=== PATIENT | female | born 1950 | race Caucasian/White ===

== ENCOUNTER 2019-05-12 10:54 | Outpatient (RCR) | payer MEDICARE, SELFPAY ==
--- NOTE | 2019-05-12 11:06 | MM_ITS ---
WS: [id number] BILATERAL DIAGNOSTIC DIGITAL MAMMOGRAM WITH CAD HISTORY: HX OF BREAST CA COMPARISON: 05/08/2018 and 10/23/2017 and 08/24/2016 Bilateral CC and MLO views submitted. Computer aided detection analyzed. Breast composition: There are scattered areas of fibroglandular density. No suspicious masses, microc alcifications or architectural distortion. Status post lumpectomy RIGHT breast. Volume loss in the RI GHT breast. There are some stable calcifications in the central breast which have been present. No ad verse changes. MM/[place] [id number] IMPRESSION: BI-RADS: 2-Benign FOLLOW UP: 1 Year Follow-up
[2019-05-12 11:31] LABS: Basophils # 0.1 10^3/uL (0.0-0.1); Eosinophils # 0.2 10^3/uL (0.0-0.8); Hematocrit 40.2 % (37.0-47.0); Hemoglobin 13.3 g/dL (11.5-15.3); Lymphocytes # 4.3 10^3/uL (0.8-4.8); Lymphocytes % 46.7 %; Mean Corpuscular HGB Conc 33.1 g/dL (30.0-36.0); Mean Corpuscular Hemoglobin 28.6 pg (28.0-34.0); Mean Corpuscular Volume 86.5 fL (81-99); Mean Platelet Volume 8.9 fL (7.4-10.4); Monocytes # 0.6 10^3/uL (0.2-0.9); Monocytes % 6.8 %; Nucleated Red Blood Cells % 0 %; Platelet Count 284 10^3/cmm (130-400); Red Blood Count 4.65 10^6/uL (4.1-5.3); Red Cell Distribution Width 13.2 % (12.1-15.1); White Blood Count 9.2 10^3/uL (4.0-10.0)
[2019-05-12 11:45] LABS: Alanine Aminotransferase 24 U/L (0-33); Albumin Level 4.5 g/dL (3.5-5.2); Alkaline Phosphatase 93 IU/L (35-105); Anion Gap 18.3 (5-19); Aspartate Amino Transferase 24 U/L (0-32); Blood Urea Nitrogen 25 mg/dL (8-23); Calcium 10.7 mg/Dl (8.8-10.2); Carbon Dioxide 21 mmol/L (22-29); Chloride 99 mmol/L (98-107); Globulin 2.6 g/dL (1.3-4.6); Glomerular Filtration Rate 34.4 mL/min (90-130); Glucose 108 mg/dL (74-106); Potassium 4.3 mmol/L (3.5-5.1); Sodium 134 mmol/L (136-145); Total Bilirubin 0.4 mg/dL (0.15-1.2); Total Protein 7.1 g/dL (6.6-8.7)
--- NOTE | 2019-05-18 10:41 | ONC FU_ITS ---
Dr. Kaye Patient Follow-Up Note Patient: Florencia Stearns I Unit #: [id number]: [id number] Dicatated By: Carmelo Kaye M.D.Date of Visit:May 12, 2019 Onc Med Follow-up/Prog Note Chief Complaint: Breast cancer. History of Present Illness: This is a 68 year-old woman with grade 2 invasive ductal carcinoma of the right breast, by clinical evaluation stage at least IIB (T2, N1, M0), ER/VT positive and HER-2/taran positive. She had presented with a palpable lump in her right breast. She was evaluated with diagnostic mammogram on 02/17/2016. It showed a dense irregular mass in the central right breast at the 12:00 axis. It measured 4.4 x 3.3 cm. An enlarged right axillary lymph node measured 2.4 cm. By ultrasound the breast mass measured 3.0 x 3.7 cm. Ultrasound also showed a single axillary lymph node which measured 1.8 cm. The appearance was highly suggestive of malignancy. Needle core biopsy of the breast mass on 02/24/2016 showed grade 2/3 invasive ductal carcinoma with a background of intermediate grade DCIS. The breast prognostic profile showed high Ki-67 at 36%. ER was positive at 55% with VT positive at 8%. The HER-2/taran was also positive, 3+ by IHC with 15.0 HER-2 copies/cell. The amplification ratio by FISH was 4.2. I had seen her initially on 03/08/2016. She then underwent neoadjuvant chemotherapy with TCH-P, cycle 1 beginning on 03/22/2016. Her treatment was complicated by fatigue, neutropenia, and peripheral neuropathy. She did require Neulasta prophylaxis beginning with cycle 2. Following the 4th cycle her neuropathy worsen to grade 3, and with cycles 5 and 6 her treatment was limited to Herceptin and Perjeta, with omission of the Taxotere and carboplatin. During this time she had seen Dr. Skelton for repeat biopsies of the right breast. Pathology was benign, consistent with complete response. She then began radiation to the right breast on 10/22/2016. She completed treatment on 12/07/2016 to a total dose of 6040 cGy. Her treatment also included the right posterior axilla to a dose of 840 cGy and the right supraclavicular region to a dose of 5040 cGy. She continued the Herceptin infusions at 3-week intervals. She received her final cycle of treatment on 03/18/2017. Overall, she tolerated it well. Her DEXA scan on 04/24/2017 showed a T score of -1.6 in the lumbar spine, -1.0 in the left femoral neck, and -0.9 in the right femoral neck. CT pulmonary angiogram on 04/24/2017 showed no evidence of pulmonary embolism. A pleural-based right anterior upper lobe mass measuring 1.5 x 2.1 cm was felt to be consistent with infectious or inflammatory process, though metastatic disease was noted to be an additional consideration. There was right hilar lymphadenopathy measuring 1.7 cm. A 1.1 cm right hepatic low-attenuation lesion was felt to likely represent an incidental cyst or hemangioma. She had further evaluation with PET/CT on 05/13/2017. It was a negative exam with resolution of the right upper lobe pulmonary lesion and no sites of adenopathy or other metastatic disease identified. Minimal FDG uptake involving subcentimeter hilar lymph nodes was suggestive of reactive lymphadenopathy. She began adjuvant hormonal therapy with anastrozole 1 mg daily on 07/15/2017. Her other medical illnesses include hypertension, hyperlipidemia, degenerative arthritis, and chronic anxiety. She also has a history of chronic headache. She has history of smoking 1 pack of cigarettes daily for 15 years, but she quit smoking in 2011. INTERIM HISTORY: She was seen for a scheduled visit on 05/08/2018. She reported significant increase in musculoskeletal pain as well as worsening fatigue and some cognitive dysfunction. At that point I did recommend that she put the anastrozole on hold. At her follow-up visit on 06/09/2018 her symptoms had improved, and at that point she began further adjuvant hormonal therapy with exemestane 25 mg daily. I had seen her for a follow-up visit on 09/09/2018. At that point she had developed an itchy skin eruption. I had suspected that at least some component was medication related, and I did have her stop taking both the exemestane and the alendronate. The skin eruption subsequently improved. However, on 09/22/2018 she was placed in the hospital for overnight observation after presenting to the emergency room with abdominal pain and rectal bleeding. Her CT abdomen/pelvis showed findings consistent with acute colitis or possibly diverticulitis. She was treated empirically with ciprofloxacin and metronidazole. She was discharged the following day, then admitted to [facility] later that same day after she developed nausea/vomiting and fever. She was discharged on 09/28/2018 to continue on the same antibiotic therapy. I had seen for a followup visit on 10/21/2018. At that point she was feeling better and she restarted exemestane 25 mg daily. She is seen for a scheduled visit. She has been feeling pretty good generally. Her main complaint is that just before [place] she: Flu bug with sinusitis symptoms and cough. She is just now getting better. Her energy is not as good, she says she tires real quick. ECOG score is 1. Her appetite is still been good, and her weight is stable. She has not had fever or night sweats. She occasionally has hot flashes. Her sinus symptoms now are better, and she has just occasional cough. She says her breathing is not real good. She does not complain of chest pain. She still has occasional postprandial nausea. She has no other GI or complaints. She has pain in her right shoulder and right arm. She also has back pain on the right side. She has neuropathy pain in her feet and legs. She has numbness in both hands, left worse than right. Medications: Amitriptyline HCl 1 Tablet (of 25 mg) Oral at bedtime, Cholecalciferol 1 Capsule (of 25 mg) Oral daily, Citalopram Hydrobromide 1 (20 mg) Tablet Oral at bedtime, Exemestane 1 Tablet (of 25 mg) Oral daily, Hydrocodone-Acetaminophen 1 - 2 (5-325 mg) Tablet Oral q 4 hours PRN, Lisinopril 1 (20 mg) Tablet Oral daily, Pantoprazole Sodium 1 (40 mg) Tablet, enteric coated Oral daily Allergies: Penicillins and Requip. Review of Systems: Constitutional - Her energy is not as good, and she tires quickly. She is doing light work. Her appetite is good and her weight is stable. No fever or night sweats. She occasionally has hot flashes. ECOG score is 1, ENMT - Her sinus drainage is better. No mouth sores. No sore throat or difficulty swallowing, Hematologic/Lymphatic - No abnormal bruising or bleeding, Respiratory - She has shortness of breath with activity. She occasionally has cough. No pleuritic pain or hemoptysis, Cardiovascular - No angina pain. No palpitations, Gastrointestinal - She has nausea occasinally after eating. No heartburn or acid reflux. No diarrhea or constipation. No blood in the stool or black stools, Genitourinary (F) - No dysuria or hematuria. No urinary frequency. No urgency or incontinence, Musculoskeletal - She has pain in her right shoulder and right arm. She had back pain, and she also has pain in her feet and legs, Integumentary - No skin complications, Neurologic - No headache. She occasionally has dizziness. She has numbness/tingling in both hands, left worse than right, Psychiatric - No anxiety or depression. She has not been sleeping well at night lately. Vital Signs: Performed on May 12, 2019 13:08 Height - 64.00 in Weight - 170.0 lbs (HIGH) BSA - 1.83 sq.m BMI - 29.18 Temperature - 98.0 F (LOW) Pulse - 88 /min Respiration - 22 /min BP - 130/64 mm(hg) O2 Sat - 99 % Pain - 5 Physical Examination: Constitutional - She looks pretty good generally, Eyes - Sclerae nonicteric. Conjunctivae clear, ENMT - No lesions noted in the oral cavity, Hematologic/Lymphatic - No cervical, clavicular, or axillary adenopathy, Respiratory - Lungs are clear with good air movement bilaterally, Cardiovascular - Heart rhythm is regular. There is no murmur, gallop, or rub noted, Abdomen - Soft. Liver and spleen are not enlarged. There is no abdominal mass or ascites noted and there is no inguinal adenopathy, Extremities - No edema, Neurologic - No focal neurologic deficits noted. Impression: 1. Patient with rade 2/3 invasive ductal carcinoma of the right breast, ER/VT positive and HER-2/taran positive. By clinical evaluation her disease is at least stage IIB (T2, N1, MX). 2. She underwent needle core biopsy on 02/24/2016. 3. Neoadjuvant chemotherapy with Taxotere/carboplatin in combination with Herceptin and Perjeta began 03/22/2016. As of 07/11/2016 she had completed 6 cycles of treatment. Following the 4th cycle she developed grade 3 neuropathy, and with cycle 5 and 6 the carboplatin/Taxotere portion of the treatment was held. She did receive the Herceptin/Perjeta at the usual dosages. Her follow-up PET/CT on 06/22/2016 was consistent with a complete response to the neoadjuvant chemotherapy. 4. Her repeat biopsies of the right breast were benign. She was then given radiation to the right breast, completed on 12/07/2016 to a total dose of 6040 cGy. 5. She continued Herceptin at a 3-week dosing interval for a full year of treatment, completed on 03/18/2017. Her other medical illnesses include: 6. Hypertension. 7. Hyperlipidemia. 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 9. Chronic headaches. 10. Chronic anxiety. She began adjuvant hormonal therapy with anastrozole 1 mg daily in July 2017. As of 05/08/2018 the anastrozole was put on hold due to increased fatigue and musculoskeletal pain. At her follow-up visit on 06/09/2018 her symptoms had improved, and at that point she began further adjuvant hormonal therapy with exemestane 25 mg daily. At her follow-up visit on 09/09/2018 she had developed a new skin eruption involving several areas. I had suspected that at least some component was medication related, and I did have her stop both the exemestane and the alendronate. The skin eruption subsequently improved. In the meantime, she was hospitalized with acute colitis, but she had uneventful recovery after antibiotic therapy with ciprofloxacin and metronidazole. As of her follow-up visit in October 2018 she restarted exemestane 25 mg daily. She then continued to have fatigue, and she also complained of pain in her back and lower extremities. She reported some difficulty with memory. However, she has been able to continue the exemestane with acceptable toxicity, and thus far there has been no evidence of recurrence of the breast cancer. Plan: She continues adjuvant hormonal therapy with exemestane 25 mg daily. I will see her again in 6 months, or sooner as needed. Signed By: Carmelo Kaye M.D. <<Signature on File>>
== END 2019-06-05 23:59 | disposition home or self-care (01) ==
LOC: ONCMED 10:54
PROVIDERS: Family Provider Physician Assistant Medical; PCP Physician Assistant Medical; Visit Provider Internal Medicine Medical Oncology
DX: C50.111 Malignant neoplasm of central portion of right female breast (principal); I10 Essential (primary) hypertension; E78.5 Hyperlipidemia, unspecified; M19.90 Unspecified osteoarthritis, unspecified site; F41.9 Anxiety disorder, unspecified; R51 Headache; M79.18 Myalgia, other site; G62.9 Polyneuropathy, unspecified; Z17.0 Estrogen receptor positive status [ER+]; Z79.811 Long term (current) use of aromatase inhibitors; Z79.891 Long term (current) use of opiate analgesic; Z87.891 Personal history of nicotine dependence; Z92.21 Personal history of antineoplastic chemotherapy; Z92.3 Personal history of irradiation
CPT/HCPCS: 36415; 77066; 80053; 85025; 99214

== ENCOUNTER 2019-11-03 14:58 | Outpatient (CLI) | payer MEDICARE, SELFPAY ==
--- NOTE | 2019-11-03 15:22 | XR_ITS ---
WS: [id number] DEXA (DUAL ENERGY X-RAY ABSORPTIOMETRY) Bone mineral density was performed using a Hel[employer] machine. 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 T score: -0.9 Z score: 0.4 Right: 0.925 g/cm2. T score: -0.7 Z score: 0.6 10 year probability of a major osteoporotic fracture is 9%. Compared to the prior study from 04/24/2017. Lumbar spine bone mineral density has increased by 6.6%. Bilateral hips bone mineral density has increased by 2.8%. XR/XR DEXA axial skeleton* [id number] IMPRESSION: Normal bone mineral density based upon the WHO classification for females. Significant increase in bone mineral density since the prior study.
== END 2019-11-03 14:59 | disposition home or self-care (01) ==
LOC: RADWPI 15:03
PROVIDERS: Family Provider Physician Assistant Medical; PCP Physician Assistant Medical; Visit Provider Internal Medicine Medical Oncology
DX: E55.9 Vitamin D deficiency, unspecified (principal); Z78.0 Asymptomatic menopausal state; Z79.811 Long term (current) use of aromatase inhibitors
CPT/HCPCS: 77080

== ENCOUNTER 2019-11-17 11:56 | Outpatient (CLI) | payer MEDICARE, SELFPAY ==
[2019-11-17 12:58] LABS: Basophils # 0.1 10^3/uL (0.0-0.1); Basophils % 0.8 %; Eosinophils # 0.2 10^3/uL (0.0-0.8); Eosinophils % 2.2 %; Hematocrit 39.5 % (37.0-47.0); Hemoglobin 12.9 g/dL (11.5-15.3); Lymphocytes # 3.9 10^3/uL (0.8-4.8); Mean Corpuscular HGB Conc 32.7 g/dL (30.0-36.0); Mean Corpuscular Hemoglobin 29.7 pg (28.0-34.0); Mean Corpuscular Volume 90.8 fL (81-99); Monocytes # 0.5 10^3/uL (0.2-0.9); Monocytes % 6.6 %; Neutrophils # 2.99 10^3/uL (1.8-7.7); Nucleated Red Blood Cells % 0 %; Platelet Count 240 10^3/cmm (130-400); Red Blood Count 4.35 10^6/uL (4.1-5.3); Red Cell Distribution Width 14.5 % (12.1-15.1); White Blood Count 7.7 10^3/uL (4.0-10.0)
[2019-11-17 13:52] LABS: 25 Hydroxy Vitamin D 58 ng/mL (30-100); Alanine Aminotransferase 31 U/L (0-33); Albumin Level 4.3 g/dL (3.5-5.2); Alkaline Phosphatase 89 IU/L (35-105); Anion Gap 17.2 (5-19); Aspartate Amino Transferase 27 U/L (0-32); Blood Urea Nitrogen 18 mg/dL (8-23); Calcium 9.8 mg/dL (8.5-10.5); Carbon Dioxide 22 mmol/L (22-29); Chloride 101 mmol/L (98-107); Globulin 3.2 g/dL (1.3-4.6); Glomerular Filtration Rate 34.4 mL/min (90-130); Glucose 99 mg/dL (65-115); Osmolality Calculated 279 mOsm/kg (285-295); Potassium 4.2 mmol/L (3.5-5.1); Sodium 136 mmol/L (136-145); Total Bilirubin 0.5 mg/dL (0.15-1.2); Total Protein 7.5 g/dL (6.6-8.7)
--- NOTE | 2019-11-21 16:56 | ONC FU_ITS ---
Dr. Kaye Patient Follow-Up Note Patient: Florencia Stearns I Unit #: [id number]: 1950 Dicatated By: Carmelo Kaye M.D.Date of Visit:Nov 17, 2019 Onc Med Follow-up/Prog Note Chief Complaint: Breast cancer. History of Present Illness: This is a 68 year-old woman with grade 2 invasive ductal carcinoma of the right breast, by clinical evaluation stage at least IIB (T2, N1, M0), ER/KY positive and HER-2/taran positive. She had presented with a palpable lump in her right breast. She was evaluated with diagnostic mammogram on 02/17/2016. It showed a dense irregular mass in the central right breast at the 12:00 axis. It measured 4.4 x 3.3 cm. An enlarged right axillary lymph node measured 2.4 cm. By ultrasound the breast mass measured 3.0 x 3.7 cm. Ultrasound also showed a single axillary lymph node which measured 1.8 cm. The appearance was highly suggestive of malignancy. Needle core biopsy of the breast mass on 02/24/2016 showed grade 2/3 invasive ductal carcinoma with a background of intermediate grade DCIS. The breast prognostic profile showed high Ki-67 at 36%. ER was positive at 55% with KY positive at 8%. The HER-2/taran was also positive, 3+ by IHC with 15.0 HER-2 copies/cell. The amplification ratio by FISH was 4.2. I had seen her initially on 03/08/2016. She then underwent neoadjuvant chemotherapy with TCH-P, cycle 1 beginning on 03/22/2016. Her treatment was complicated by fatigue, neutropenia, and peripheral neuropathy. She did require Neulasta prophylaxis beginning with cycle 2. Following the 4th cycle her neuropathy worsen to grade 3, and with cycles 5 and 6 her treatment was limited to Herceptin and Perjeta, with omission of the Taxotere and carboplatin. During this time she had seen Dr. Skelton for repeat biopsies of the right breast. Pathology was benign, consistent with complete response. She then began radiation to the right breast on 10/22/2016. She completed treatment on 12/07/2016 to a total dose of 6040 cGy. Her treatment also included the right posterior axilla to a dose of 840 cGy and the right supraclavicular region to a dose of 5040 cGy. She continued the Herceptin infusions at 3-week intervals. She received her final cycle of treatment on 03/18/2017. Overall, she tolerated it well. Her DEXA scan on 04/24/2017 showed a T score of -1.6 in the lumbar spine, -1.0 in the left femoral neck, and -0.9 in the right femoral neck. CT pulmonary angiogram on 04/24/2017 showed no evidence of pulmonary embolism. A pleural-based right anterior upper lobe mass measuring 1.5 x 2.1 cm was felt to be consistent with infectious or inflammatory process, though metastatic disease was noted to be an additional consideration. There was right hilar lymphadenopathy measuring 1.7 cm. A 1.1 cm right hepatic low-attenuation lesion was felt to likely represent an incidental cyst or hemangioma. She had further evaluation with PET/CT on 05/13/2017. It was a negative exam with resolution of the right upper lobe pulmonary lesion and no sites of adenopathy or other metastatic disease identified. Minimal FDG uptake involving subcentimeter hilar lymph nodes was suggestive of reactive lymphadenopathy. She began adjuvant hormonal therapy with anastrozole 1 mg daily on 07/15/2017. Her other medical illnesses include hypertension, hyperlipidemia, degenerative arthritis, and chronic anxiety. She also has a history of chronic headache. She has history of smoking 1 pack of cigarettes daily for 15 years, but she quit smoking in 2011. INTERIM HISTORY: She was seen for a scheduled visit on 05/08/2018. She reported significant increase in musculoskeletal pain as well as worsening fatigue and some cognitive dysfunction. At that point I did recommend that she put the anastrozole on hold. At her follow-up visit on 06/09/2018 her symptoms had improved, and at that point she began further adjuvant hormonal therapy with exemestane 25 mg daily. I had seen her for a follow-up visit on 09/09/2018. At that point she had developed an itchy skin eruption. I had suspected that at least some component was medication related, and I did have her stop taking both the exemestane and the alendronate. The skin eruption subsequently improved. However, on 09/22/2018 she was placed in the hospital for overnight observation after presenting to the emergency room with abdominal pain and rectal bleeding. Her CT abdomen/pelvis showed findings consistent with acute colitis or possibly diverticulitis. She was treated empirically with ciprofloxacin and metronidazole. She was discharged the following day, then admitted to [facility] later that same day after she developed nausea/vomiting and fever. She was discharged on 09/28/2018 to continue on the same antibiotic therapy. I had seen for a followup visit on 10/21/2018. At that point she was feeling better and she restarted exemestane 25 mg daily. She is seen for a scheduled visit. She has been feeling pretty good generally. Her main complaint is that she has been having trouble with her back. She says she has had intermittent back problems forever, and recently her lower back pain has been getting worse again. She also has pain in her legs and feet. She complains that her legs get tired, and they hurt at night. She has limited activity tolerance, and she tires quickly. ECOG score is 1. She has good appetite. She has not had fever or night sweats. She has hot flashes, but they are not too bad now. She has shortness of breath with activity. She has cough associated with allergies. She does not complain of chest pain. She occasionally has nausea. She still has pain in her right lower rib cage/right upper quadrant area. It does tend to be positional. She has no other GI or complaints. She occasionally has headache. She has some dizziness, mainly with hot weather. She sometimes has numbness in the ends of her fingers. She has no other focal neurologic symptoms. Medications: Amitriptyline HCl 1 Tablet (of 25 mg) Oral at bedtime, Cholecalciferol 1 Capsule (of 25 mg) Oral daily, Citalopram Hydrobromide 1 (20 mg) Tablet Oral at bedtime, Exemestane 1 Tablet (of 25 mg) Oral daily, Hydrocodone-Acetaminophen 1 - 2 (5-325 mg) Tablet Oral q 4 hours PRN, Lisinopril 1 (20 mg) Tablet Oral daily, Pantoprazole Sodium 1 (40 mg) Tablet, enteric coated Oral daily, Triamcinolone Acetonide 1 (0.1 %) Cream Topical PRN Allergies: Penicillins and Requip. Review of Systems: Constitutional - She tires quickly. Appetite is good and weight is stable. No fever or night sweats. She has some hot flashes, but not too bad. ECOG score is 1, ENMT - She always has sinus drainage. No mouth sores. No sore throat or difficulty swallowing, Hematologic/Lymphatic - No abnormal bruising or bleeding, Respiratory - She has shortness of breath with activity. She has allergy related cough. No pleuritic pain or hemoptysis, Cardiovascular - No angina pain. No palpitations, Gastrointestinal - She occasionally has nausea, and she still has some in her right lower rib cage/right upper quadrant area. It is positional. No vomiting. No heartburn or acid reflux. No diarrhea or constipation. No blood in the stool or black stools, Genitourinary (F) - No dysuria or hematuria. No urinary frequency. No urgency or incontinence, Musculoskeletal - She has been having more back pain, and she has pain in her feet and legs, Integumentary - , Neurologic - She has occasional headache. She sometimes has dizziness. She sometimes has numbness at the ends of her fingers. No other focal neurologic symptoms, Psychiatric - She has some anxiety and depression. No insomnia. Vital Signs: Performed on Nov 17, 2019 13:43 Height - 64.00 in Weight - 168.6 lbs (LOW) BSA - 1.82 sq.m BMI - 28.94 Temperature - 97.1 F (LOW) Pulse - 89 /min Respiration - 24 /min BP - 124/66 mm(hg) O2 Sat - 98 % Pain - 0 Physical Examination: Constitutional - She looks pretty good generally, Eyes - Sclerae nonicteric. Conjunctivae clear, ENMT - No lesions noted in the oral cavity, Hematologic/Lymphatic - No cervical or clavicular adenopathy, Respiratory - Lungs are clear with good air movement bilaterally, Cardiovascular - Heart rhythm is regular. There is a II/ systolic murmur. There is no gallop or rub noted, Breasts - The right breast is indurated and firm. There is mild tenderness in the lateral right chest wall. The are no breast masses noted. There is no axillary adenopathy, Abdomen - Soft. Liver and spleen are not enlarged. There is no abdominal mass or ascites noted and there is no inguinal adenopathy, Extremities - No edema. Dorsalis pedis pulses are palpable bilaterally, Neurologic - No focal neurologic deficits noted. Lab/Imaging: Test performed on Nov 17, 2019 12:24 Sodium 136 mmol/L Vitamin D (25-Hydroxy), Total 58 ng/mL Potassium 4.2 mmol/L Chloride 101 mmol/L CO2 22 mmol/L Anion Gap 17.2 BUN 18 mg/dL Creatinine 1.5 mg/dL Cr Clearance (Est) 42.7400 mL/min eGFR 34.4 mL/min Glucose 99 mg/dL Calcium 9.8 mg/dL Protein, Total 7.5 g/dL Albumin 4.3 g/dL Globulin 3.2 g/dL Bilirubin, Total 0.5 mg/dL ALT (SGPT) 31 U/L AST (SGOT) 27 U/L Alkaline Phosphatase 89 IU/L WBC 7.7 10 3/uL RBC 4.35 10 6/uL HGB 12.9 g/dL HCT 39.5 % MCV 90.8 fL MCH 29.7 pg MCHC 32.7 g/dL RDW 14.5 % Platelet Count 240 10 3/cmm MPV 9.0 fL Neutrophils 2.99 10 3/uL Lymphocytes 3.9 10 3/uL Monocytes 0.5 10 3/uL Eosinophils 0.2 10 3/uL Basophils 0.1 10 3/uL Neutrophil % 39.0 % Lymphocyte % 51.0 % Monocyte % 6.6 % Eosinophil % 2.2 % Basophils % 0.8 % NRBC % 0 % Impression: 1. Patient with rade 2/3 invasive ductal carcinoma of the right breast, ER/KY positive and HER-2/taran positive. By clinical evaluation her disease is at least stage IIB (T2, N1, MX). 2. She underwent needle core biopsy on 02/24/2016. 3. Neoadjuvant chemotherapy with Taxotere/carboplatin in combination with Herceptin and Perjeta began 03/22/2016. As of 07/11/2016 she had completed 6 cycles of treatment. Following the 4th cycle she developed grade 3 neuropathy, and with cycle 5 and 6 the carboplatin/Taxotere portion of the treatment was held. She did receive the Herceptin/Perjeta at the usual dosages. Her follow-up PET/CT on 06/22/2016 was consistent with a complete response to the neoadjuvant chemotherapy. 4. Her repeat biopsies of the right breast were benign. She was then given radiation to the right breast, completed on 12/07/2016 to a total dose of 6040 cGy. 5. She continued Herceptin at a 3-week dosing interval for a full year of treatment, completed on 03/18/2017. Her other medical illnesses include: 6. Hypertension. 7. Hyperlipidemia. 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 9. Chronic headaches. 10. Chronic anxiety. She began adjuvant hormonal therapy with anastrozole 1 mg daily in July 2017. As of 05/08/2018 the anastrozole was put on hold due to increased fatigue and musculoskeletal pain. At her follow-up visit on 06/09/2018 her symptoms had improved, and at that point she began further adjuvant hormonal therapy with exemestane 25 mg daily. At her follow-up visit on 09/09/2018 she had developed a new skin eruption involving several areas. I had suspected that at least some component was medication related, and I did have her stop both the exemestane and the alendronate. The skin eruption subsequently improved. In the meantime, she was hospitalized with acute colitis, but she had uneventful recovery after antibiotic therapy with ciprofloxacin and metronidazole. As of her follow-up visit in October 2018 she restarted exemestane 25 mg daily. During further follow-up she has had ongoing complaints of fatigue and musculoskeletal pain, but she has been able to tolerate the exemestane with acceptable toxicity. Thus far there has been no evidence of recurrence of the breast cancer. Plan: She continues adjuvant hormonal therapy with exemestane 25 mg daily. I will see her again in 6 months. Signed By: Carmelo Kaye M.D. <<Signature on File>>
== END 2019-11-17 11:57 | disposition home or self-care (01) ==
LOC: ONCMED 12:01
PROVIDERS: Family Provider Physician Assistant Medical; PCP Physician Assistant Medical; Visit Provider Internal Medicine Medical Oncology
DX: C50.111 Malignant neoplasm of central portion of right female breast (principal); Z17.0 Estrogen receptor positive status [ER+]; R53.83 Other fatigue; M79.10 Myalgia, unspecified site; I10 Essential (primary) hypertension; E78.5 Hyperlipidemia, unspecified; M19.90 Unspecified osteoarthritis, unspecified site; M47.9 Spondylosis, unspecified; R51 Headache; F41.9 Anxiety disorder, unspecified; Z79.899 Other long term (current) drug therapy; Z92.3 Personal history of irradiation; Z79.811 Long term (current) use of aromatase inhibitors
CPT/HCPCS: 80053; 82306; 85025; 99214

== ENCOUNTER 2020-05-24 08:31 | Outpatient (CLI) | payer MEDICARE, SELFPAY ==
--- NOTE | 2020-05-24 08:40 | MM_ITS ---
WS: [id number] BILATERAL DIGITAL SCREENING MAMMOGRAPHY WITH CAD CLINICAL INFORMATION: HX OF BREAST CA HISTORY: Screening mammogram. No current complaints. COMPARISON: May 12, 2019 TECHNIQUE: Bilateral CC and MLO views. FINDINGS: Scattered fibroglandular densities bilaterally. No suspicious focal mass, asymmetry, calcifications, or architectural distortion. No evidence of malignancy. Stable punctate calcifications. Vascular Calc ification. MM/[id number] IMPRESSION: BI-RADS: 2-Benign FOLLOW UP: 1 Year Follow-up Recommend return to annual diagnostic mammography.
== END 2020-05-24 08:32 | disposition home or self-care (01) ==
LOC: RADSHAW 08:38
PROVIDERS: Family Provider Physician Assistant Medical; PCP Physician Assistant Medical; Visit Provider Internal Medicine Medical Oncology
DX: Z85.3 Personal history of malignant neoplasm of breast (principal)
CPT/HCPCS: 77066

== ENCOUNTER 2020-05-24 15:00 | Outpatient (CLI) | payer MEDICARE, SELFPAY ==
--- NOTE | 2020-05-28 11:22 | ONC FU_ITS ---
Dr. Kaye Patient Follow-Up Note Patient: Florencia Stearns I Unit #: [id number]: 1950 Dicatated By: Carmelo Kaye M.D.Date of Visit:May 24, 2020 Onc Med Follow-up/Prog Note Chief Complaint: Breast cancer. History of Present Illness: This is a 69 year-old woman with grade 2 invasive ductal carcinoma of the right breast, by clinical evaluation stage at least IIB (T2, N1, M0), ER/IL positive and HER-2/taran positive. She had presented with a palpable lump in her right breast. She was evaluated with diagnostic mammogram on 02/17/2016. It showed a dense irregular mass in the central right breast at the 12:00 axis. It measured 4.4 x 3.3 cm. An enlarged right axillary lymph node measured 2.4 cm. By ultrasound the breast mass measured 3.0 x 3.7 cm. Ultrasound also showed a single axillary lymph node which measured 1.8 cm. The appearance was highly suggestive of malignancy. Needle core biopsy of the breast mass on 02/24/2016 showed grade 2/3 invasive ductal carcinoma with a background of intermediate grade DCIS. The breast prognostic profile showed high Ki-67 at 36%. ER was positive at 55% with [place] positive at 8%. The HER-2/taran was also positive, 3+ by IHC with 15.0 HER-2 copies/cell. The amplification ratio by FISH was 4.2. I had seen her initially on 03/08/2016. She then underwent neoadjuvant chemotherapy with TCH-P, cycle 1 beginning on 03/22/2016. Her treatment was complicated by fatigue, neutropenia, and peripheral neuropathy. She did require Neulasta prophylaxis beginning with cycle 2. Following the 4th cycle her neuropathy worsen to grade 3, and with cycles 5 and 6 her treatment was limited to Herceptin and Perjeta, with omission of the Taxotere and carboplatin. During this time she had seen Dr. Skelton for repeat biopsies of the right breast. Pathology was benign, consistent with complete response. She then began radiation to the right breast on 10/22/2016. She completed treatment on 12/07/2016 to a total dose of 6040 cGy. Her treatment also included the right posterior axilla to a dose of 840 cGy and the right supraclavicular region to a dose of 5040 cGy. She continued the Herceptin infusions at 3-week intervals. She received her final cycle of treatment on 03/18/2017. Overall, she tolerated it well. Her DEXA scan on 04/24/2017 showed a T score of -1.6 in the lumbar spine, -1.0 in the left femoral neck, and -0.9 in the right femoral neck. CT pulmonary angiogram on 04/24/2017 showed no evidence of pulmonary embolism. A pleural-based right anterior upper lobe mass measuring 1.5 x 2.1 cm was felt to be consistent with infectious or inflammatory process, though metastatic disease was noted to be an additional consideration. There was right hilar lymphadenopathy measuring 1.7 cm. A 1.1 cm right hepatic low-attenuation lesion was felt to likely represent an incidental cyst or hemangioma. She had further evaluation with PET/CT on 05/13/2017. It was a negative exam with resolution of the right upper lobe pulmonary lesion and no sites of adenopathy or other metastatic disease identified. Minimal FDG uptake involving subcentimeter hilar lymph nodes was suggestive of reactive lymphadenopathy. She began adjuvant hormonal therapy with anastrozole 1 mg daily on 07/15/2017. She was seen for a scheduled visit on 05/08/2018. She reported significant increase in musculoskeletal pain as well as worsening fatigue and some cognitive dysfunction. At that point I did recommend that she put the anastrozole on hold. At her follow-up visit on 06/09/2018 her symptoms had improved, and at that point she began further adjuvant hormonal therapy with exemestane 25 mg daily. I had seen her for a follow-up visit on 09/09/2018. At that point she had developed an itchy skin eruption. I had suspected that at least some component was medication related, and I did have her stop taking both the exemestane and the alendronate. The skin eruption subsequently improved. However, on 09/22/2018 she was placed in the hospital for overnight observation after presenting to the emergency room with abdominal pain and rectal bleeding. Her CT abdomen/pelvis showed findings consistent with acute colitis or possibly diverticulitis. She was treated empirically with ciprofloxacin and metronidazole. She was discharged the following day, then admitted to [facility] later that same day after she developed nausea/vomiting and fever. She was discharged on 09/28/2018 to continue on the same antibiotic therapy. I had seen for a followup visit on 10/21/2018. At that point she was feeling better and she restarted exemestane 25 mg daily. Her other medical illnesses include hypertension, hyperlipidemia, degenerative arthritis, and chronic anxiety. She also has a history of chronic headache. She has history of smoking 1 pack of cigarettes daily for 15 years, but she quit smoking in 2011. INTERIM HISTORY: She is seen for a scheduled visit. She continues to complain that she feels tired all the time. She is able to do light work. ECOG score is 1. She says she is not really hungry, but her weight actually is up a few pounds. She has not had fever, night sweats, or hot flashes. She has shortness of breath with activity. She also has some cough, attributable to a tickle in her throat. She does not complain of chest pain. She still sometimes has postprandial nausea. She has no other GI or complaints. She has ongoing complaints of back pain as well as pain in her legs and feet. She occasionally has headache and she sometimes has dizziness. She still has numbness in the tips of her fingers. Medications: Amitriptyline HCl 1 Tablet (of 25 mg) Oral at bedtime, Cholecalciferol 1 Capsule (of 25 mg) Oral daily, Citalopram Hydrobromide 1 (20 mg) Tablet Oral at bedtime, Exemestane 1 Tablet (of 25 mg) Oral daily, Hydrocodone-Acetaminophen 1 - 2 (5-325 mg) Tablet Oral q 4 hours PRN, Lisinopril 1 (20 mg) Tablet Oral daily, Pantoprazole Sodium 1 (40 mg) Tablet, enteric coated Oral daily, Triamcinolone Acetonide 1 (0.1 %) Cream Topical PRN Allergies: Penicillins and Requip. Vital Signs: Performed on May 24, 2020 13:00 Height - 64.00 in Weight - 172 lbs (HIGH) BSA - 1.83 sq.m BMI - 29.52 Temperature - 99.2 F (HIGH) Pulse - 85 /min Respiration - 16 /min BP - 138/70 mm(hg) O2 Sat - 97 % Pain - 0 Physical Examination: Constitutional - She looks pretty good generally, Eyes - Sclerae nonicteric. Conjunctivae clear, ENMT - No lesions noted in the oral cavity, Hematologic/Lymphatic - No cervical, clavicular, or axillary adenopathy, Respiratory - Lungs are clear with good air movement bilaterally, Cardiovascular - Heart rhythm is regular. There is a II/ systolic murmur. There is no gallop or rub noted, Abdomen - Soft. Liver and spleen are not enlarged. There is no abdominal mass or ascites noted and there is no inguinal adenopathy, Extremities - No edema, Neurologic - No focal neurologic deficits noted. Lab/Imaging: Test performed on May 23, 2020 11:45 Glucose 155 mg/dL BUN 15 mg/dL Creatinine 1.43 mg/dL Cr Clearance (Est) 45.09 mL/min Sodium 140 mmol/L Potassium 4.3 mmol/L Chloride 102 mmol/L CO2 25 mmol/L Calcium 9.4 mg/dL Protein, Total 6.5 g/dL Albumin 4.2 g/dL Bilirubin, Total 0.3 mg/dL Alkaline Phosphatase 104 IU/L AST (SGOT) 22 IU/L ALT (SGPT) 24 IU/L WBC 7.6 10^9/L RBC 4.55 10^12/L HGB 13.4 g/dL HCT 41.1 % MCV 90.3 fl MCH 29.5 pg MCHC 32.6 g/dL RDW 13.9 % Platelet Count 213 10^9/L MPV 9.2 fL Neutrophils (Gran) 3.65 10^9/L Lymphocytes 3.30 10^9/L Monocytes 0.38 10^9/L Eosinophils 0.21 10^9/L Basophils 0.06 10^9/L Manual Lymphocytes 43 % Manual Monocytes 5 % Manual Eosinophils 3 % Manual Basophils 1 % Problem List: 1. Grade 2/3 invasive ductal carcinoma of the right breast, ER/IL positive and HER-2/taran positive. By clinical evaluation her disease was at least stage IIB (T2, N1, MX). 2. She had a completed pathologic response to neoadjuvant chemotherapy with 6 cycles of Taxotere/carboplatin in combination with Herceptin and Perjeta began 03/22/2016. The carboplatin/Taxotere portion of the treatment was held with cycles 5 and 6 due to worsening neuropathy. She did receive the Herceptin/Perjeta at the usual dosages. 3. She was then given radiation to the right breast, completed on 12/07/2016 to a total dose of 6040 cGy. She continued Herceptin at a 3-week dosing interval for a full year of treatment, completed on 03/18/2017. 4. She began adjuvant hormonal therapy with anastrozole 1 mg daily in July 2017. As of 05/08/2018 the anastrozole was put on hold due to increased fatigue and musculoskeletal pain. At her follow-up visit on 06/09/2018 her symptoms had improved, and at that point she began further adjuvant hormonal therapy with exemestane 25 mg daily. 5. Her baseline DEXA scan on 04/24/2017 showed osteopenia with T score -1.6 in the lumbar spine. 6. Hypertension. 7. Hyperlipidemia. 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 9. Chronic headaches. 10. Chronic anxiety. Problems Addressed with this Encounter and Plan: 1. Grade 2/3 invasive ductal carcinoma of the right breast, ER/IL positive and HER-2/taran positive. By clinical evaluation her disease was at least stage IIB (T2, N1, MX). She had a complete response to neoadjuvant chemotherapy with TCH-P. She was then given radiation to the right breast, completed in December 2016. She began adjuvant hormonal therapy with anastrozole in July 2017. As of June 2018 her adjuvant hormonal therapy was changed to exemestane 25 mg daily. During follow-up she has had some ongoing complaints with fatigue and musculoskeletal pain, but she has been able to tolerate the exemestane with acceptable side effects and thus far there has been no evidence of recurrence of the breast cancer. She continues adjuvant hormonal therapy with exemestane 25 mg daily. I will see her again in 6 months. 2. She has chronic musculoskeletal pain and she has some component of chronic neuropathy pain following her chemotherapy. It is managed adequately with her current medication. 3. She has chronic fatigue and excessive daytime somnolence. Her symptoms are somewhat suspicious for obstructive sleep apnea. At least for now she declines a sleep study. Signed By: Carmelo Kaye M.D. <<Signature on File>>
== END 2020-05-24 15:01 | disposition home or self-care (01) ==
LOC: ONCMED 05-25 10:06
PROVIDERS: Family Provider Physician Assistant Medical; PCP Physician Assistant Medical; Visit Provider Internal Medicine Medical Oncology
DX: C50.111 Malignant neoplasm of central portion of right female breast (principal); Z17.0 Estrogen receptor positive status [ER+]; D70.1 Agranulocytosis secondary to cancer chemotherapy; T45.1X5A Adverse effect of antineoplastic and immunosuppressive drugs, initial encounter; R53.0 Neoplastic (malignant) related fatigue; I10 Essential (primary) hypertension; E78.5 Hyperlipidemia, unspecified; M47.9 Spondylosis, unspecified; G43.919 Migraine, unspecified, intractable, without status migrainosus; F41.9 Anxiety disorder, unspecified; Z78.0 Asymptomatic menopausal state; Z79.811 Long term (current) use of aromatase inhibitors; Z85.3 Personal history of malignant neoplasm of breast
CPT/HCPCS: 77066; 99214

== ENCOUNTER 2021-01-24 10:00 | Outpatient (CLI) | payer MEDICARE, SELFPAY ==
--- NOTE | 2021-01-24 11:18 | ONC FU_ITS ---
Dr. Kaye Patient Follow-Up Note Patient: Florencia Stearns I Unit #: [id number]: 1950 Dicatated By: Carmelo Kaye M.D.Date of Visit:Jan 24, 2021 Onc Med Follow-up/Prog Note Chief Complaint: Breast cancer/cutaneous melanoma. History of Present Illness: This is a 70 year-old woman with grade 2 invasive ductal carcinoma of the right breast, by clinical evaluation stage at least IIB (T2, N1, M0), ER/MO positive and HER-2/taran positive. 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 She had presented with a palpable lump in her right breast. She was evaluated with diagnostic mammogram on 02/17/2016. It showed a dense irregular mass in the central right breast at the 12:00 axis. It measured 4.4 x 3.3 cm. An enlarged right axillary lymph node measured 2.4 cm. By ultrasound the breast mass measured 3.0 x 3.7 cm. Ultrasound also showed a single axillary lymph node which measured 1.8 cm. The appearance was highly suggestive of malignancy. Needle core biopsy of the breast mass on 02/24/2016 showed grade 2/3 invasive ductal carcinoma with a background of intermediate grade DCIS. The breast prognostic profile showed high Ki-67 at 36%. ER was positive at 55% with MO positive at 8%. The HER-2/taran was also positive, 3+ by IHC with 15.0 HER-2 copies/cell. The amplification ratio by FISH was 4.2. I had seen her initially on 03/08/2016. She then underwent neoadjuvant chemotherapy with TCH-P, cycle 1 beginning on 03/22/2016. Her treatment was complicated by fatigue, neutropenia, and peripheral neuropathy. She did require Neulasta prophylaxis beginning with cycle 2. Following the 4th cycle her neuropathy worsen to grade 3, and with cycles 5 and 6 her treatment was limited to Herceptin and Perjeta, with omission of the Taxotere and carboplatin. During this time she had seen Dr. Skelton for repeat biopsies of the right breast. Pathology was benign, consistent with complete response. She then began radiation to the right breast on 10/22/2016. She completed treatment on 12/07/2016 to a total dose of 6040 cGy. Her treatment also included the right posterior axilla to a dose of 840 cGy and the right supraclavicular region to a dose of 5040 cGy. She continued the Herceptin infusions at 3-week intervals. She received her final cycle of treatment on 03/18/2017. Overall, she tolerated it well. Her DEXA scan on 04/24/2017 showed a T score of -1.6 in the lumbar spine, -1.0 in the left femoral neck, and -0.9 in the right femoral neck. CT pulmonary angiogram on 04/24/2017 showed no evidence of pulmonary embolism. A pleural-based right anterior upper lobe mass measuring 1.5 x 2.1 cm was felt to be consistent with infectious or inflammatory process, though metastatic disease was noted to be an additional consideration. There was right hilar lymphadenopathy measuring 1.7 cm. A 1.1 cm right hepatic low-attenuation lesion was felt to likely represent an incidental cyst or hemangioma. She had further evaluation with PET/CT on 05/13/2017. It was a negative exam with resolution of the right upper lobe pulmonary lesion and no sites of adenopathy or other metastatic disease identified. Minimal FDG uptake involving subcentimeter hilar lymph nodes was suggestive of reactive lymphadenopathy. She began adjuvant hormonal therapy with anastrozole 1 mg daily on 07/15/2017. She was seen for a scheduled visit on 05/08/2018. She reported significant increase in musculoskeletal pain as well as worsening fatigue and some cognitive dysfunction. At that point I did recommend that she put the anastrozole on hold. At her follow-up visit on 06/09/2018 her symptoms had improved, and at that point she began further adjuvant hormonal therapy with exemestane 25 mg daily. I had seen her for a follow-up visit on 09/09/2018. At that point she had developed an itchy skin eruption. I had suspected that at least some component was medication related, and I did have her stop taking both the exemestane and the alendronate. The skin eruption subsequently improved. However, on 09/22/2018 she was placed in the hospital for overnight observation after presenting to the emergency room with abdominal pain and rectal bleeding. Her CT abdomen/pelvis showed findings consistent with acute colitis or possibly diverticulitis. She was treated empirically with ciprofloxacin and metronidazole. She was discharged the following day, then admitted to [facility] later that same day after she developed nausea/vomiting and fever. She was discharged on 09/28/2018 to continue on the same antibiotic therapy. I had seen for a followup visit on 10/21/2018. At that point she was feeling better and she restarted exemestane 25 mg daily. Her other medical illnesses include hypertension, hyperlipidemia, degenerative arthritis, and chronic anxiety. She also has a history of chronic headache. She has history of smoking 1 pack of cigarettes daily for 15 years, but she quit smoking in 2011. INTERIM HISTORY: She had recently seen Dr. Mckinley for an enlarging lesion on her right upper back. Biopsy of the lesion on 01/11/2021 showed malignant melanoma, Ismael level IV with Breslow depth 1.8 mm. Biopsy of the pigmented lesion from the upper left arm on 01/18/2021 was consistent with intradermal melanocytic nevus, common blue nevus type. It was completely excised. She is seen for a scheduled followup visit. She complains that she has been very tired, though she continues to do all of her housework she also tries to walk every day. Her ECOG score is 1. Her appetite is not always good, but she does eat. She does not have fever, night sweats, or hot flashes. She occasionally has sinus drainage. She has not had sore mouth or throat. She says she has had a cough all summer. She is sometimes a little short of breath. She does not complain of chest pain. She has nausea occasionally, mainly when her blood sugar is messed up. She has no other GI complaints. She complains of having frequent bladder infection, which she is managing with Azo Gantrisin. She also complains that she keeps a yeast infection. She has chronic pain in the low back and lower extremities. She has been having headache pretty often. She sometimes gets lightheaded. She has residual neuropathy in her hands and in her legs and feet. She complains that her fingertips are numb and her fingers have been drawing up frequently. Medications: Amitriptyline HCl 1 Tablet (of 25 mg) Oral at bedtime, Cholecalciferol 1 Capsule (of 25 mg) Oral daily, Citalopram Hydrobromide 1 (20 mg) Tablet Oral at bedtime, Exemestane 1 Tablet (of 25 mg) Oral daily, Hydrocodone-Acetaminophen 1 - 2 (5-325 mg) Tablet Oral q 4 hours PRN, Lisinopril 1 (20 mg) Tablet Oral daily, Pantoprazole Sodium 1 (40 mg) Tablet, enteric coated Oral daily, Triamcinolone Acetonide 1 (0.1 %) Cream Topical PRN Allergies: Penicillins and Requip. Vital Signs: Performed on Jan 24, 2021 09:30 Height - 64.00 in Temperature - 97.5 F (LOW) Pulse - 74 /min Respiration - 16 /min BP - 118/64 mm(hg) O2 Sat - 99 % Pain - 0 Physical Examination: Constitutional - She has poor mobility, but she otherwise looks good generally, Eyes - Sclerae nonicteric. Conjunctivae clear, ENMT - No lesions noted in the oral cavity, Hematologic/Lymphatic - No cervical or clavicular adenopathy, Respiratory - Lungs are clear with good air movement bilaterally, Cardiovascular - Heart rhythm is regular. There is a II/ systolic murmur. There is no gallop or rub noted, Breasts - There is mild induration and mild tenderness in the right breast. The are no breast masses noted. There is no axillary adenopathy, Abdomen - Soft. Liver and spleen are not enlarged. There is no abdominal mass or ascites noted and there is no inguinal adenopathy, Extremities - No edema. Pedal pulses are palpable bilaterally, Integumentary - There are recent biopsy sites in the upper right back laterally and on the upper left arm, Neurologic - No focal neurologic deficits noted. Lab/Imaging: Test performed on Jan 20, 2021 13:05 Alkaline Phosphatase 93 International Units/L ALT (SGPT) 22 International Units/L AST (SGOT) 21 International Units/L Glucose 88 mg/dL BUN 21 mg/dL Creatinine 1.46 mg/dL Cr Clearance (Est) 43.53 mL/min Sodium 137 mmol/L Potassium 4.4 mmol/L Chloride 103 mmol/L CO2 23 mmol/L Calcium 9.7 mg/dL Protein, Total 7.0 g/dL Albumin 4.1 g/dL WBC 9.2 10^9/L RBC 4.28 10^12/L HGB 12.5 g/dL HCT 38.5 % MCV 90.0 fl MCH 29.2 pg MCHC 32.5 g/dL RDW 13.6 % Platelet Count 213 10^9/L MPV 8.8 fL Neutrophils (Gran) 3.65 10^9/L Lymphocytes 4.508 10^9/L Monocytes 0.552 10^9/L Eosinophils 0.368 10^9/L Basophils 0.092 10^9/L Problem List: 1. Grade 2/3 invasive ductal carcinoma of the right breast, ER/MO positive and HER-2/taran positive. By clinical evaluation her disease was at least stage IIB (T2, N1, MX). 2. Cutaneous melanoma involving the right upper back. 3. Her baseline DEXA scan on 04/24/2017 showed osteopenia with T score -1.6 in the lumbar spine. 4. Hypertension. 5. Hyperlipidemia. 6. Type 2 diabetes, diet controlled. 7. 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 9. Chronic headaches. 10. Chronic anxiety. Problems Addressed with this Encounter and Plan: 1. Patient with grade 2/3 invasive ductal carcinoma of the right breast, ER/MO positive and HER-2/taran positive. By clinical evaluation her disease was at least stage IIB (T2, N1, MX). She had a complete response to neoadjuvant chemotherapy with TCH-P. She was then given radiation to the right breast, completed in December 2016. She began adjuvant hormonal therapy with anastrozole in July 2017. As of June 2018 her adjuvant hormonal therapy was changed to exemestane 25 mg daily. During follow-up she has had some ongoing complaints with fatigue and musculoskeletal pain, though she has been able to tolerate the exemestane with acceptable toxicity. Her symptoms unfortunately have continued to gradually worsen. As she is at relatively high risk for recurrence of the breast cancer, she will be scheduled for restaging PET/CT. In the absence of any evidence of metastatic disease, she will continue her adjuvant hormonal therapy with exemestane 25 mg daily. She will tentatively be scheduled for follow-up visit in 6 months. 2. She was recently diagnosed with melanoma involving the upper back on the right side. Based on the Breslow depth of 1.8 mm, she is at least at intermediate risk. She will require wide excision and right axillary sentinel lymph node biopsy. Management may be complicated by the fact that she has had previous right axillary lymph node sampling for the breast cancer. I will discuss this with Dr. Theodore. 3. She has chronic musculoskeletal pain and she has some component of chronic neuropathy pain following her chemotherapy. It is managed adequately with her current medication. Signed By: Carmelo Kaye M.D. <<Signature on File>>
== END 2021-01-24 10:01 | disposition home or self-care (01) ==
LOC: ONCMED 10:01
PROVIDERS: Family Provider Physician Assistant Medical; PCP Physician Assistant Medical; Visit Provider Internal Medicine Medical Oncology
DX: C50.811 Malignant neoplasm of overlapping sites of right female breast (principal); Z17.0 Estrogen receptor positive status [ER+]; C79.2 Secondary malignant neoplasm of skin; M85.88 Other specified disorders of bone density and structure, other site; I10 Essential (primary) hypertension; E78.5 Hyperlipidemia, unspecified; E11.42 Type 2 diabetes mellitus with diabetic polyneuropathy; M47.9 Spondylosis, unspecified; G43.919 Migraine, unspecified, intractable, without status migrainosus; F41.9 Anxiety disorder, unspecified; Z79.811 Long term (current) use of aromatase inhibitors; Z92.21 Personal history of antineoplastic chemotherapy
CPT/HCPCS: 99215

== ENCOUNTER → 2021-01-27 09:12 | Outpatient (BNVA) | payer MEDICARE, SELFPAY | PROVIDERS: Family Provider Physician Assistant Medical; PCP Physician Assistant Medical; Referring Provider Dermatology; Visit Provider Surgery | DX: C43.9 Malignant melanoma of skin, unspecified (principal); Z11.52 Encounter for screening for COVID-19 | CPT/HCPCS: 87635 ==

== ENCOUNTER 2021-02-01 07:51 | Day surgery (SDC) | payer MEDICARE, SELFPAY ==
[2021-02-01] VITALS (7 sets, daily range): BP systolic 124–161; BP diastolic 60–98; PULSE 74–81; RESP 18–22; TEMP 36.6–36.7; O2SAT 93–100
--- NOTE | 2021-02-01 08:02 | NM_ITS ---
WS: [id number] NUCLEAR MEDICINE SENTINEL LYMPH NODE IMAGING HISTORY: Melanoma. COMPARISON: None available. TECHNIQUE: The patient was injected with 1.08 mCi of Technetium 99 ultra filtered sulfur colloid. Inj ection is intradermal in a periareolar location. Four aliquots are used. The sentinel lymph node is identified in the lateral projection and marked without difficulty. Unfort unately we were unable to identify this sentinel lymph node in the AP projection due to the blooming from the injection site. This lymph node is probably just deep to the injection site. NM/NM sentinel [place] inject [id number] IMPRESSION: Scenic lymph node identified and marked in the lateral projection. Notified Praneeth Theodore MD at 02/01/2021 11:29 AM.
[2021-02-01 08:29] LABS: Glucose Point of Care 98 mg/dL (70-110)
[2021-02-01] MEDS: sodium chloride 0.9% 1,000 ML 30 ML IV (08:30)
--- NOTE | 2021-02-01 08:39 | PC.NURSE ---
RIGHT POSTERIOR BACK SENTINEL NODE INJECTION DONE AT [address] MILO PAK. IMAGING TO FOLLOW.
--- NOTE | 2021-02-01 09:23 | W.PM.OPSUD ---
Surgery/Procedure H&P Update DATE OF PROCEDURE: February 01, 2021 DATE H&P PERFORMED: 01/27/21 H&P UPDATE INFORMATION: I have reviewed H&P completed within last 30 days, I have examined patient prior to procedure and No changes to prior documentation PREOP DIAGNOSIS: Melanoma PLANNED PROCEDURE: Operation Date: 02/01/21 11:45 Proposed Procedures p Sentinal Lymph Node Biopsy(Not Applicable) - Praneeth Theodore MD
--- NOTE | 2021-02-01 11:03 | ANES.PREANE2 ---
Pre-Anesthetic Assessment Pre-Anesthetic Assessment: Height/Weight: Height 1.55 m Temp Pulse Resp BP Pulse Ox 98.1 F 74 18 154/98 97 02/01/21 08:07 02/01/21 08:07 02/01/21 08:07 02/01/21 08:07 02/01/21 08:07 Preop Diagnosis: Melanoma Proposed Procedure: Operation Date: 02/01/21 11:45 Proposed Procedures p Sentinal Lymph Node Biopsy(Not Applicable) - Praneeth Theodore MD Familial anesthetic complications: None Was Beta Igor taken within 24 hours: N/A Was Clonidine taken within 24 hours: N/A Last intake: Intake Last Liquid Date 01/31/21 Last Liquid Time 22:00 Last Solid Date 01/31/21 Last Solid Time 22:00 Social: Social History: No alcohol and No tobacco Exam: Pre-Anes Outpt Exam: alert, oriented x 3, clear to auscultation bilaterally and regular rate & rhythm Airway: Cervical ROM: WNL MP: 3 Additional comments: missing CV/HEM: CV/HEM: HTN GI: GI: GERD Metabolic: Metabolic: DM and Morbid obesity Musc/skel: Comments: malignant melanoma Anesthetic Plan: ASA status: 3 Anesthesia: General Risk of > 500 ml blood loss (7ml/kg in children): No PFSH Anesthesia PFSH: Medical History (Updated 01/27/21 @ 09:04 by Praneeth Theodore MD) Anxiety Breast cancer Dyslipidemia GERD (gastroesophageal reflux disease) HTN (hypertension) Malignant melanoma Status post chemoradiation Surgical History (Updated 01/27/21 @ 09:02 by Praneeht Theodore MD) H/O lumpectomy History of colonoscopy Social History History of recent travel: No Data Anesthesia Other Labs: Laboratory Results - last 48 hr 02/01/21 08:18 POC Glucose 98 Cardiac Studies: No Data to Display
[2021-02-01] MEDS: lidocaine 1% INJ 20 mL INJECTION (12:20)
--- NOTE | 2021-02-01 13:47 | PM.OP ---
Operative Report Date of procedure: February 01, 2021 Pre-op Diagnosis: Malignant melanoma right upper back Post-op diagnosis: same Procedure Done: 1. Wide local excision of melanoma site right upper back 2. Intermediate closure of wound measuring 10 x 5 cm 3. [place] lymph node biopsy Pathology: 1. Wide local excision of melanoma site right upper back 2. [place] lymph node biopsy Surgeon: Praneeth Theodore Anesthesia: MAC Condition: stable Disposition: PACU Procedure: The patient was taken to the operating room and placed in lateral position under general anesthesia after IV antibiotic had been administered. The area around the melanoma biopsy site and the right axilla was prepped and draped in a sterile manner. 2 cm margins were marked on either side of the biopsy site and an elliptical 10 cm long transverse incision was made. The subcutaneous tissue was divided using electrocautery down to the muscular fascia over the latissimus dorsi muscle. The specimen was excised and sent to pathology with a short stitch placed superiorly and a long stitch placed laterally. The wound was irrigated with saline, hemostasis ensured and the defect measured 10 x 5 x 2.5 cm deep. Using electrocautery superior and inferior skin flaps were raised to a depth of 3 cm. A technetium sulfur colloid had been injected previously by the radiologist in the right upper back at the site of the melanoma. The subcutaneous tissue and clavipectoral fascia was divided with electrocautery through the lateral aspect of the existing wound and gentle dissection was performed until the radioactive lymph nodes were identified with the gamma probe. Using electrocautery the lymph nodes were dissected free. Examination of the axilla did not reveal any other lymph nodes. The clavipectoral and subcutaneous tissue was approximated using running 3-0 Vicryl suture.
[2021-02-01] MEDS: HYDROcodone-acetaminophen 5-325 mg Tablet 1 TAB PO (14:11)
--- NOTE | 2021-02-01 17:00 | ANE.PACU2 ---
Inpatient post-anesthesia follow up: Airway intact: Yes Vital signs: Temperature 98.0 F Pulse Rate 74 Respiratory Rate 18 Blood Pressure 155/67 Pulse Oximetry 98 Oxygen Delivery Me thod Room Air Oxygen Flow Rate 5 Fraction of Inspir ed Oxygen Hydration adequate: Yes Nausea and vomiting: No Pain level: 2 Mental status: Baseline
== END 2021-02-01 13:50 | disposition home or self-care (01) ==
PROVIDERS: PCP Physician Assistant Medical; Visit Provider Surgery
PROC: (CPT 11606; principal; 2021-02-01 11:45)
DX: C43.59 Malignant melanoma of other part of trunk (principal); I10 Essential (primary) hypertension; K21.9 Gastro-esophageal reflux disease without esophagitis; E11.9 Type 2 diabetes mellitus without complications; E66.01 Morbid (severe) obesity due to excess calories; F41.9 Anxiety disorder, unspecified; Z85.3 Personal history of malignant neoplasm of breast; E78.5 Hyperlipidemia, unspecified; Z92.3 Personal history of irradiation
CPT/HCPCS: 11606; 12034; 38500; 36416; 38792; 82962; 88304; 96365; A9541; J0690; J2704; J3010; J3490; J7030

== ENCOUNTER 2021-07-18 09:49 | Outpatient (CLI) | payer MEDICARE, SELFPAY ==
--- NOTE | 2021-07-18 10:01 | MM_ITS ---
WS: [id number] BILATERAL 3D TOMOSYNTHESIS DIGITAL DIAGNOSTIC MAMMOGRAPHY WITH CAD CLINICAL INFORMATION: HX OF BREAST CA COMPARISON: May 24, 2020 TECHNIQUE: Bilateral CC, MLO, and ML views. FINDINGS: Scattered fibroglandular densities bilaterally. Punctate and lucent centered calcifications. Vascular calcifications. Volume loss RIGHT breast with Parenchymal fibrosis from prior lumpectomy is unchange d. Treatment-related skin thickening RIGHT breast is unchanged. Increasing ovoid density inner RIGHT breast measuring 5 mm best seen on the cc view. Recommend RIGHT diagnostic 3-D Tomosynthesis and ultrasound in further evaluation. LEFT breast is unchanged and unremarkable. MM/[place] [id number] IMPRESSION: BI-RADS: 0-Incomplete: Need additional imaging evaluation FOLLOW UP: Need Additional Imaging Recommend RIGHT diagnostic 3-D Tomosynthesis and ultrasound in further evaluati on.
== END 2021-07-18 09:50 | disposition home or self-care (01) ==
PROVIDERS: PCP Physician Assistant Medical; Visit Provider Internal Medicine Medical Oncology
DX: Z85.3 Personal history of malignant neoplasm of breast (principal)
CPT/HCPCS: 77062

== ENCOUNTER 2021-07-28 09:28 | Outpatient (CLI) | payer MEDICARE, SELFPAY ==
--- NOTE | 2021-07-28 09:43 | MM_ITS ---
WS: [id number] ADDITIONAL VIEWS RIGHT MAMMOGRAM, 3-D spots. RIGHT BREAST ULTRASOUND HISTORY: HX OF BREAST CA COMPARISON: 07/18/2021, 05/24/2020 RIGHT MAMMOGRAM: Spot compression views and true ML. The asymmetry described in the medial RIGHT breast minimally persists with additional imaging and spo t compression views. RIGHT BREAST ULTRASOUND 2-D and color Doppler imaging submitted. On the ultrasound directed to the RIGHT breast at 2:00 there is a very small hypoechoic mass with no increased vascularity measuring 6 x 7 x 7 mm. This may be residual treated tumor that was originally diagnosed. Small area of recurrence not excluded. This may or may not correspond to the mammographic abnormality. MM/[place] [id number] IMPRESSION: BI-RADS: 3-Probably Benign FOLLOW UP: 6 Month Follow-up There is a small nodule in the medial RIGHT breast at 2:00, 1 cm from the nippl e. This may or may not correspond to the new mammographic abnormality. The mamm ographic abnormality does not persist as a discrete nodule. The nodule seen by ultrasound may be residual treated neoplasm. 6 month follow-up versus ultrasoun d-guided biopsy.
== END 2021-07-28 09:29 | disposition home or self-care (01) ==
LOC: RAD 09:30
PROVIDERS: PCP Physician Assistant Medical; Visit Provider Internal Medicine Medical Oncology
DX: Z85.3 Personal history of malignant neoplasm of breast (principal); N63.12 Unspecified lump in the right breast, upper inner quadrant
CPT/HCPCS: 76642; 77061

== ENCOUNTER 2021-08-14 11:32 | Outpatient (CLI) | payer MEDICARE, SELFPAY ==
[2021-08-14 12:20] LABS: Basophils # 0.1 10^3/uL (0.0-0.1); Basophils % 0.9 %; Eosinophils # 0.2 10^3/uL (0.0-0.8); Eosinophils % 2.7 %; Hematocrit 40.8 % (37.0-47.0); Hemoglobin 13.5 g/dL (11.5-15.3); Lymphocytes % 49.5 %; Mean Corpuscular HGB Conc 33.1 g/dL (30.0-36.0); Mean Corpuscular Hemoglobin 29.3 pg (28.0-34.0); Mean Corpuscular Volume 88.5 fl (81-99); Mean Platelet Volume 9.1 fL (7.4-10.4); Monocytes # 0.5 10^3/uL (0.2-0.9); Monocytes % 6.5 %; Neutrophils # 3.27 10^3/uL (1.8-7.7); Neutrophils % 40.2 %; Nucleated Red Blood Cells % 0 %; Platelet Count 219 10^3/cmm (130-400); Red Blood Count 4.61 10^6/uL (4.1-5.3); Red Cell Distribution Width 13.2 % (12.1-15.1); White Blood Count 8.1 10^3/uL (4.0-10.0)
[2021-08-14 12:44] LABS: Alanine Aminotransferase 24 U/L (0-33); Albumin Level 4.4 g/dL (3.5-5.2); Alkaline Phosphatase 98 IU/L (35-105); Anion Gap 16.4 (5-19); Aspartate Amino Transferase 21 U/L (0-32); Blood Urea Nitrogen 17 mg/dL (8-23); Calcium 9.9 mg/dL (8.5-10.5); Carbon Dioxide 21 mmol/L (22-29); Chloride 104 mmol/L (98-107); Globulin 3.2 g/dL (1.3-4.6); Glucose 106 mg/dL (65-115); Osmolality Calculated 286 mOsm/kg (285-295); Potassium 4.4 mmol/L (3.5-5.1); Sodium 137 mmol/L (136-145); Total Bilirubin 0.4 mg/dL (0.15-1.2); Total Protein 7.6 g/dL (6.6-8.7)
--- NOTE | 2021-08-15 06:37 | ONC FU_ITS ---
Dr. Kaye Patient Follow-Up Note Patient: Florencia Stearns I Unit #: [id number]: 1950 Dicatated By: Carmelo Kaye M.D.Date of Visit:Aug 14, 2021 Onc Med Follow-up/Prog Note Chief Complaint: Breast cancer/cutaneous melanoma. History of Present Illness: This is a 70 year-old woman with grade 2 invasive ductal carcinoma of the right breast, by clinical evaluation stage at least IIB (T2, N1, M0), ER/NJ positive and HER-2/taran positive. 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 She had presented with a palpable lump in her right breast. She was evaluated with diagnostic mammogram on 02/17/2016. It showed a dense irregular mass in the central right breast at the 12:00 axis. It measured 4.4 x 3.3 cm. An enlarged right axillary lymph node measured 2.4 cm. By ultrasound the breast mass measured 3.0 x 3.7 cm. Ultrasound also showed a single axillary lymph node which measured 1.8 cm. The appearance was highly suggestive of malignancy. Needle core biopsy of the breast mass on 02/24/2016 showed grade 2/3 invasive ductal carcinoma with a background of intermediate grade DCIS. The breast prognostic profile showed high Ki-67 at 36%. ER was positive at 55% with NJ positive at 8%. The HER-2/taran was also positive, 3+ by IHC with 15.0 HER-2 copies/cell. The amplification ratio by FISH was 4.2. I had seen her initially on 03/08/2016. She then underwent neoadjuvant chemotherapy with TCH-P, cycle 1 beginning on 03/22/2016. Her treatment was complicated by fatigue, neutropenia, and peripheral neuropathy. She did require Neulasta prophylaxis beginning with cycle 2. Following the 4th cycle her neuropathy worsen to grade 3, and with cycles 5 and 6 her treatment was limited to Herceptin and Perjeta, with omission of the Taxotere and carboplatin. During this time she had seen Dr. Skelton for repeat biopsies of the right breast. Pathology was benign, consistent with complete response. She then began radiation to the right breast on 10/22/2016. She completed treatment on 12/07/2016 to a total dose of 6040 cGy. Her treatment also included the right posterior axilla to a dose of 840 cGy and the right supraclavicular region to a dose of 5040 cGy. She continued the Herceptin infusions at 3-week intervals. She received her final cycle of treatment on 03/18/2017. Overall, she tolerated it well. Her DEXA scan on 04/24/2017 showed a T score of -1.6 in the lumbar spine, -1.0 in the left femoral neck, and -0.9 in the right femoral neck. CT pulmonary angiogram on 04/24/2017 showed no evidence of pulmonary embolism. A pleural-based right anterior upper lobe mass measuring 1.5 x 2.1 cm was felt to be consistent with infectious or inflammatory process, though metastatic disease was noted to be an additional consideration. There was right hilar lymphadenopathy measuring 1.7 cm. A 1.1 cm right hepatic low-attenuation lesion was felt to likely represent an incidental cyst or hemangioma. She had further evaluation with PET/CT on 05/13/2017. It was a negative exam with resolution of the right upper lobe pulmonary lesion and no sites of adenopathy or other metastatic disease identified. Minimal FDG uptake involving subcentimeter hilar lymph nodes was suggestive of reactive lymphadenopathy. She began adjuvant hormonal therapy with anastrozole 1 mg daily on 07/15/2017. She was seen for a scheduled visit on 05/08/2018. She reported significant increase in musculoskeletal pain as well as worsening fatigue and some cognitive dysfunction, and the anastrozole was put on hold. At her follow-up visit on 06/09/2018 her symptoms had improved, and at that point she began further adjuvant hormonal therapy with exemestane 25 mg daily. I had seen her for a follow-up visit on 09/09/2018. At that point she had developed an itchy skin eruption. I had suspected that at least some component was medication related, and I did have her stop taking both the exemestane and the alendronate. The skin eruption subsequently improved. However, on 09/22/2018 she was placed in the hospital for overnight observation after presenting to the emergency room with abdominal pain and rectal bleeding. Her CT abdomen/pelvis showed findings consistent with acute colitis or possibly diverticulitis. She was treated empirically with ciprofloxacin and metronidazole. She was discharged the following day, then admitted to [facility] later that same day after she developed nausea/vomiting and fever. She was discharged on 09/28/2018 to continue on the same antibiotic therapy. I had seen for a followup visit on 10/21/2018. At that point she was feeling better and she restarted exemestane 25 mg daily. In January [address] Mckinley for an enlarging lesion on her right upper back. Biopsy of the lesion on 01/11/2021 showed malignant melanoma, Ismael level IV with Breslow depth 1.8 mm. Biopsy of the pigmented lesion from the upper left arm on 01/18/2021 was consistent with intradermal melanocytic nevus, common blue nevus type. It was completely excised. On 02/01/2021 she underwent wide excision of the melanoma and right upper axillary sentinel lymph node biopsy. Pathology showed no residual melanoma in the wide excision and there was no evidence of melanoma or other malignancy in the right upper axillary sentinel lymph node. Her other medical illnesses include hypertension, hyperlipidemia, degenerative arthritis, and chronic anxiety. She also has a history of chronic headache. She has history of smoking 1 pack of cigarettes daily for 15 years, but she quit smoking in 2011. INTERIM HISTORY: She is seen for a follow-up visit. She complains that her energy is not very good. She still tires out real fast, and she also complains of being short of breath with activity. Her ECOG score is 1. She has good appetite. She has no fever, night sweats, or hot flashes. She has sinus drainage. She does not complain of sore mouth or throat. She has had a persistent cough for ever. She has not been having chest pain. Her acid reflux is adequately managed with medication. She has no other GI complaints. Bladder function remains adequate, though she sometimes has incontinence. She continues to have musculoskeletal pain. The most significant is in her knees and feet, and mainly when she is in bed at night. She also has pain in the back of her neck, in the upper and lower back. She also reports having pain her right groin area and she has somewhat limited movement at the right hip joint. She does not complain of headache. She sometimes has dizziness. She sometimes has numbness on the ends of her fingers. Medications: Amitriptyline HCl 1 Tablet (of 25 mg) Oral at bedtime, Cholecalciferol 1 Capsule (of 25 mg) Oral daily, Citalopram Hydrobromide 1 (20 mg) Tablet Oral daily, Exemestane 1 Tablet (of 25 mg) Oral daily, Hydrocodone-Acetaminophen 1 - 2 (5-325 mg) Tablet Oral q 4 hours PRN, Lisinopril 1 (20 mg) Tablet Oral daily, Lovastatin 1 Tablet (of 10 mg) Oral daily, Pantoprazole Sodium 1 (40 mg) Tablet, enteric coated Oral daily, Triamcinolone Acetonide 1 (0.1 %) Cream Topical PRN Allergies: Penicillins and Requip. Vital Signs: Performed on Aug 14, 2021 14:06 Height - 64.00 in Weight - 163.0 lbs (LOW) BSA - 1.79 sq.m BMI - 27.98 Temperature - 97.6 F (LOW) Pulse - 85 /min Respiration - 16 /min BP - 129/71 mm(hg) O2 Sat - 99 % Pain - 0 Fatigue - 9 Physical Examination: Constitutional - She looks pretty good generally, though she has limited mobility, Eyes - Sclerae nonicteric. Conjunctivae clear, ENMT - Mouth is dry. There are no lesions noted in the oral cavity, Hematologic/Lymphatic - No cervical, clavicular, or axillary adenopathy, Respiratory - Lungs are clear with good air movement bilaterally, Cardiovascular - Heart rhythm is regular. There is a II/ systolic murmur. There is no gallop or rub noted, Abdomen - Soft. Liver and spleen are not enlarged. There is no abdominal mass or ascites noted and there is no inguinal adenopathy, Extremities - No edema, Neurologic - No focal neurologic deficits noted. Lab/Imaging: Test performed on Aug 14, 2021 12:13 Sodium 137 mmol/L Potassium 4.4 mmol/L Chloride 104 mmol/L CO2 21 mmol/L Anion Gap 16.4 BUN 17 mg/dL Creatinine 1.2 mg/dL Cr Clearance (Est) 50.19 mL/min Glucose 106 mg/dL Osmolality - Calculated 286 mOsm/kg Calcium 9.9 mg/dL Protein, Total 7.6 g/dL Albumin 4.4 g/dL Globulin 3.2 g/dL Bilirubin, Total 0.4 mg/dL ALT (SGPT) 24 U/L AST (SGOT) 21 U/L Alkaline Phosphatase 98 IU/L WBC 8.1 10 3/uL RBC 4.61 10 6/uL HGB 13.5 g/dL HCT 40.8 % MCV 88.5 fl MCH 29.3 pg MCHC 33.1 g/dL RDW 13.2 % Platelet Count 219 10 3/cmm MPV 9.1 fL Neutrophils 3.27 10 3/uL Lymphocytes 4.0 10 3/uL Monocytes 0.5 10 3/uL Eosinophils 0.2 10 3/uL Basophils 0.1 10 3/uL Neutrophil % 40.2 % Lymphocyte % 49.5 % Monocyte % 6.5 % Eosinophil % 2.7 % Basophils % 0.9 % NRBC % 0 % Problem List: 1. Grade 2/3 invasive ductal carcinoma of the right breast, ER/NJ positive and HER-2/taran positive. By clinical evaluation her disease was at least stage IIB (T2, N1, MX). 2. 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 3. Her baseline DEXA scan on 04/24/2017 showed osteopenia with T score -1.6 in the lumbar spine. 4. Hypertension. 5. Hyperlipidemia. 6. Type 2 diabetes, diet controlled. 7. 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 9. Chronic headaches. 10. Chronic anxiety. Problems Addressed with this Encounter and Plan: 1. Patient with grade 2/3 invasive ductal carcinoma of the right breast, ER/NJ positive and HER-2/taran positive. By clinical evaluation her disease was at least stage IIB (T2, N1, MX). She had a complete response to neoadjuvant chemotherapy with TCH-P. She was then given radiation to the right breast, completed in December 2016. She began adjuvant hormonal therapy with anastrozole in July 2017. As of June 2018 her adjuvant hormonal therapy was changed to exemestane 25 mg daily. During follow-up she has had some ongoing complaints with fatigue and musculoskeletal pain, though she has been able to tolerate the exemestane with acceptable toxicity. Her restaging PET/CT in February 2021 showed uptake in mediastinal lymph nodes, felt to be most likely reactive. There was otherwise no evidence of malignancy. In the absence of any evidence of metastatic disease, she will continue adjuvant hormonal therapy with exemestane 25 mg daily. However, with her PET/CT showing uptake in mediastinal lymph nodes and with her complaints of increased shortness of breath, she will be scheduled for a CT pulmonary angiogram. She will have further evaluation as indicated. I will tentatively plan a follow-up visit in 6 months. In the meantime, she has now had 4 years of adjuvant hormonal therapy, I am going to look into the possibility of getting a breast cancer index study. 2. In January 2021 she was found to have a melanoma involving the upper back on the right side. The initial biopsy showed a Breslow depth of 1.8 mm. On 02/01/2021 she underwent wide excision with right upper axillary sentinel lymph node biopsy. There was no residual melanoma identified in the wide excision and there was no involvement in the right upper axillary sentinel lymph node, thus stage IB (pT2a, pN0, M0). There is no further treatment indicated. She continues on expectant management. 3. She has chronic musculoskeletal pain and she has some component of chronic neuropathy pain following her chemotherapy. She continues symptomatic management. Signed By: Carmelo Kaye M.D. <<Signature on File>>
== END 2021-08-14 11:33 | disposition home or self-care (01) ==
PROVIDERS: PCP Nurse Practitioner Family; Visit Provider Internal Medicine Medical Oncology
DX: C50.911 Malignant neoplasm of unspecified site of right female breast (principal); Z17.0 Estrogen receptor positive status [ER+]; Z92.3 Personal history of irradiation; Z79.811 Long term (current) use of aromatase inhibitors; R59.0 Localized enlarged lymph nodes; C43.59 Malignant melanoma of other part of trunk; G62.0 Drug-induced polyneuropathy; T45.1X5A Adverse effect of antineoplastic and immunosuppressive drugs, initial encounter
CPT/HCPCS: 36415; 80053; 85025; 99214

== ENCOUNTER 2021-08-17 08:11 | Outpatient (CLI) | payer MEDICARE, SELFPAY ==
--- NOTE | 2021-08-17 08:21 | CT_ITS ---
WS: [id number] CTA OF THE CHEST WITH PULMONARY EMBOLISM PROTOCOL TECHNIQUE: High-resolution contrast enhanced CTA of the chest with coronal and sagittal reformatted i mages with pulmonary embolism protocol. MIP images are also reviewed. CLINICAL INFORMATION: BREAST CANCER/MELANOMA/SHORTNESS OF BREATH COMPARISON: CTA 12 20,017 DLP: 546.[address] scans at [facility] use at least one of these dose optimization techniques: automated e xposure control; mA and/or kV adjustment per patient size (includes targeted exams where dose is matc hed to clinical indication); or iterative reconstruction. FINDINGS: Proximal main pulmonary arteries are normal. Normal segmental and subsegmental pulmonary arteries. No evidence of pulmonary embolus. Aortic calcification. Normal caliber thoracic aorta. Numerous mediastinal and peribronchial lymph nod es not pathologically enlarged. No axillary lymphadenopathy. Moderate esophageal hiatal hernia. Adrenal glands are normal. LEFT renal cyst measuring 3.6 cm. Hyper trophic changes thoracic spine. CT/CT angio chest PE protcl [id number] IMPRESSION: 1. No evidence of pulmonary embolus. 2. Mild aortic calcification. Normal caliber thoracic aorta. 3. Chronic emphysematous changes. No acute pulmonary infiltrates. 4. Partially visualized LEFT renal cyst measuring 3.6 cm. 5. Moderate esophageal hiatal hernia.
[2021-08-17] MEDS: iodixanol 320 mg/mL 100mL Btl IV (08:26)
== END 2021-08-17 08:12 | disposition home or self-care (01) ==
PROVIDERS: PCP Nurse Practitioner Family; Visit Provider Internal Medicine Medical Oncology
DX: C50.111 Malignant neoplasm of central portion of right female breast (principal); C43.59 Malignant melanoma of other part of trunk; R06.02 Shortness of breath; I70.0 Atherosclerosis of aorta; K44.9 Diaphragmatic hernia without obstruction or gangrene; N28.1 Cyst of kidney, acquired
CPT/HCPCS: 71275

== ENCOUNTER 2022-02-15 11:17 | Outpatient (CLI) | payer MEDICARE, SELFPAY ==
[2022-02-15 12:34] LABS: Basophils # 0.1 10^3/uL (0.0-0.1); Basophils % 1.1 %; Eosinophils # 0.3 10^3/uL (0.0-0.8); Eosinophils % 3.5 %; Hematocrit 41.1 % (37.0-47.0); Hemoglobin 13.6 g/dL (11.5-15.3); Lymphocytes # 4.2 10^3/uL (0.8-4.8); Lymphocytes % 50.8 %; Mean Corpuscular HGB Conc 33.1 g/dL (30.0-36.0); Mean Corpuscular Hemoglobin 29.2 pg (28.0-34.0); Mean Corpuscular Volume 88.4 fl (81-99); Mean Platelet Volume 8.8 fL (7.4-10.4); Monocytes # 0.5 10^3/uL (0.2-0.9); Monocytes % 6.2 %; Neutrophils # 3.11 10^3/uL (1.8-7.7); Nucleated Red Blood Cells % 0 %; Platelet Count 204 10^3/cmm (130-400); Red Blood Count 4.65 10^6/uL (4.1-5.3); Red Cell Distribution Width 13.4 % (12.1-15.1); White Blood Count 8.2 10^3/uL (4.0-10.0)
[2022-02-15 12:50] LABS: Alanine Aminotransferase 22 U/L (0-33); Albumin Level 4.3 g/dL (3.5-5.2); Alkaline Phosphatase 106 U/L (35-105); Anion Gap 17.5 (5-19); Aspartate Amino Transferase 23 U/L (0-32); Blood Urea Nitrogen 17 mg/dL (8-23); Calcium 9.7 mg/dL (8.5-10.5); Carbon Dioxide 22 mmol/L (22-29); Chloride 101 mmol/L (98-107); Globulin 3.1 g/dL (1.3-4.6); Glucose 97 mg/dL (65-115); Lactate Dehydrogenase 234 U/L (135-214); Osmolality Calculated 283 mOsm/kg (285-295); Potassium 4.5 mmol/L (3.5-5.1); Sodium 136 mmol/L (136-145); Total Bilirubin 0.7 mg/dL (0.15-1.2); Total Protein 7.4 g/dL (6.6-8.7)
== END 2022-02-15 11:18 | disposition home or self-care (01) ==
LOC: LAB 11:23
PROVIDERS: PCP Nurse Practitioner Family; Visit Provider Internal Medicine Medical Oncology
DX: C43.59 Malignant melanoma of other part of trunk (principal); C50.111 Malignant neoplasm of central portion of right female breast
CPT/HCPCS: 36415; 80053; 83615; 85025

== ENCOUNTER 2022-03-05 09:59 | Outpatient (CLI) | payer MEDICARE, SELFPAY ==
--- NOTE | 2022-03-05 | US_ITS ---
DIAGNOSTIC RIGHT DIGITAL TOMOSYNTHESIS MAMMOGRAPHY WITH CAD. RIGHT breast ultrasound HISTORY: hx of breast ca/ 6 mo f/u COMPARISON: 07/28/2021, 07/18/2021 and 05/24/2020. Technique: CC, MLO and ML views. Breast composition: There are scattered areas of fibroglandular density. Dystrophic calcifications and vascular calcifications in the anterior to mid breast. Seen on the MLO projection is a 5 mm nodule central to the nipple and just medial. This corresponds to the ultrasound nodule of 07/28/2021. Ultrasound will be performed. RIGHT breast ultrasound, limited. Hypoechoic mass with calcification and shadowing at 2:00, 1 cm from the nipple. Nodule measures 7 x 7 x 6 mm. There has been a change in the extent of shadowing. This all may be related to the calcification. IMPRESSION: BI-RADS: 4-Suspicious Finding-Biopsy Should Be Considered FOLLOW UP: Biopsy Recommended Ultrasound-guided biopsy recommended of the nodule RIGHT breast at 2:00, 1 cm from the nipple. Although this nodule has not increased in size since 07/28/2021 there is more shadowing and adjacent calcifications. There also has been no improvement. Consider biopsy at this time MTDD
--- NOTE | 2022-03-05 10:07 | MM_ITS ---
WS: [id number] DIAGNOSTIC RIGHT DIGITAL TOMOSYNTHESIS MAMMOGRAPHY WITH CAD. RIGHT breast ultrasound HISTORY: hx of breast ca/ 6 mo f/u COMPARISON: 07/28/2021, 07/18/2021 and 05/24/2020. Technique: CC, MLO and ML views. Breast composition: There are scattered areas of fibroglandular density. Dystrophic calcifications a nd vascular calcifications in the anterior to mid breast. Seen on the MLO projection is a 5 mm nodule central to the nipple and just medial. This corresponds to the ultrasound nodule of 07/28/2021. Ultra sound will be performed. RIGHT breast ultrasound, limited. Hypoechoic mass with calcification and shadowing at 2:00, 1 cm from the nipple. Nodule measures 7 x 7 x 6 mm. There has been a change in the extent of shadowing. This all may be related to the calcifica tion. MM/[place] [id number] IMPRESSION: BI-RADS: 4-Suspicious Finding-Biopsy Should Be Considered FOLLOW UP: Biopsy Recommended Ultrasound-guided biopsy recommended of the nodule RIGHT breast at 2:00, 1 cm f rom the nipple. Although this nodule has not increased in size since 07/28/2021 there is more shadowing and adjacent calcifications. There also has been no im provement. Consider biopsy at this time.
== END 2022-03-05 10:00 | disposition home or self-care (01) ==
PROVIDERS: PCP Nurse Practitioner Family; Visit Provider Internal Medicine Medical Oncology
DX: Z85.3 Personal history of malignant neoplasm of breast (principal); N63.12 Unspecified lump in the right breast, upper inner quadrant
CPT/HCPCS: 76642; 77061

== ENCOUNTER 2022-03-28 12:17 | Outpatient (CLI) | payer MEDICARE, SELFPAY ==
--- NOTE | 2022-03-28 12:21 | US_ITS ---
WS: [id number] ULTRASOUND-GUIDED RIGHT BREAST BIOPSY CLINICAL INFORMATION: abnormal mammogram and ultrasound COMPARISON: None. FINDINGS: The procedure including risks, benefits, and complications were discussed with the patient who agreed to proceed. Using sterile technique patient was prepped and draped in the usual sterile fashion. Aft er 1% lidocaine utilizing real-time ultrasound guidance 6 14-gauge cores were obtained of the RIGHT b reast lesion at the 2 o'clock position 1 cm from the nipple. Subsequently a titanium clip was placed in the biopsy cavity. No immediate complications. Pathology demonstrates A. Breast, right, 2 o'clock, 1 cm from nipple, ultrasound-guided biopsy: - Benign breast tissue with stromal sclerosis and microcalcifications. - No malignancy identified. US/[place] [id number] IMPRESSION: 1. Uncomplicated ultrasound-guided RIGHT breast biopsy. 2. The pathology demonstrates benign breast tissue with stromal sclerosis and microcalcifications. No malignancy identified. 3. Recommend 6 month RIGHT breast diagnostic mammography and ultrasound to con firm stability postbiopsy BI-RADS: 2-Benign FOLLOW UP: 6 Month Follow-up
== END 2022-03-28 12:18 | disposition home or self-care (01) ==
LOC: RAD 12:18
PROVIDERS: PCP Nurse Practitioner Family; Visit Provider Internal Medicine Medical Oncology
DX: R92.8 Other abnormal and inconclusive findings on diagnostic imaging of breast (principal); N63.12 Unspecified lump in the right breast, upper inner quadrant; R92.1 Mammographic calcification found on diagnostic imaging of breast
CPT/HCPCS: 19083; 88305

== ENCOUNTER 2022-04-09 14:54 | Oncology outpatient (recurring) (ONCR) | payer MEDICARE, SELFPAY | END 2022-05-05 23:59 | disposition home or self-care (01) | LOC: ONCMED 14:55 | PROVIDERS: PCP Nurse Practitioner Family; Visit Provider Internal Medicine Medical Oncology | DX: C50.111 Malignant neoplasm of central portion of right female breast (principal); Z17.0 Estrogen receptor positive status [ER+]; R53.83 Other fatigue; M25.59 Pain in other specified joint; G62.0 Drug-induced polyneuropathy; T45.1X5A Adverse effect of antineoplastic and immunosuppressive drugs, initial encounter; D71 Functional disorders of polymorphonuclear neutrophils; Z79.818 Long term (current) use of other agents affecting estrogen receptors and estrogen levels; Z79.899 Other long term (current) drug therapy; Z85.820 Personal history of malignant melanoma of skin; Z92.21 Personal history of antineoplastic chemotherapy; Z92.3 Personal history of irradiation; Z87.891 Personal history of nicotine dependence | CPT/HCPCS: 99214 ==

== ENCOUNTER 2022-08-08 11:14 | Oncology outpatient (recurring) (ONCR) | payer MEDICARE, MEDICAID, SELFPAY ==
[2022-08-08 13:07] LABS: Basophils # 0.1 10^3/uL (0.0-0.1); Basophils % 0.7 %; Eosinophils # 0.2 10^3/uL (0.0-0.8); Eosinophils % 2.9 %; Hematocrit 38.3 % (37.0-47.0); Hemoglobin 12.5 g/dL (11.5-15.3); Lymphocytes # 4.6 10^3/uL (0.8-4.8); Lymphocytes % 54.9 %; Mean Corpuscular HGB Conc 32.6 g/dL (30.0-36.0); Mean Corpuscular Hemoglobin 28.7 pg (28.0-34.0); Mean Corpuscular Volume 87.8 fl (81-99); Monocytes # 0.7 10^3/uL (0.2-0.9); Monocytes % 8.3 %; Neutrophils # 2.75 10^3/uL (1.8-7.7); Neutrophils % 32.8 %; Nucleated Red Blood Cells % 0 %; Platelet Count 208 10^3/cmm (130-400); Red Blood Count 4.36 10^6/uL (4.1-5.3); Red Cell Distribution Width 13.3 % (12.1-15.1); White Blood Count 8.4 10^3/uL (4.0-10.0)
[2022-08-08 13:28] LABS: Alanine Aminotransferase 19 U/L (0-33); Albumin Level 4.2 g/dL (3.5-5.2); Alkaline Phosphatase 93 U/L (35-105); Anion Gap 15.3 (5-19); Aspartate Amino Transferase 21 U/L (0-32); Blood Urea Nitrogen 21 mg/dL (8-23); Calcium 9.1 mg/dL (8.5-10.5); Carbon Dioxide 23 mmol/L (22-29); Chloride 104 mmol/L (98-107); Globulin 2.7 g/dL (1.3-4.6); Glucose 88 mg/dL (65-115); Lactate Dehydrogenase 229 U/L (135-214); Osmolality Calculated 288 mOsm/kg (285-295); Potassium 4.3 mmol/L (3.5-5.1); Sodium 138 mmol/L (136-145); Total Bilirubin 0.5 mg/dL (0.15-1.2); Total Protein 6.9 g/dL (6.6-8.7)
== END 2022-09-02 23:59 | disposition home or self-care (01) ==
PROVIDERS: PCP Registered Nurse; Visit Provider Nurse Practitioner Family
DX: C50.111 Malignant neoplasm of central portion of right female breast (principal); Z17.0 Estrogen receptor positive status [ER+]; R53.0 Neoplastic (malignant) related fatigue; M25.59 Pain in other specified joint; G62.0 Drug-induced polyneuropathy; T45.1X5A Adverse effect of antineoplastic and immunosuppressive drugs, initial encounter; Z79.818 Long term (current) use of other agents affecting estrogen receptors and estrogen levels; Z79.899 Other long term (current) drug therapy; Z85.820 Personal history of malignant melanoma of skin; Z92.21 Personal history of antineoplastic chemotherapy; Z92.3 Personal history of irradiation; Z87.891 Personal history of nicotine dependence
CPT/HCPCS: 36415; 80053; 83615; 85025; 99213; 99214

== ENCOUNTER 2022-08-23 12:12 | Outpatient (CLI) | payer MEDICARE, MEDICAID, SELFPAY ==
--- NOTE | 2022-08-23 13:30 | MM_ITS ---
WS: [id number] BILATERAL 3D TOMOSYNTHESIS DIGITAL DIAGNOSTIC MAMMOGRAPHY WITH CAD CLINICAL INFORMATION: history of breast cancer HISTORY: Six-month follow-up biopsy. COMPARISON: March 28, 2022 TECHNIQUE: Bilateral CC, MLO, and ML views. FINDINGS: New biopsy clip central RIGHT breast. Previously described small 5 mm nodule appears stable. A few in creased calcifications in this area. This was previously biopsied with no malignancy identified. Scattered fibroglandular densities bilaterally. Punctate and lucent centered calcifications. Vascular calcifications. Volume loss RIGHT breast with parenchymal fibrosis from prior lumpectomy is unchanged. Treatment-related skin thickening RIGHT breast is unchanged in appearance. Vascular calcifications LEFT breast. A few incidental punctate calcifications LEFT breast. MM/[place] [id number] IMPRESSION: BI-RADS: 0-Incomplete: Need additional imaging evaluation FOLLOW UP: Need Additional Imaging Recommend RIGHT breast ultrasound to confirm stability of previously biopsied l esion. This lesion was better demonstrated with ultrasound on the prior studies
== END 2022-08-23 12:13 | disposition home or self-care (01) ==
LOC: RAD 12:14
PROVIDERS: PCP Registered Nurse; Visit Provider Nurse Practitioner Family
DX: Z85.3 Personal history of malignant neoplasm of breast (principal)
CPT/HCPCS: 77062; G0279

== ENCOUNTER 2022-09-06 11:46 | Outpatient (CLI) | payer MEDICARE, MEDICAID, SELFPAY ==
--- NOTE | 2022-09-06 11:51 | US_ITS ---
WS: [id number] ULTRASOUND BREAST RIGHT TECHNIQUE: Ultrasound right breast focused area of concern. CLINICAL INFORMATION: ordered for 08/23/22 mammo COMPARISON: 08/23/2022 and 03/28/2022. March 05, 2022. FINDINGS: Again seen is the dense shadowing hypoechoic mass with calcifications at the 2:00 position 1 cm from the nipple. This is not significantly changed in appearance compared to previous. Biopsy clip is visu alized. Previous biopsy demonstrated benign breast tissue. Recommend return to annual diagnostic mamm ography. US/US breast RT limited* [id number] IMPRESSION: BI-RADS 2 benign Return to annual diagnostic mammography
== END 2022-09-06 11:47 | disposition home or self-care (01) ==
LOC: RAD 11:49
PROVIDERS: PCP Registered Nurse; Visit Provider Nurse Practitioner Family
DX: C50.111 Malignant neoplasm of central portion of right female breast (principal); R92.8 Other abnormal and inconclusive findings on diagnostic imaging of breast
CPT/HCPCS: 76642

== ENCOUNTER 2022-10-05 12:02 | Outpatient (CLI) | payer MEDICARE, MEDICAID, SELFPAY ==
[2022-10-05 12:37] LABS: Basophils # 0.1 10^3/uL (0.0-0.1); Eosinophils # 0.2 10^3/uL (0.0-0.8); Eosinophils % 2.1 %; Hematocrit 39.4 % (37.0-47.0); Hemoglobin 12.8 g/dL (11.5-15.3); Lymphocytes % 51.5 %; Mean Corpuscular HGB Conc 32.5 g/dL (30.0-36.0); Mean Corpuscular Hemoglobin 28.9 pg (28.0-34.0); Mean Corpuscular Volume 88.9 fl (81-99); Monocytes # 0.4 10^3/uL (0.2-0.9); Nucleated Red Blood Cells % 0 %; Platelet Count 206 10^3/cmm (130-400); Red Blood Count 4.43 10^6/uL (4.1-5.3); Red Cell Distribution Width 13.2 % (12.1-15.1); White Blood Count 7.8 10^3/uL (4.0-10.0)
[2022-10-05 12:57] LABS: Creatinine Urine, Random 62 mg/dL (28-217); Microalbum Creatinine Ratio Ur 16 mg/dL (0-20); Microalbumin Random Urine 1 ug/dL (0-20)
[2022-10-05 13:06] LABS: Parathyroid Hormone 34.4 pg/mL (15-65)
[2022-10-05 13:11] LABS: 25 Hydroxy Vitamin D 36 ng/mL (30-100); Albumin Level 4.2 g/dL (3.5-5.2); Blood Urea Nitrogen 19 mg/dL (8-23); Calcium 9.1 mg/dL (8.5-10.5); Carbon Dioxide 20 mmol/L (22-29); Chloride 107 mmol/L (98-107); Ferritin 219 ng/mL (15-150); Glucose 108 mg/dL (65-115); Iron 82 ug/dL (37-145); Phosphorus 2.5 mg/dL (2.5-4.5); Sodium 141 mmol/L (136-145); Total Iron Binding Capacity 273 mcg/dl; Unsaturated Iron Binding 191 ug/dL (112-347)
== END 2022-10-05 12:03 | disposition home or self-care (01) ==
LOC: LAB 12:04
PROVIDERS: PCP Registered Nurse; Visit Provider Internal Medicine Nephrology
DX: E55.9 Vitamin D deficiency, unspecified (principal); N25.81 Secondary hyperparathyroidism of renal origin; N18.32 Chronic kidney disease, stage 3b; D63.1 Anemia in chronic kidney disease; D50.8 Other iron deficiency anemias
CPT/HCPCS: 36415; 80069; 82044; 82306; 82310; 82728; 83540; 83550; 83970; 85025

== ENCOUNTER → 2022-11-29 13:13 | Outpatient (BNVA) | payer MEDICARE, MEDICAID, SELFPAY | PROVIDERS: PCP Registered Nurse; Visit Provider Nurse Practitioner Family | DX: L57.0 Actinic keratosis (principal); L82.0 Inflamed seborrheic keratosis; L82.1 Other seborrheic keratosis; L81.4 Other melanin hyperpigmentation; Z85.828 Personal history of other malignant neoplasm of skin; Z80.8 Family history of malignant neoplasm of other organs or systems; Z87.891 Personal history of nicotine dependence | CPT/HCPCS: 17000; 17110; 99213 ==

== ENCOUNTER → 2023-06-03 09:25 | Outpatient (BNVA) | payer MEDICARE, SELFPAY | PROVIDERS: PCP Registered Nurse; Visit Provider Nurse Practitioner Family | DX: Z85.820 Personal history of malignant melanoma of skin (principal); Z80.8 Family history of malignant neoplasm of other organs or systems; L57.8 Other skin changes due to chronic exposure to nonionizing radiation; L82.1 Other seborrheic keratosis; L81.4 Other melanin hyperpigmentation; L57.0 Actinic keratosis; N63.12 Unspecified lump in the right breast, upper inner quadrant | CPT/HCPCS: 17000; 99213 ==

== ENCOUNTER 2023-06-11 08:48 | Oncology outpatient (recurring) (ONCR) | payer MEDICARE, SELFPAY ==
[2023-06-11 09:32] LABS: Basophils # 0.1 10^3/uL (0.0-0.1); Basophils % 0.9 %; Eosinophils # 0.2 10^3/uL (0.0-0.8); Eosinophils % 3.6 %; Hematocrit 40.3 % (36-47); Lymphocytes % 46.2 %; Mean Corpuscular HGB Conc 33.3 g/dL (30-55); Mean Corpuscular Hemoglobin 28.9 pg (27-33); Mean Platelet Volume 8.8 fL (7.4-10.4); Monocytes # 0.4 10^3/uL (0.2-0.9); Monocytes % 6.1 %; Neutrophils # 2.73 10^3/uL (1.8-7.7); Neutrophils % 42.9 %; Nucleated Red Blood Cells % 0 %; Platelet Count 190 10^3/cmm (157-399); Red Blood Count 4.63 10^6/uL (3.85-5.65); Red Cell Distribution Width 12.8 % (12.1-15.1); White Blood Count 6.38 10^3/uL (3.29-11.43)
[2023-06-11 09:58] LABS: Alanine Aminotransferase 26 U/L (0-33); Albumin Level 4.2 g/dL (3.5-5.2); Alkaline Phosphatase 102 U/L (35-105); Anion Gap 14.3 (5-19); Aspartate Amino Transferase 26 U/L (0-32); Blood Urea Nitrogen 16 mg/dL (8-23); Calcium 9.4 mg/dL (8.5-10.5); Carbon Dioxide 22 mmol/L (22-29); Chloride 103 mmol/L (98-107); Globulin 3.1 g/dL (1.3-4.6); Glucose 107 mg/dL (65-115); Osmolality Calculated 282 mOsm/kg (285-295); Potassium 4.3 mmol/L (3.5-5.1); Sodium 135 mmol/L (136-145); Total Bilirubin 0.4 mg/dL (0.15-1.2); Total Protein 7.3 g/dL (6.6-8.7)
[2023-06-11 10:03] LABS: Creatinine Clr Calc Pharmacy 32.0624
== END 2023-07-04 23:59 | disposition home or self-care (01) ==
PROVIDERS: Internal Medicine Medical Oncology; PCP Registered Nurse; Visit Provider Nurse Practitioner Family
DX: C50.111 Malignant neoplasm of central portion of right female breast (principal); Z17.0 Estrogen receptor positive status [ER+]; R53.0 Neoplastic (malignant) related fatigue; M25.59 Pain in other specified joint; G62.0 Drug-induced polyneuropathy; T45.1X5A Adverse effect of antineoplastic and immunosuppressive drugs, initial encounter; Z79.818 Long term (current) use of other agents affecting estrogen receptors and estrogen levels; Z79.899 Other long term (current) drug therapy; Z85.820 Personal history of malignant melanoma of skin; Z92.21 Personal history of antineoplastic chemotherapy; Z92.3 Personal history of irradiation; Z87.891 Personal history of nicotine dependence; R53.83 Other fatigue; D71 Functional disorders of polymorphonuclear neutrophils
CPT/HCPCS: 36415; 80053; 85025; 99214

== ENCOUNTER 2023-06-13 09:15 | Outpatient (CLI) | payer MEDICARE, SELFPAY ==
--- NOTE | 2023-06-13 09:24 | MM_ITS ---
WS: [id number] RIGHT 3D TOMOSYNTHESIS DIGITAL MAMMOGRAPHY WITH CAD CLINICAL INFORMATION: UNSPECIFIED LUMP RIGHT BREAST HISTORY: RIGHT lumpectomy. New lump COMPARISON: 08/23/2022 TECHNIQUE: 3 views of the right breast were obtained. FINDINGS: The right breast is composed of heterogeneous fibroglandular density tissue, which can limit the dete ction of small underlying mass lesions. Volume loss RIGHT breast with parenchymal fibrosis from prio r lumpectomy is unchanged. Treatment-related skin thickening RIGHT breast is unchanged in appearance. Increased but similar appearing dystrophic calcifications at the lumpectomy site. Vascular calcification. Increased parenchymal density deep to the palpable marker. Ultrasound is pending. ULTRASOUND BREAST RIGHT TECHNIQUE: Ultrasound right breast focused area of concern. CLINICAL INFORMATION: UNSPECIFIED LUMP RIGHT BREAST COMPARISON: 09/06/2022 FINDINGS: Ultrasound area of palpable concern at the 10 o'clock position 4 cm from the nipple demonstrates an o void anechoic cyst measuring 6 x 9 x 4 mm. No other suspicious findings. This is benign. IMPRESSION: MM/[place] [id number] BI-RADS: 2-Benign FOLLOW UP: 1 Year Follow-up Recommend return to annual diagnostic mammography.
--- NOTE | 2023-06-13 09:27 | US_ITS ---
WS: [id number] RIGHT 3D TOMOSYNTHESIS DIGITAL MAMMOGRAPHY WITH CAD CLINICAL INFORMATION: UNSPECIFIED LUMP RIGHT BREAST HISTORY: RIGHT lumpectomy. New lump COMPARISON: 08/23/2022 TECHNIQUE: 3 views of the right breast were obtained. FINDINGS: The right breast is composed of heterogeneous fibroglandular density tissue, which can limit the dete ction of small underlying mass lesions. Volume loss RIGHT breast with parenchymal fibrosis from prio r lumpectomy is unchanged. Treatment-related skin thickening RIGHT breast is unchanged in appearance. Increased but similar appearing dystrophic calcifications at the lumpectomy site. Vascular calcification. Increased parenchymal density deep to the palpable marker. Ultrasound is pending. ULTRASOUND BREAST RIGHT TECHNIQUE: Ultrasound right breast focused area of concern. CLINICAL INFORMATION: UNSPECIFIED LUMP RIGHT BREAST COMPARISON: 09/06/2022 FINDINGS: Ultrasound area of palpable concern at the 10 o'clock position 4 cm from the nipple demonstrates an o void anechoic cyst measuring 6 x 9 x 4 mm. No other suspicious findings. This is benign. IMPRESSION: US/US breast RT limited* [id number] BI-RADS: 2-Benign FOLLOW UP: 1 Year Follow-up Recommend return to annual diagnostic mammography.
== END 2023-06-13 09:16 | disposition home or self-care (01) ==
PROVIDERS: PCP Registered Nurse; Visit Provider Nurse Practitioner Family
DX: N63.12 Unspecified lump in the right breast, upper inner quadrant (principal)
CPT/HCPCS: 76642; 77061; G0279

== ENCOUNTER 2023-07-03 09:23 | Outpatient (CLI) | payer MEDICARE, SELFPAY ==
--- NOTE | 2023-07-03 09:45 | USCV_ITS ---
Florencia Stearns Age: 72 Gender: F : 1950 Exam Date: 07/03/2023 09:34 Ordering Phys: Carmelo Kaye MD Technologist: CT Exam Location: [facility] [place]_ Indication: sob BP: 140 / 90 HR: Rhythm: Sinus Technical Quality: Adequate MEASUREMENTS (Male / Female) Normal Values 2D ECHO LVOT Diameter 2.1 cm LV Ejection Fraction MOD 2C 68.5 % LV Ejection Fraction 2C AL 0.0 % LA Diameter 3.3 cm Aorta at Sinotubular Diameter 2.1 cm IVC Diameter 1.4 cm M-MODE LA Ao Ratio MM 1.3 AV Cusp Separation MM 1.8 cm FINDINGS Left Ventricle Normal left ventricular size and systolic function, EF 68.5%.moderate left ventricular hypertrophy. No regional wall motion abnormalities. Right Ventricle The right ventricle is normal in size and function. Right Atrium The right atrium is normal in size. Left Atrium The left atrium is normal in size. Mitral Valve No gross morphologic abnormalities noted Aortic Valve No gross morphologic abnormalities noted Tricuspid Valve No gross morphologic abnormalities noted Pulmonic Valve Pulmonic valve not well visualized. Pericardium No pericardial effusion. Aorta Normal aortic annulus size. IVC The inferior vena cava appears normal. CONCLUSIONS Normal left ventricular size and systolic function, EF 68.5%.moderate left ventricular hypertrophy. No regional wall motion abnormalities. Normal chamber sizes. No valvular abnormalities. There is no pericardial effusion. There are no intracardiac masses. Compared to the study from 01/10/2017, there may be significant change in the 2D findings. Dr Sy Mcnally MD FACC (Electronically Signed) Final Date: 03 July 2023 13:08 S
== END 2023-07-03 09:24 | disposition home or self-care (01) ==
LOC: RAD 09:24
PROVIDERS: PCP Registered Nurse; Visit Provider Internal Medicine Medical Oncology
DX: R06.02 Shortness of breath (principal); I51.7 Cardiomegaly
CPT/HCPCS: 93308

== ENCOUNTER 2023-08-15 11:13 | Oncology outpatient (recurring) (ONCR) | payer MEDICARE, SELFPAY ==
[2023-08-15 12:24] LABS: Basophils # 0.1 10^3/uL (0.0-0.1); Eosinophils # 0.2 10^3/uL (0.0-0.8); Eosinophils % 2.5 %; Hematocrit 41.3 % (36-47); Lymphocytes # 4.1 10^3/uL (0.8-4.8); Mean Corpuscular HGB Conc 32.9 g/dL (30-55); Mean Corpuscular Volume 88.1 fl (85-98); Mean Platelet Volume 8.8 fL (7.4-10.4); Monocytes # 0.5 10^3/uL (0.2-0.9); Monocytes % 5.8 %; Neutrophils # 3.47 10^3/uL (1.8-7.7); Neutrophils % 41.5 %; Nucleated Red Blood Cells % 0 %; Platelet Count 204 10^3/cmm (157-399); Red Blood Count 4.69 10^6/uL (3.85-5.65); Red Cell Distribution Width 13.4 % (12.1-15.1); White Blood Count 8.38 10^3/uL (3.29-11.43)
[2023-08-15 12:41] LABS: Alanine Aminotransferase 24 U/L (0-33); Albumin Level 4.2 g/dL (3.5-5.2); Alkaline Phosphatase 101 U/L (35-105); Anion Gap 16.4 (5-19); Aspartate Amino Transferase 26 U/L (0-32); Blood Urea Nitrogen 17 mg/dL (8-23); Calcium 9.2 mg/dL (8.5-10.5); Carbon Dioxide 22 mmol/L (22-29); Chloride 106 mmol/L (98-107); Glucose 105 mg/dL (65-115); Osmolality Calculated 292 mOsm/kg (285-295); Potassium 4.4 mmol/L (3.5-5.1); Sodium 140 mmol/L (136-145); Total Bilirubin 0.4 mg/dL (0.15-1.2); Total Protein 7.2 g/dL (6.6-8.7)
== END 2023-09-03 23:59 | disposition home or self-care (01) ==
PROVIDERS: Internal Medicine Medical Oncology; PCP Registered Nurse; Visit Provider Nurse Practitioner Family
DX: C50.111 Malignant neoplasm of central portion of right female breast (principal); Z17.0 Estrogen receptor positive status [ER+]; R53.0 Neoplastic (malignant) related fatigue; M25.59 Pain in other specified joint; G62.0 Drug-induced polyneuropathy; T45.1X5A Adverse effect of antineoplastic and immunosuppressive drugs, initial encounter; Z79.818 Long term (current) use of other agents affecting estrogen receptors and estrogen levels; Z79.899 Other long term (current) drug therapy; Z85.820 Personal history of malignant melanoma of skin; Z92.21 Personal history of antineoplastic chemotherapy; Z92.3 Personal history of irradiation; Z87.891 Personal history of nicotine dependence; R53.83 Other fatigue; D71 Functional disorders of polymorphonuclear neutrophils; X58.XXXA Exposure to other specified factors, initial encounter
CPT/HCPCS: 36415; 80053; 85025; 99214

== ENCOUNTER → 2023-12-02 10:19 | Outpatient (BNVA) | payer MEDICARE, SELFPAY | PROVIDERS: PCP Registered Nurse; Visit Provider Nurse Practitioner Family | DX: L57.8 Other skin changes due to chronic exposure to nonionizing radiation (principal); L81.4 Other melanin hyperpigmentation; L82.1 Other seborrheic keratosis; Z80.8 Family history of malignant neoplasm of other organs or systems; Z85.820 Personal history of malignant melanoma of skin; D18.01 Hemangioma of skin and subcutaneous tissue | CPT/HCPCS: 99213 ==

== ENCOUNTER 2024-02-28 11:54 | Oncology outpatient (recurring) (ONCR) | payer MEDICARE, SELFPAY ==
[2024-02-17 10:53] LABS: Basophils # 0.1 10^3/uL (0.0-0.1); Basophils % 0.9 %; Eosinophils # 0.2 10^3/uL (0.0-0.8); Eosinophils % 1.4 %; Hematocrit 41.5 % (36-47); Lymphocytes # 4.8 10^3/uL (0.8-4.8); Lymphocytes % 41.2 %; Mean Corpuscular HGB Conc 32.3 g/dL (30-55); Mean Corpuscular Hemoglobin 28.6 pg (27-33); Mean Corpuscular Volume 88.5 fl (85-98); Mean Platelet Volume 8.7 fL (7.4-10.4); Monocytes # 0.6 10^3/uL (0.2-0.9); Monocytes % 5.3 %; Neutrophils # 5.96 10^3/uL (1.8-7.7); Neutrophils % 50.7 %; Nucleated Red Blood Cells % 0 %; Platelet Count 239 10^3/cmm (157-399); Red Blood Count 4.69 10^6/uL (3.85-5.65); Red Cell Distribution Width 14.1 % (12.1-15.1); White Blood Count 11.74 10^3/uL (3.29-11.43)
[2024-02-17 11:13] LABS: Alanine Aminotransferase 19 U/L (0-33); Albumin Level 4.3 g/dL (3.5-5.2); Alkaline Phosphatase 109 U/L (35-105); Anion Gap 16.8 (5-19); Aspartate Amino Transferase 19 U/L (0-32); Blood Urea Nitrogen 25 mg/dL (8-23); Calcium 9.1 mg/dL (8.5-10.5); Carbon Dioxide 21 mmol/L (22-29); Chloride 108 mmol/L (98-107); Globulin 2.7 g/dL (1.3-4.6); Glucose 103 mg/dL (65-115); Osmolality Calculated 297 mOsm/kg (285-295); Potassium 4.8 mmol/L (3.5-5.1); Sodium 141 mmol/L (136-145); Total Bilirubin 0.6 mg/dL (0.15-1.2)
[2024-02-17 11:16] LABS: Creatinine Clr Calc Pharmacy 37.2359
--- NOTE | 2024-02-28 13:00 | PETR_ITS ---
PROCEDURE INFORMATION: Exam: PET/CT Skull Base to Mid-thigh Exam date and time: 02/28/2024 1:21 PM Age: 73 years old Clinical indication: Pain: Low back pain; Prior surgery; Surgery date: 6+ months; Surgery type: RT lumpectomy; Additional info: Low back pain, history of breast cance and melanoma LABS AND CLINICAL REPORTS: Glucose: 101 mg/dl Treatment strategy for malignancy (PET staging): Restaging (PS) TECHNIQUE: Imaging protocol: Following at least four-hour fasting and following the injection of radiopharmaceutical, low dose CT images were obtained. Then, PET images were obtained. Attenuation corrected images were constructed using the CT scan. Fused images of PET and CT were reviewed. The standardized uptake values (SUV) reported below are maximum values within a region of interest, expressed in gm/ml. Exam includes orbital meatal line to mid-thigh. Radiopharmaceutical: 10.58 mCi F-18 FDG (Fluorodeoxyglucose), IV. Time of imaging post radiopharmaceutical administration: 1 hour Injection site: LEFT AC COMPARISON: CTA chest 08/17/2021, PT PET Scan Full Body RAD 02/04/2021 8:04 AM FINDINGS: Brain: Visualized brain has normal physiologic uptake. Pharynx: No abnormal uptake. Larynx: No abnormal uptake. Lungs, pleura and trachea: Biapical pleural scarring is noted. On the right, mild uptake within this region of scarring is noted, SUV max 2.9 and is likely inflammatory. Respiratory motion artifact is noted. There is a medial left lower lobe calcified granuloma. Heart: Normal physiologic uptake. Mediastinal space: No abnormal uptake. Esophagus: Distal esophageal uptake is new since the prior PET-CT, SUV max 8.3 the PET image 142/CT image 260, without a definite correlating lesion on the CT images. Assessment of the esophagus is limited by nondistention in this region. Liver: No abnormal uptake. Gallbladder and biliary ducts: No abnormal uptake. Pancreas: No abnormal uptake. Spleen: No abnormal uptake. Adrenal glands: No abnormal uptake. Kidneys and ureters: No abnormal uptake. A low-density structure arising from the left renal superior pole is likely related to a benign cyst. Stomach and bowel: A focus of uptake in the vicinity of the superior aspect of the proximal sigmoid colonic wall on the left is new since the prior PET-CT, SUV max 14.8 without a corresponding lesion on the CT images in this location, best demonstrated on PET series 301, image 248 in an area measuring approximately 2.0 x 1.1 cm. Numerous colonic diverticula are identified. Vasculature: No abnormal uptake. Lymph nodes: Elevated uptake in the superior right hilar region is noted, SUV max 6.8 (previously 6.4) on PET series 301, image 115 within a lymph node measuring 1.7 x [address] image 285. This lymph node is likely similar in size compared to the prior PET-CT. No additional radiotracer avid mediastinal or hilar lymph nodes are identified. Skeleton: No abnormal uptake in the visualized axial and appendicular skeleton. Degenerative changes in the spine are noted. Severe right and [id number] left hip joint space narrowing and osteophyte formation is present. Benign appearing, physiologic or inflammatory uptake in the region of the teres minor muscle on the left is noted. Regions of elevated uptake in the soft tissues of the right supraclavicular region are noted without definite correlating lesions on the CT images, likely related to benign muscular uptake. Soft tissues: Uptake within the right breast is elevated, SUV max 6.1 on PET series 301, image 139 within a spiculated superior subareolar soft tissue density mass containing punctate calcifications measuring 2.1 cm in diameter on CT series 202, image 265. On the prior CTA chest this region measured approximately 1 cm in diameter. A moderate hernial hernia is present. No abnormal uptake. METRICS: Mediastinal blood pool: SUV max 3.0, SUV mean 2.8 PET/PET skull to thigh SUBS [id number] IMPRESSION: 1. A spiculated right breast subareolar mass is increased in size compared with 08/17/2021, highly concerning for recurrent malignancy. 2. Elevated uptake in a right hilar lymph node is noted, concerning for possible metastasis. 3. A focal ovoid region of marked elevated uptake along the superior aspect of the proximal sigmoid colon is noted, likely involving the sigmoid colonic wall. Assessment of the wall is limited by PET/CT. This uptake may be associated with mild inflammatory changes noted colon is or diverticulitis, however, a malignant etiology cannot be entirely excluded. 4. Uptake within the distal esophagus is new, and can be associated with inflammatory changes/esophagitis. Malignancy in this region cannot be entirely excluded. 5. Additional nonurgent findings as detailed above.
== END 2024-03-05 23:59 | disposition home or self-care (01) ==
LOC: RAD 11:54 → ONCMED 03-02 10:39
PROVIDERS: PCP Registered Nurse; Visit Provider Nurse Practitioner Family
DX: C43.59 Malignant melanoma of other part of trunk (principal); R93.3 Abnormal findings on diagnostic imaging of other parts of digestive tract; C50.111 Malignant neoplasm of central portion of right female breast; R59.9 Enlarged lymph nodes, unspecified
CPT/HCPCS: 36415; 78815; 80053; 85025; 99214; A9552

== ENCOUNTER → 2024-03-09 12:28 | Outpatient (BNVA) | payer MEDICARE, SELFPAY | PROVIDERS: PCP Registered Nurse; Referring Provider Nurse Practitioner Family; Visit Provider Student in an Organized Health Care Education/Training Program | DX: C50.111 Malignant neoplasm of central portion of right female breast (principal) | CPT/HCPCS: 99204; 99214 ==

== ENCOUNTER 2024-03-26 11:26 | Outpatient (CLI) | payer MEDICARE, SELFPAY ==
--- NOTE | 2024-03-26 12:00 | MM_ITS ---
WS: [id number] BILATERAL 3D TOMOSYNTHESIS DIGITAL DIAGNOSTIC MAMMOGRAPHY WITH CAD CLINICAL INFORMATION: C50.111 - Malignant neoplasm of central portion of right ... HISTORY: History of RIGHT lumpectomy 2016. COMPARISON: 06/13/2023 TECHNIQUE: Bilateral CC, MLO, and ML views. FINDINGS: The breasts are composed of heterogeneous fibroglandular density, which can limit the detection of sm all underlying mass lesions. Markedly increased calcifications with pleomorphic calcifications at the lumpectomy site with increased soft tissue density posterior to the RIGHT nipple. Associated nipple retraction. Findings suspicious for recurrence in this area. Increased activity in this area on the r ecent PET/CT. Ultrasound is pending. LEFT breast is unchanged. Vascular calcifications. ULTRASOUND BREAST RIGHT TECHNIQUE: Ultrasound right breast focused area of concern. CLINICAL INFORMATION: C50.111 - Malignant neoplasm of central portion of right ... FINDINGS: Deep to the areola, in the area of concern, there is a large shadowing spiculated mass corresponding to the mammographic findings highly suspicious for malignancy. Shadowing mass measures approximate 2. 5 x 1.7 x 1.4 cm. Recommend further evaluation with ultrasound-guided biopsy Ultrasound of the RIGHT axilla. No suspicious findings in the RIGHT axilla. No visualized lymph nodes or enlarged lymph nodes in the RIGHT axilla. MM/MM diag BI tomosynthesis [id number] IMPRESSION: DENSITY: The breasts are heterogeneously dense, which may obscure small masses. BI-RADS: 5 - Highly suggestive of Malignancy FOLLOW UP: US Guided Biopsy Recommended Recommend ultrasound-guided biopsy in further evaluation.
--- NOTE | 2024-03-26 12:30 | US_ITS ---
WS: [id number] BILATERAL 3D TOMOSYNTHESIS DIGITAL DIAGNOSTIC MAMMOGRAPHY WITH CAD CLINICAL INFORMATION: C50.111 - Malignant neoplasm of central portion of right ... HISTORY: History of RIGHT lumpectomy 2016. COMPARISON: 06/13/2023 TECHNIQUE: Bilateral CC, MLO, and ML views. FINDINGS: The breasts are composed of heterogeneous fibroglandular density, which can limit the detection of sm all underlying mass lesions. Markedly increased calcifications with pleomorphic calcifications at the lumpectomy site with increased soft tissue density posterior to the RIGHT nipple. Associated nipple retraction. Findings suspicious for recurrence in this area. Increased activity in this area on the r ecent PET/CT. Ultrasound is pending. LEFT breast is unchanged. Vascular calcifications. ULTRASOUND BREAST RIGHT TECHNIQUE: Ultrasound right breast focused area of concern. CLINICAL INFORMATION: C50.111 - Malignant neoplasm of central portion of right ... FINDINGS: Deep to the areola, in the area of concern, there is a large shadowing spiculated mass corresponding to the mammographic findings highly suspicious for malignancy. Shadowing mass measures approximate 2. 5 x 1.7 x 1.4 cm. Recommend further evaluation with ultrasound-guided biopsy Ultrasound of the RIGHT axilla. No suspicious findings in the RIGHT axilla. No visualized lymph nodes or enlarged lymph nodes in the RIGHT axilla. US/US breast RT complete [id number] IMPRESSION: DENSITY: The breasts are heterogeneously dense, which may obscure small masses. BI-RADS: 5 - Highly suggestive of Malignancy FOLLOW UP: US Guided Biopsy Recommended Recommend ultrasound-guided biopsy in further evaluation.
== END 2024-03-26 11:27 | disposition home or self-care (01) ==
LOC: RAD 11:30
PROVIDERS: PCP Registered Nurse; Visit Provider Student in an Organized Health Care Education/Training Program
DX: C50.111 Malignant neoplasm of central portion of right female breast (principal); R92.333 Mammographic heterogeneous density, bilateral breasts; R92.1 Mammographic calcification found on diagnostic imaging of breast; Z98.890 Other specified postprocedural states; N63.41 Unspecified lump in right breast, subareolar
CPT/HCPCS: 76641; 77061; 77062; G0279

== ENCOUNTER → 2024-03-31 09:08 | Outpatient (BNVA) | payer MEDICARE, SELFPAY | PROVIDERS: PCP Registered Nurse; Visit Provider Student in an Organized Health Care Education/Training Program | DX: Z09 Encounter for follow-up examination after completed treatment for conditions other than malignant neoplasm (principal) | CPT/HCPCS: 99214 ==

== ENCOUNTER 2024-04-24 10:20 | Oncology outpatient (recurring) (ONCR) | payer MEDICARE, SELFPAY ==
--- NOTE | 2024-04-24 11:30 | US_ITS ---
WS: [id number] ULTRASOUND-GUIDED RIGHT BREAST BIOPSY HISTORY: malignant neoplasm of central portion of right female breast COMPARISON: 03/26/2024, 06/13/2023 Procedure, risks and complications are explained to the patient. Medications are reviewed. Consent is obtained. The mass in the RIGHT breast is localized with ultrasound. Mass is retroareolar. Skin is cleansed wit h ChloraPrep and anesthetized with 1% buffered lidocaine. Small dermatome is made. Under sterile cond itions mass is biopsied with a 14-gauge Achieve needle. Multiple core biopsies are performed. Materia l placed in formalin and sent to pathology for review. No complications encountered. Breast tissue marker (Shaka ultrasound enhanced ribbon): Single. Patient left the radiology suite with no complications. Patient is instructed to return [place] [facility] [place] or [facility] with any concerns. US/[place] [id number] IMPRESSION: 1. Uncomplicated core needle biopsy of irregular mass with calcification RIGHT breast retroareolar. PATHOLOGY: Fibroadipose tissue fragments with rare detached clusters of atypia. RECOMMENDATION: Surgical excision RIGHT breast mass. The RIGHT breast mass is v herbert spiculated and highly suspicious for malignancy. The core biopsy was perfor med in the correct location. Specimen appeared adequate during the biopsy. The pathology report did not describe a malignancy. Recommend at this time RIGHT br east surgical biopsy. Mammographic, ultrasound features and pathology findings are not concordant. By imaging RIGHT breast mass is a malignancy until proven o therwise.
== END 2024-05-05 23:59 | disposition home or self-care (01) ==
LOC: ONCMED 10:21 → RAD 10:27 → ONCMED 04-27 10:36
PROVIDERS: PCP Registered Nurse; Visit Provider Student in an Organized Health Care Education/Training Program
DX: C50.111 Malignant neoplasm of central portion of right female breast (principal); Z53.9 Procedure and treatment not carried out, unspecified reason
CPT/HCPCS: 19083; 88305

== ENCOUNTER → 2024-05-01 09:40 | Outpatient (BNVA) | payer MEDICARE, SELFPAY | PROVIDERS: PCP Registered Nurse; Visit Provider Student in an Organized Health Care Education/Training Program | DX: C50.111 Malignant neoplasm of central portion of right female breast (principal) | CPT/HCPCS: 99214 ==

== ENCOUNTER 2024-05-11 08:56 | Oncology outpatient (recurring) (ONCR) | payer MEDICARE, SELFPAY | END 2024-06-05 23:59 | disposition home or self-care (01) | LOC: ONCMED 08:57 | PROVIDERS: PCP Registered Nurse; Visit Provider Student in an Organized Health Care Education/Training Program | DX: C50.111 Malignant neoplasm of central portion of right female breast (principal); C43.59 Malignant melanoma of other part of trunk | CPT/HCPCS: 99214 ==

== ENCOUNTER → 2024-05-19 09:26 | Outpatient (BNVA) | payer MEDICARE, SELFPAY | PROVIDERS: PCP Registered Nurse; Visit Provider Student in an Organized Health Care Education/Training Program | DX: C50.111 Malignant neoplasm of central portion of right female breast (principal) | CPT/HCPCS: 99213 ==

== ENCOUNTER 2024-06-25 10:16 | Oncology outpatient (recurring) (ONCR) | payer MEDICARE, SELFPAY ==
[2024-06-25 11:33] LABS: Basophils # 0.1 10^3/uL (0.0-0.1); Eosinophils # 0.2 10^3/uL (0.0-0.8); Eosinophils % 2.7 %; Hematocrit 41.3 % (36-47); Lymphocytes # 3.7 10^3/uL (0.8-4.8); Lymphocytes % 41.5 %; Mean Corpuscular HGB Conc 33.2 g/dL (30-55); Mean Corpuscular Hemoglobin 28.8 pg (27-33); Mean Corpuscular Volume 86.9 fl (85-98); Mean Platelet Volume 8.7 fL (7.4-10.4); Monocytes # 0.7 10^3/uL (0.2-0.9); Monocytes % 7.4 %; Neutrophils # 4.15 10^3/uL (1.8-7.7); Neutrophils % 46.9 %; Nucleated Red Blood Cells % 0 %; Platelet Count 192 10^3/cmm (157-399); Red Blood Count 4.75 10^6/uL (3.85-5.65); Red Cell Distribution Width 12.8 % (12.1-15.1); White Blood Count 8.86 10^3/uL (3.29-11.43)
[2024-06-25 12:03] LABS: Carcinoembryonic Antigen 1.5 ng/mL (0.0-4.7)
[2024-06-25 12:14] LABS: Alanine Aminotransferase 15 U/L (0-33); Albumin Level 4.4 g/dL (3.5-5.2); Alkaline Phosphatase 102 U/L (35-105); Anion Gap 20.5 (5-19); Aspartate Amino Transferase 19 U/L (0-32); Blood Urea Nitrogen 19 mg/dL (8-23); Calcium 9.9 mg/dL (8.5-10.5); Carbon Dioxide 22 mmol/L (22-29); Chloride 101 mmol/L (98-107); Creatinine Clr Calc Pharmacy 37.3535; Globulin 3.1 g/dL (1.3-4.6); Glucose 99 mg/dL (65-115); Lactate Dehydrogenase 232 U/L (135-214); Osmolality Calculated 290 mOsm/kg (285-295); Potassium 4.5 mmol/L (3.5-5.1); Sodium 139 mmol/L (136-145); Total Bilirubin 0.5 mg/dL (0.15-1.2); Total Protein 7.5 g/dL (6.6-8.7)
== END 2024-07-03 23:59 | disposition home or self-care (01) ==
PROVIDERS: Internal Medicine; PCP Registered Nurse; Visit Provider Student in an Organized Health Care Education/Training Program
DX: Z08 Encounter for follow-up examination after completed treatment for malignant neoplasm (principal); Z85.3 Personal history of malignant neoplasm of breast; Z85.820 Personal history of malignant melanoma of skin; Z92.3 Personal history of irradiation; Z92.21 Personal history of antineoplastic chemotherapy; Z87.891 Personal history of nicotine dependence; Z92.23 Personal history of estrogen therapy
CPT/HCPCS: 36415; 80053; 82378; 83615; 85025; 99213

== ENCOUNTER → 2024-06-29 09:50 | Outpatient (BNVA) | payer MEDICARE, SELFPAY | PROVIDERS: PCP Registered Nurse; Visit Provider Student in an Organized Health Care Education/Training Program | DX: Z85.3 Personal history of malignant neoplasm of breast (principal) | CPT/HCPCS: 99214 ==

== ENCOUNTER 2024-07-07 05:57 | Day surgery (SDC) | payer MEDICARE, SELFPAY ==
[2024-07-07 06:11] VITALS: PULSE 89; RESP 17; TEMP 36.4; O2SAT 97; BMI 30.2
[2024-07-07] MEDS: sodium chloride 0.9% 1,000 ML 30 ML IV (06:23)
--- NOTE | 2024-07-07 06:56 | ANES.PREANE2 ---
Pre-Anesthetic Assessment Height/Weight: Height 1.55 m Weight 72.575 kg Temp Pulse Resp Pulse Ox O2 Del Method 97.5 F L 89 17 97 Room Air 07/07/24 06:11 07/07/24 06:11 07/07/24 06:11 07/07/24 06:11 07/07/24 06:11 Preop Diagnosis: Breast CA Stage 4, GERD, Screening Operation Date: 07/07/24 07:30 Proposed Procedures p EGD 25828, 86407, G0105, C50.919(Not Applicable) - Dex Greenfield MD s Colonoscopy(Not Applicable) - Dex Greenfield MD Familial anesthetic complications: none Was Beta Igor taken within 24 hours: N/A Was Clonidine taken within 24 hours: N/A Last intake: Intake Last Liquid Date 07/06/24 Last Liquid Time 17:00 Last Solid Date 07/05/24 Last Solid Time 13:00 Social No alcohol and No tobacco Exam alert, oriented x 3, clear to auscultation bilaterally and regular rate & rhythm Airway Submandibular: within normal limits Cervical ROM: within normal limits Mallampati: Class III Dentition: chipped Comments: Comments: front left upper incisor chipped Pulmonary None reported CV/HEM Hypertension Chronic Renal Insufficiency Hepatic None reported GI Gastroesophageal Reflux Disease Metabolic Hyperlipidemia [facility] [place] None reported Neuropsych Anxiety Anesthetic Plan ASA status: 3 Anesthesia: MAC Other: Stage 4 Breast cancer Risk of > 500 ml blood loss (7ml/kg in children): No Medications/Allergies Home Medications ?Medication ?Instructions ?Recorded ?Confirmed ?Last Taken ?Type citalopram 20 mg tablet 20 mg PO DAILY 01/05/21 07/07/24 07/05/24 History lisinopril 20 mg tablet 20 mg PO DAILY 01/05/21 07/07/24 07/05/24 History cyclobenzaprine 10 mg tablet 10 mg PO ONCE PRN Muscle Spasm 01/02/22 07/07/24 07/05/24 History acetaminophen 325 mg tablet 325 mg PO QID PRN Pain (Scale 04/09/22 07/02/24 06/29/24 History (Tylenol) Score 1-3) cholecalciferol (vitamin D3) 25 25 mcg PO DAILY 06/11/23 07/07/24 07/05/24 History mcg (1,000 unit) capsule esomeprazole magnesium 20 mg 20 mg PO DAILY 06/11/23 07/07/24 07/05/24 History capsule,delayed release exemestane 25 mg tablet See Rx Instructions .Route 10/14/23 07/07/24 07/05/24 Rx .COMPLEX #90 tabs hydrocodone 5 mg-acetaminophen 325 1 tab PO Q6H PRN pain 30 days #60 02/18/24 07/07/24 07/05/24 Rx mg tablet tabs amitriptyline 25 mg tablet 25 mg PO DAILY 07/02/24 07/07/24 07/05/24 History Allergies Allergy/AdvReac Type Severity Reaction Status Date / Time No Known Allergies Allergy Verified 06/29/24 09:53 Current Medications Generic Name Dose Route Start Last Admin Trade Name Freq PRN Reason Stop Dose Admin Sodium Chloride 1,000 mls @ 30 mls/hr 07/07/24 06:30 07/07/24 06:23 Sodium Chloride 0.9% IV 30 mls/hr .Q24H SHAILA Administration PFSH Anesthesia Medical History (Updated 06/29/24 @ 10:11 by Dex Greenfield MD) History of melanoma Chronic kidney disease Degenerative joint disease of spine Degenerative arthritis Peripheral neuropathy due to chemotherapy Dyslipidemia GERD (gastroesophageal reflux disease) Breast cancer HTN (hypertension) Anxiety Surgical History History of melanoma excision (02/01/21) Wide excision of right upper back melanoma with axillary sentinel lymph node biopsy S/P breast biopsy, right 02/24/2016 and 09/13/2016 History of colonoscopy Social History Smoking and tobacco/nicotine status: former use of tobacco/nicotine Quit status (tobacco/nicotine): has quit using Year quit tobacco: 1999 Former quit date comment: 5 years total use Data Anesthesia Cardiac Studies: Echocardiogram Limited Views 07/03/23
--- NOTE | 2024-07-07 07:03 | W.PM.OPSUD ---
Surgery/Procedure H&P Update DATE OF PROCEDURE: July 07, 2024 DATE H&P PERFORMED: 06/29/24 H&P UPDATE INFORMATION: I have reviewed H&P completed within last 30 days, I have examined patient prior to procedure and No changes to prior documentation PREOP DIAGNOSIS: Breast CA Stage 4, GERD, Screening PLANNED PROCEDURE: Operation Date: 07/07/24 07:30 Proposed Procedures p EGD 08083, 95878, G0105, C50.919(Not Applicable) - Dex Greenfield MD s Colonoscopy(Not Applicable) - Dex Greenfield MD
[2024-07-07 07:56] VITALS: BP 171/81; PULSE 80; RESP 16; TEMP 36.1; O2SAT 97
[2024-07-07 08:09] VITALS: BP 172/82; PULSE 78; RESP 16; O2SAT 95
--- NOTE | 2024-07-07 08:35 | ANE.PACU2 ---
Inpatient post-anesthesia follow up: Airway intact: Yes Vital signs: Temperature 97 F Pulse Rate 78 Respiratory Rate 16 Blood Pressure 172/82 Pulse Oximetry 95 Oxygen Delivery Me thod Room Air Oxygen Flow Rate Fraction of Inspir ed Oxygen Hydration adequate: Yes Nausea and vomiting: No Pain level: 1 Mental status: Baseline
== END 2024-07-07 08:36 | disposition home or self-care (01) ==
PROVIDERS: PCP Family Medicine; Visit Provider Student in an Organized Health Care Education/Training Program
PROC: 0DJ08ZZ Inspection of Upper Intestinal Tract, Via Natural or Artificial Opening Endoscopic (ICD-10-PCS; principal; 2024-07-07 07:30)
PROC: 0DJD8ZZ Inspection of Lower Intestinal Tract, Via Natural or Artificial Opening Endoscopic (ICD-10-PCS; CPT 45378; 2024-07-07 07:30)
DX: K29.50 Unspecified chronic gastritis without bleeding (principal); K44.9 Diaphragmatic hernia without obstruction or gangrene; C50.919 Malignant neoplasm of unspecified site of unspecified female breast; K57.30 Diverticulosis of large intestine without perforation or abscess without bleeding; I12.9 Hypertensive chronic kidney disease with stage 1 through stage 4 chronic kidney disease, or unspecified chronic kidney disease; N18.9 Chronic kidney disease, unspecified; R93.5 Abnormal findings on diagnostic imaging of other abdominal regions, including retroperitoneum; E78.5 Hyperlipidemia, unspecified; K21.9 Gastro-esophageal reflux disease without esophagitis; Z79.899 Other long term (current) drug therapy; Z87.891 Personal history of nicotine dependence
CPT/HCPCS: 43239; 45378; 88305; J2704; J7030

== ENCOUNTER 2024-07-16 09:00 | Oncology outpatient (recurring) (ONCR) | payer MEDICARE, SELFPAY | END 2024-08-03 23:59 | disposition home or self-care (01) | PROVIDERS: PCP Family Medicine; Visit Provider Student in an Organized Health Care Education/Training Program | DX: N63.10 Unspecified lump in the right breast, unspecified quadrant (principal); Z08 Encounter for follow-up examination after completed treatment for malignant neoplasm; Z85.3 Personal history of malignant neoplasm of breast; Z85.820 Personal history of malignant melanoma of skin; Z87.891 Personal history of nicotine dependence; Z92.21 Personal history of antineoplastic chemotherapy; Z92.3 Personal history of irradiation; Z92.23 Personal history of estrogen therapy | CPT/HCPCS: 99213 ==

== ENCOUNTER → 2024-07-20 10:24 | Outpatient (BNVA) | payer MEDICARE, SELFPAY | PROVIDERS: PCP Family Medicine; Visit Provider Student in an Organized Health Care Education/Training Program | DX: Z09 Encounter for follow-up examination after completed treatment for conditions other than malignant neoplasm (principal); C50.911 Malignant neoplasm of unspecified site of right female breast | CPT/HCPCS: 99214 ==

== ENCOUNTER 2024-07-29 06:56 | Day surgery (SDC) | payer MEDICARE, SELFPAY ==
[2024-07-29] VITALS (12 sets, daily range): BP systolic 136–172; BP diastolic 76–94; PULSE 74–98; RESP 11–19; TEMP 36.1–36.5; O2SAT 91–100; BMI 29.8
[2024-07-29] MEDS: sodium chloride 0.9% 1,000 ML 30 ML IV (07:20)
--- NOTE | 2024-07-29 07:34 | ANES.PREANE2 ---
Pre-Anesthetic Assessment Height/Weight: Height 5 ft 1 in Weight 158 lb Temp Pulse Resp BP Pulse Ox O2 Del Method 97.3 F L 74 18 155/91 99 Room Air 07/29/24 07:11 07/29/24 07:11 07/29/24 07:11 07/29/24 07:11 07/29/24 07:11 07/29/24 07:15 Preop Diagnosis: Breast cancer Operation Date: 07/29/24 08:40 Proposed Procedures p Mastectomy Simple 77452, 39520, 88589, C50.919(Right) - Dex Greenfield MD s Sentinal Lymph Node Biopsy(Right) - Dex Greenfield MD Was Beta Igor taken within 24 hours: N/A Was Clonidine taken within 24 hours: N/A Last intake: Intake Last Liquid Date 07/28/24 Last Liquid Time 20:00 Last Solid Date 07/28/24 Last Solid Time 20:00 Social No alcohol and No tobacco Exam alert, oriented x 3, clear to auscultation bilaterally and regular rate & rhythm Airway Submandibular: within normal limits Cervical ROM: within normal limits Mallampati: Class IV Dentition: full Comments: Comments: Small mouth opening, good neck extension, shorter thyromental distance Anesthetic Plan ASA status: 3 Anesthesia: General Other: No prior issues with anesthesia NPO since yesterday evening Patient was just here for a colonoscopy and did well History of hypertension on lisinopril. Preop BP 155/91 GERD used to take esomeprazole but patient states she has not taken it in a while. Denies any current GERD symptoms Labs 06/25/2024 reviewed acceptable for procedure Echo 2023 showing EF 68% Plan for general anesthesia Medications/Allergies Home Medications ?Medication ?Instructions ?Recorded ?Confirmed ?Last Taken ?Type citalopram 20 mg tablet 20 mg PO DAILY 01/05/21 07/28/24 07/28/24 History lisinopril 20 mg tablet 20 mg PO DAILY 01/05/21 07/28/24 07/29/24 06:00 History cyclobenzaprine 10 mg tablet 10 mg PO ONCE PRN Muscle Spasm 01/02/22 07/28/24 07/05/24 History acetaminophen 325 mg tablet 325 mg PO QID PRN Pain (Scale 04/09/22 07/28/24 07/28/24 History (Tylenol) Score 1-3) cholecalciferol (vitamin D3) 25 25 mcg PO DAILY 06/11/23 07/28/24 07/28/24 History mcg (1,000 unit) capsule esomeprazole magnesium 20 mg 20 mg PO DAILY 06/11/23 07/28/24 07/05/24 History capsule,delayed release hydrocodone 5 mg-acetaminophen 325 1 tab PO Q6H PRN pain 30 days #60 02/18/24 07/28/24 07/28/24 Rx mg tablet tabs amitriptyline 25 mg tablet 25 mg PO DAILY 07/02/24 07/28/24 07/28/24 History exemestane 25 mg tablet 25 mg PO DAILY 07/28/24 07/28/24 07/26/24 History Allergies Allergy/AdvReac Type Severity Reaction Status Date / Time No Known Allergies Allergy Verified 07/20/24 10:35 Current Medications Generic Name Dose Route Start Last Admin Trade Name Freq PRN Reason Stop Dose Admin Sodium Chloride 1,000 mls @ 30 mls/hr 07/29/24 07:15 07/29/24 07:20 Sodium Chloride 0.9% IV 07/30/24 07:14 30 mls/hr .Q24H SHAILA Administration PFSH Anesthesia Medical History History of melanoma Chronic kidney disease Degenerative joint disease of spine Degenerative arthritis Peripheral neuropathy due to chemotherapy Dyslipidemia GERD (gastroesophageal reflux disease) Breast cancer HTN (hypertension) Anxiety Surgical History History of melanoma excision (02/01/21) Wide excision of right upper back melanoma with axillary sentinel lymph node biopsy S/P breast biopsy, right 02/24/2016 and 09/13/2016 History of colonoscopy Social History Smoking and tobacco/nicotine status: former use of tobacco/nicotine Quit status (tobacco/nicotine): has quit using Year quit tobacco: 1999 Former quit date comment: 5 years total use Data Anesthesia Cardiac Studies: Echocardiogram Limited Views 07/03/23
--- NOTE | 2024-07-29 07:46 | NM_ITS ---
WS: [id number] NUCLEAR MEDICINE SENTINEL LYMPH NODE IMAGING HISTORY: Recurrent right breast cancer COMPARISON: None available. TECHNIQUE: The patient was injected with mCi of Technetium 99m Tilmanocept. Injection is intradermal just below the nipple. Single injection performed. No post imaging obtained. NM/NM sentinel node inject [id number] IMPRESSION: Uncomplicated RIGHT breast sentinel node injection.
--- NOTE | 2024-07-29 08:09 | W.PM.OPSUD ---
Surgery/Procedure H&P Update DATE OF PROCEDURE: July 29, 2024 DATE H&P PERFORMED: 07/20/24 H&P UPDATE INFORMATION: I have reviewed H&P completed within last 30 days, I have examined patient prior to procedure and No changes to prior documentation PLANNED PROCEDURE: Operation Date: 07/29/24 08:40 Proposed Procedures p Mastectomy Simple 88694, 70961, 45864, C50.919(Right) - Dex Greenfield MD s Sentinal Lymph Node Biopsy(Right) - Dex Greenfield MD
[2024-07-29] MEDS: ceFAZolin 2,000 mg SDV 2000 MG IVP (09:38)
[2024-07-29] MEDS: isosulfan blue 10 mg/mL SDV 5mL SUBCUT (10:22)
--- NOTE | 2024-07-29 10:56 | PM.OP ---
Operative Report Date of procedure: July 29, 2024 Pre-op diagnosis: Right breast cancer Post-op diagnosis: same Post-op findings: Firm mass in right breast. Resected sentinel lymph node pack in axilla. Procedure done: Right simple mastectomy and sentinel lymph node biopsy Implants: N/A Specimens removed/disposition: Right breast and right axilla sentinel lymph node biopsy Pathology: Right breast and right axilla sentinel lymph node biopsy sent to pathology Surgeon: Dex Greenfield MD Set Up Mechanic Heading Machines: N/A Anesthesia: General Estimated blood loss (mL): 50 Complications: N/A Findings: Firm mass in right breast. [place] lymph node biopsy pack resected. Condition: stable Disposition: same day Brief History: 73-year-old female who presented with a past recurrent right breast cancer. Discussed risk and benefits and patient agreed to proceed with right simple mastectomy and sentinel lymph node biopsy. Procedure: The patient was wheeled into the operative room and placed on the OR table in the supine position. The right breast and axilla were inspected prepped and draped in the usual sterile fashion. A timeout was performed. All present were in agreement. Lymphazurin blue was injected subareolarly and into the mass. These areas were massaged for 5 minutes. An elliptical incision was made from medial to the latissimus dorsi to lateral to the sternum, encompassing the nipple. Dissection was carried out using electrocautery down to the clavipectoral fascia and down to the pectoralis major. The entirety of the breast tissue was excised. The breast was removed and a the lateral margin was marked with a 2-0 nylon stitch cut long, and the superior margin was marked with a 2-0 nylon stitch cut short. The specimen was passed off. The surgical field was irrigated with sterile water and adequate hemostasis was achieved using electrocautery. The breast was packed and I then centered my attention in the axilla to perform the sentinel lymph node biopsy. The [place] counter at the mass was initially registering at 168. At the axilla, the [place] counter was registering 72. I performed a separate 4cm incision at the axilla and carried the dissection down to the axillary fascia. I visualized the axillary vein. I used the [place] counter and removed the sentinel lymph node pack which was identified as being hot, blue, and indurated. The sentinel lymph node pack was sent to pathology for permanent sections. The axilla was irrigated and I achieved adequate hemostasis with electrocautery. I did ligate a small vein using a 3-0 silk stitch. I then proceeded to close the axillary fascia using interrupted 3-0 Vicryl. The deep dermal layer was closed using interrupted 3-0 Vicryl and epidermis was closed using 4-0 monocryl in a running subcuticular fashion. I then focused on to the chest for closure. Adequate hemostasis was confirmed. A 14 [place] Manohar drain was then placed in the resection bed. Dermis was then approximated with interrupted 2-0 Vicryl and 3-0 Vicryl. Skin was then closed with 4-0 monocryl in a subcuticular running fashion. Surgical glue was applied. The chest was dressed using fluffs and a sports bra. Patient tolerated the procedure well and was wheeled in the postoperative anesthesia care unit in good condition.
[2024-07-29] MEDS: oxyCODONE 5 mg IR Tab/Cap PO (12:14)
--- NOTE | 2024-07-29 13:00 | ANE.PACU2 ---
Inpatient post-anesthesia follow up: Airway intact: Yes Vital signs: Temperature 97.7 F Pulse Rate 87 Respiratory Rate 18 Blood Pressure 153/79 Pulse Oximetry 98 Oxygen Delivery Me thod Room Air Oxygen Flow Rate 8 Fraction of Inspir ed Oxygen Hydration adequate: Yes Nausea and vomiting: No Pain level: 1 Mental status: Baseline
[2024-08-06 13:07] LABS: Breast Profile ER,PR,HER2,Ki-6 See Report
== END 2024-07-29 13:00 | disposition home or self-care (01) ==
PROVIDERS: PCP Family Medicine; Visit Provider Student in an Organized Health Care Education/Training Program
PROC: (CPT 19303; principal; 2024-07-29 08:30)
PROC: (CPT 19303; 2024-07-29 08:30)
DX: C50.111 Malignant neoplasm of central portion of right female breast (principal); Z79.899 Other long term (current) drug therapy; Z85.820 Personal history of malignant melanoma of skin; E78.5 Hyperlipidemia, unspecified; I12.9 Hypertensive chronic kidney disease with stage 1 through stage 4 chronic kidney disease, or unspecified chronic kidney disease; N18.9 Chronic kidney disease, unspecified; Z87.891 Personal history of nicotine dependence
CPT/HCPCS: 19303; 38525; 38792; 88307; 88361; 88374; A9520; J0690; J1100; J1200; J2405; J2704; J3010; J7030; J9999; Q9968

== ENCOUNTER → 2024-08-10 09:20 | Outpatient (BNVA) | payer MEDICARE, SELFPAY | PROVIDERS: PCP Family Medicine; Visit Provider Student in an Organized Health Care Education/Training Program | DX: Z98.890 Other specified postprocedural states (principal); Z90.11 Acquired absence of right breast and nipple | CPT/HCPCS: 99024 ==

== ENCOUNTER 2024-08-28 10:30 | Oncology outpatient (recurring) (ONCR) | payer MEDICARE, SELFPAY ==
[2024-08-12 10:59] LABS: Basophils # 0.1 10^3/uL (0.0-0.1); Basophils % 0.7 %; Eosinophils # 0.2 10^3/uL (0.0-0.8); Eosinophils % 2.3 %; Hematocrit 37.3 % (36-47); Lymphocytes # 3.1 10^3/uL (0.8-4.8); Lymphocytes % 37.8 %; Mean Corpuscular HGB Conc 33.2 g/dL (30-55); Mean Corpuscular Hemoglobin 29.5 pg (27-33); Mean Corpuscular Volume 88.6 fl (85-98); Mean Platelet Volume 8.6 fL (7.4-10.4); Monocytes # 0.5 10^3/uL (0.2-0.9); Monocytes % 6.1 %; Neutrophils # 4.35 10^3/uL (1.8-7.7); Neutrophils % 52.7 %; Nucleated Red Blood Cells % 0 %; Platelet Count 237 10^3/cmm (157-399); Red Blood Count 4.21 10^6/uL (3.85-5.65); Red Cell Distribution Width 13.2 % (12.1-15.1); White Blood Count 8.25 10^3/uL (3.29-11.43)
[2024-08-12 11:19] LABS: Alanine Aminotransferase 15 U/L (0-33); Albumin Level 3.7 g/dL (3.5-5.2); Alkaline Phosphatase 105 U/L (35-105); Anion Gap 15.7 (5-19); Aspartate Amino Transferase 19 U/L (0-32); Blood Urea Nitrogen 19 mg/dL (8-23); Calcium 9.2 mg/dL (8.5-10.5); Carbon Dioxide 21 mmol/L (22-29); Chloride 106 mmol/L (98-107); Globulin 3.1 g/dL (1.3-4.6); Glucose 100 mg/dL (65-115); Lactate Dehydrogenase 213 U/L (135-214); Osmolality Calculated 288 mOsm/kg (285-295); Potassium 4.7 mmol/L (3.5-5.1); Sodium 138 mmol/L (136-145); Total Bilirubin 0.4 mg/dL (0.15-1.2); Total Protein 6.8 g/dL (6.6-8.7)
[2024-08-12 14:44] LABS: CA 15-3 11.9 U/mL (0-25)
--- NOTE | 2024-08-12 14:54 | N.ONRAD NP_ITS ---
Radiation Oncology New Patient Visit Patient: Florencia Stearns MR#: [id number] : 1950 Age: 73 Sex: Female Dictated by: Dr. Ajay Stringer Date of Service: 08/12/2024 Referring Physician(s) : Dr. 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 Radiotherapy to date: Course: C1, Treatment Site: RT SUPRACLAV, Ref. ID: RT SUPRACLAV, Energy: 15X, Dose/Fx (cGy): 180, #Fx: / 28, Dose Correction (cGy): 0, Total Dose Delivered (cGy): 5,040, Start Date: 10/22/2016, End Date: 11/29/2016, Elapsed Days: 38 Course: C1, Treatment Site: RT BREAST, Ref. ID: RT BREAST, Energy: 6X, Dose/Fx (cGy): 180, #Fx: , Dose Correction (cGy): 0, Total Dose Delivered (cGy): 5,040, Start Date: 10/22/2016, End Date: 11/29/2016, Elapsed Days: 38 Course: C1, Treatment Site: RT POST AXILLA, Ref. ID: RT POST AX, Energy: 6X, Dose/Fx (cGy): 30, #Fx: , Dose Correction (cGy): 0, Total Dose Delivered (cGy): 840, Start Date: 10/22/2016, End Date: 11/29/2016, Elapsed Days: 38 Course: C1, Treatment Site: RT BREAST BOOST, Ref. ID: RT BREAST, Energy: 15X/6X, Dose/Fx (cGy): 200, #Fx: 5 / 5, Dose Correction (cGy): 0, Total Dose Delivered (cGy): 1,000, Start Date: 11/30/2016, End Date: 12/07/2016 . Chief Complaint / History of Present Illness: 73 year old woman with hx of clinical st II(T2, N1, M0) er/pr + IDC of right breast dx 2016. She underwent NACT with CR. She declined further surgery. She underwent 50 Gy breast and adelaida radiation with 10 Gy boost to region of resection completed 10/2016. Over a one year period she noted progressive nipple inversion and nipple discharge. PET/CT here 02/2024 revealed increased mass in central breast with uptake Also region of uptake in hilum of right lung worrisome for met disease. Right mastectomy and AXLNS here 07/29/2024. Surgery went well and sutures now removed and replaced with steri-strips. Path G3 poorly diff carcinoma 35 mm in size extends to overlying dermis with focal dermal lymphatic invasion. Focal involvement at sup-deep margin. Additional margin taken was negative. Right ax LN revealed adipose only. Tumor now is hormonally negative. Recovering well. Current Medications: Acetaminophen, alendronate Sodium, amitriptyline HCl, anastrozole, cholecalciferol, citalopram Hydrobromide, cyclobenzaprine HCl, diphenhydrAMINE HCl, exemestane, exemestane, fluconazole, hydrocodone-Acetaminophen, lisinopril, lovastatin, neulasta Onpro, pantoprazole Sodium, pepcid, pramipexole Dihydrochloride, prochlorperazine Maleate, protonix, requip, sodium Chloride, trastuzumab, triamcinolone Acetonide, triamcinolone Acetonide. Allergies: Penicillins and Requip. Medical History: Chronic anxiety, chronic headache, degenerative arthritis/degenerative disease of the spine, hyperlipidemia, hypertension, pneumonia x 2. No history of collagen vascular disease. No previous radiation therapy. Surgical History: Colonoscopy in 1988, port placement in 03/2016 and right breast biopsy on 09/13/2016 ([facility]). Family History: Father is having experienced heart attack. Mother is at age 82 having experienced stroke. Sister is alive. Sister is alive. Son is alive. Daughter is alive. Father of heart attack at age 79. Mother of stroke at age 82. There is no history of breast or ovarian cancer in the family. Social History: Last screened on 08/14/2021 - Yes - but has quit for 9 years. Smoked 1.0 pack/day for 10 years (10 pack years). Last screened on 08/14/2021 - Never drank. Patient indicated access to the following support systems: lives with spouse, significant other, family, or friends, lives in own house, supportive family/friends willing to assist with needs, and adequate transportation available for expected visits. Patient indicated the following nutritional habits: regular meals. Patient indicated participation in the following forms of activity: daily activities. Current Complaints / Review of Systems: . Vital Signs: Performed on 08/12/2024 12:40 PM BMI - 26.949 kg/m2 (high), Height - 64 in, Weight - 157 lbs, Temperature - 98.7 f, Pulse - 64 /min, Respiration - 17 /min, O2 Sat - 97 %, Pain - 4, Fatigue - 0 and BP - 127/ 63 mm(hg)(/low). Physical Exam: Robust. No palpable supraclav adenopathy. Right chest wall and axillary incisions healing well. Right arm full range of motion. No arm edema. 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 Lab: none Imaging: See HPI Impression: High risk st II IDC of right breast. S/p initial NACT with bx proven CR. Then received 50 Gy whole breast and 60 Gy to resection bed. Now with local recurrence fully resected at mastectomy. Recommend restaging PET/CT. If no persistent local and no occult met disease seem then monitor without re-irradiation. If occur met disease confirmed in right hilar region with no local chest wall or adelaida relapse, then consider right hilar radiation. Discussed with patient and her spouse and Dr Villa. Plan: Signed by: 08/12/2024 2:53:22 PM <<Signature on File>> Time spent with patient: 60 minutes CPT Code: * CPT Code: *
--- NOTE | 2024-08-28 10:30 | PETR_ITS ---
PROCEDURE INFORMATION: Exam: PET/CT Skull Base to Mid-thigh Exam date and time: 08/28/2024 11:35 AM Age: 73 years old Clinical indication: Condition or disease; Primary cancer: Malignant melanoma of other part of trunk; Follow-up oncological assessment; Prior surgery; Surgery date: <1 month; Surgery type: Melanoma excision, right breast biopsy; HX of breast cancer; Additional info: Melanoma, Dr. Villa would like this done on 08/28/24 LABS AND CLINICAL REPORTS: Glucose: 118 mg/dl Treatment strategy for malignancy (PET staging): Restaging (PS) TECHNIQUE: Imaging protocol: Following at least four-hour fasting and following the injection of radiopharmaceutical, low dose CT images were obtained. Then, PET images were obtained. Attenuation corrected images were constructed using the CT scan. Fused images of PET and CT were reviewed. The standardized uptake values (SUV) reported below are maximum values within a region of interest, expressed in gm/ml. Exam includes orbital meatal line to mid-thigh. SUV normalization method: BodyWeight Radiopharmaceutical: 11.76 mCi F-18 FDG (Fluorodeoxyglucose), IV. Time of imaging post radiopharmaceutical administration: 52 minutes Injection site: left wrist COMPARISON: PT PET skull to thigh SUBS [id number] 02/28/2024 1:21 PM FINDINGS: Brain: Visualized brain has normal physiologic uptake. Pharynx: No abnormal uptake. Larynx: Symmetric uptake is likely physiologic. Lungs, pleura and trachea: No abnormal uptake. Heart: Normal physiologic uptake. Coronary arteries: Mild coronary artery calcification. Mediastinal space: No abnormal uptake. Diaphragm: Small hiatal hernia. Esophagus: Decreased focal uptake at the distal esophagus shows SUV max 4.4, previously 8.3. Liver: No abnormal uptake. Medial left basilar calcified granuloma. Gallbladder and biliary ducts: No abnormal uptake. Cholelithiasis. Pancreas: No abnormal uptake. Spleen: No abnormal uptake. Adrenal glands: No abnormal uptake. Kidneys and ureters: Normal physiologic uptake. Photopenic fluid density left renal cyst. Stomach and bowel: No abnormal uptake. Colonic diverticulosis without findings of diverticulitis. Previous focal uptake at the sigmoid colon has resolved. Vasculature: No abnormal uptake. Heavy systemic atherosclerotic calcification without aortic aneurysm. Lymph nodes: Right hilar FDG uptake shows SUV max 5.2 on axial image 118, previously 6.8. Stable subcarinal node with SUV max 4.5. Left hilar uptake shows SUV max 3.6, previously 4.1. Stable size nonenlarged left cervical level 2 lymph nodes with index showing low-level FDG uptake with SUV max 3.3 on axial image 70, previously 3.8. Skeleton: Degenerative changes along the spine, acromioclavicular joints, and woxny-gyvyxpb-dvru-left hips. Soft tissues: Interval right breast postprocedural change with removal of FDG avid spiculated mass and development of 10.3 x 2.1 cm fluid collection with mild surrounding fat stranding and overlying dermal thickening with low-level FDG uptake. Similar findings of the right axilla with 2.7 x 1.2 cm fluid collection. FDG uptake at right hand, bilateral muscles of mastication, right anterolateral neck musculature, and medial left thigh musculature without underlying CT abnormality is likely benign physiologic activation and/or strain. Small fat containing umbilical hernia. External radiotracer contamination at the left antecubital fossa. METRICS: Mediastinal blood pool: SUV mean 2.4 Liver uptake: SUV mean 2.6 PET/PET skull to thigh SUBS [id number] IMPRESSION: 1. Interval right breast and axillary postprocedural changes with removal of spiculated right breast mass and developed 10.3 cm long right breast fluid collection and 2.7 cm long right axillary fluid collection likely representing seromas. 2. Mildly decreased FDG uptake at mediastinal and omdea-vpqsask-nqda-left hilar lymph nodes as well as left cervical nodes. 3. Decreased distal esophageal FDG uptake. 4. Additional chronic and incidental findings as above.
== END 2024-09-02 23:59 | disposition home or self-care (01) ==
PROVIDERS: PCP Family Medicine; Visit Provider Internal Medicine
DX: Z53.9 Procedure and treatment not carried out, unspecified reason (principal); C43.59 Malignant melanoma of other part of trunk; Z85.3 Personal history of malignant neoplasm of breast
CPT/HCPCS: 36415; 78815; 80053; 83615; 85025; 86300; 99205; 99213; A9552

== ENCOUNTER 2024-10-01 08:45 | Oncology outpatient (recurring) (ONCR) | payer MEDICARE, SELFPAY ==
[2024-10-01 09:13] LABS: Basophils # 0.1 10^3/uL (0.0-0.1); Basophils % 0.9 %; Eosinophils # 0.3 10^3/uL (0.0-0.8); Eosinophils % 4.5 %; Lymphocytes # 2.6 10^3/uL (0.8-4.8); Lymphocytes % 39.9 %; Mean Corpuscular HGB Conc 32.6 g/dL (30-55); Mean Corpuscular Hemoglobin 28.4 pg (27-33); Mean Corpuscular Volume 87.2 fl (85-98); Mean Platelet Volume 8.6 fL (7.4-10.4); Monocytes # 0.6 10^3/uL (0.2-0.9); Monocytes % 8.8 %; Neutrophils % 45.3 %; Nucleated Red Blood Cells % 0 %; Platelet Count 206 10^3/cmm (157-399); Red Blood Count 4.47 10^6/uL (3.85-5.65); Red Cell Distribution Width 13.4 % (12.1-15.1); White Blood Count 6.62 10^3/uL (3.29-11.43)
[2024-10-01 09:32] LABS: Alanine Aminotransferase 17 U/L (0-33); Albumin Level 4.1 g/dL (3.5-5.2); Alkaline Phosphatase 113 U/L (35-105); Anion Gap 16.5 (5-19); Aspartate Amino Transferase 21 U/L (0-32); Blood Urea Nitrogen 20 mg/dL (8-23); Calcium 9.4 mg/dL (8.5-10.5); Carbon Dioxide 23 mmol/L (22-29); Chloride 101 mmol/L (98-107); Creatinine Clr Calc Pharmacy 34.3716; Glucose 113 mg/dL (65-115); Osmolality Calculated 285 mOsm/kg (285-295); Potassium 4.5 mmol/L (3.5-5.1); Sodium 136 mmol/L (136-145); Total Bilirubin 0.3 mg/dL (0.15-1.2); Total Protein 7.1 g/dL (6.6-8.7)
[2024-10-01 10:13] LABS: CA 15-3 14.8 U/mL (0-25)
== END 2024-10-03 23:59 | disposition home or self-care (01) ==
PROVIDERS: PCP Family Medicine; Visit Provider Internal Medicine
DX: C50.111 Malignant neoplasm of central portion of right female breast (principal); Z17.1 Estrogen receptor negative status [ER-]; Z85.820 Personal history of malignant melanoma of skin; Z79.891 Long term (current) use of opiate analgesic; Z90.11 Acquired absence of right breast and nipple; Z92.21 Personal history of antineoplastic chemotherapy
CPT/HCPCS: 36415; 80053; 85025; 86300; 99213

== ENCOUNTER → 2024-10-08 09:10 | Outpatient (BNVA) | payer MEDICARE, SELFPAY | PROVIDERS: PCP Family Medicine; Visit Provider Student in an Organized Health Care Education/Training Program | DX: Z95.828 Presence of other vascular implants and grafts (principal) | CPT/HCPCS: 99214 ==

== ENCOUNTER 2024-10-14 09:29 | Oncology outpatient (recurring) (ONCR) | payer MEDICARE, SELFPAY ==
--- NOTE | 2024-10-14 10:45 | USCV_ITS ---
White, Florencia Age: 73 Gender: F : 1950 Exam Date: 10/14/2024 09:44 Ordering Phys: Michael Villa MD Technologist: DEEP [place] [facility] [place]: Pre melanoma treatment. BP: 145 / 68 HR: 68 Rhythm: Sinus Technical Quality: Adequate MEASUREMENTS (Male / Female) Normal Values 2D ECHO LV Diastolic Diameter PLAX 3.6 cm 4.2 - 5.9 / 3.9 - 5.3 cm IVS Diastolic Thickness 1.3 cm 0.6 - 1.0 / 0.6 - 0.9 cm IVS Systolic Thickness 1.4 cm LVPW Diastolic Thickness 1.0 cm 0.6 - 1.0 / 0.6 - 0.9 cm LVPW Systolic Thickness 1.2 cm LV Ejection Fraction 2D Teich 53.1 % LV Ejection Fraction MOD 4C 53.4 % LV Ejection Fraction MOD 2C 57.5 % LV Ejection Fraction 2C AL 57.7 % RA Systolic Volume 4C AL 21.7 ml RA Systolic Volume 4C MOD 20.5 ml LA Sys Volume AL 24.9 cm cubed LA Sys Volume Index AL 13.5 cm cubed/m squared IVC Diameter 1.3 cm M-MODE LA Ao Ratio MM 1.7 AV Cusp Separation MM 1.7 cm DOPPLER AV Peak Velocity 92.0 cm/s LVOT Peak Velocity 72.0 cm/s MV Peak Velocity 98.0 cm/s MV Area PHT 3.5 cm squared Mitral E to A Ratio 0.9 TR Peak Velocity 79.0 cm/s TR Peak Gradient 2.5 mmHg TV Peak E Velocity 63.0 cm/s PV Peak Velocity 79.0 cm/s FINDINGS Left Ventricle Left ventricle is normal in size. LV systolic function is normal with EF 55 to 60%. No regional wall motion abnormalities are seen. Grade 1 diastolic dysfunction. Right Ventricle Normal in size and function Right Atrium Normal in size Left Atrium Normal in size Mitral Valve Structurally normal mitral valve. Trace mitral regurgitation. Aortic Valve Structurally normal aortic valve. No significant stenosis or regurgitation. Tricuspid Valve Insufficient TR jet to calculate RVSP Pulmonic Valve Not well visualized Pericardium Normal Aorta Normal in size IVC Appears to be normal CONCLUSIONS LV systolic function is normal with EF of 55-60% Grade 1 diastolic dysfunction Trace mitral regurgitation Phil Hernandez MD (Electronically Signed) Final Date: 21 October 2024 11:32 S
== END 2024-11-02 23:59 | disposition home or self-care (01) ==
LOC: ONCMED 09:30 → RAD 09:30 → ONCMED 10-15 09:20
PROVIDERS: PCP Family Medicine; Visit Provider Internal Medicine
DX: C50.111 Malignant neoplasm of central portion of right female breast (principal); C43.59 Malignant melanoma of other part of trunk; R93.1 Abnormal findings on diagnostic imaging of heart and coronary circulation
CPT/HCPCS: 93306

== ENCOUNTER 2024-10-28 07:39 | Day surgery (SDC) | payer MEDICARE, SELFPAY ==
[2024-10-28] VITALS (8 sets, daily range): BP systolic 100–165; BP diastolic 73–88; PULSE 79–96; RESP 12–18; TEMP 36.1–36.4; O2SAT 94–98
--- NOTE | 2024-10-28 07:53 | SC_ITS ---
WS: [id number] Exam: C-arm FL for CVA [id number] Date/Time of Exam: 10/28/2024 7:53 AM Reason For Exam: port placement Limited AP C-arm image of the upper LEFT chest is submitted. The image depicts a left subclavian port probably ending in the region of the lower one third of the SVC.
--- NOTE | 2024-10-28 08:08 | W.PM.OPSUD ---
Surgery/Procedure H&P Update DATE OF PROCEDURE: October 28, 2024 DATE H&P PERFORMED: 10/08/24 H&P UPDATE INFORMATION: I have reviewed H&P completed within last 30 days, I have examined patient prior to procedure and No changes to prior documentation PLANNED PROCEDURE: Operation Date: 10/28/24 09:45 Proposed Procedures p Portacath Placement 65152, C50.111 C43.59 C50.919(Not Applicable) - Dex Greenfield MD
[2024-10-28] MEDS: sodium chloride 0.9% 1,000 ML 30 ML IV (08:34)
--- NOTE | 2024-10-28 08:56 | ANES.PREANE2 ---
Pre-Anesthetic Assessment Height/Weight: Height 1.55 m Weight 72.121 kg Temp Pulse Resp BP Pulse Ox O2 Del Method 97.0 F L 79 18 140/84 98 Room Air 10/28/24 08:01 10/28/24 08:01 10/28/24 08:01 10/28/24 08:01 10/28/24 08:01 10/28/24 08:06 Operation Date: 10/28/24 09:45 Proposed Procedures p Portacath Placement 81656, C50.111 C43.59 C50.919(Not Applicable) - Dex Greenfield MD Familial anesthetic complications: None Was Beta Igor taken within 24 hours: N/A Was Clonidine taken within 24 hours: N/A Last intake: Intake Last Liquid Date 10/27/24 Last Liquid Time 17:00 Last Solid Date 10/27/24 Last Solid Time 17:00 Social No alcohol and No tobacco Exam alert, oriented x 3, clear to auscultation bilaterally and regular rate & rhythm Airway Mallampati: Class I Dentition: chipped CV/HEM Hypertension GI Gastroesophageal Reflux Disease and Hiatal Hernia Anesthetic Plan ASA status: 3 Anesthesia: MAC Risk of > 500 ml blood loss (7ml/kg in children): No Medications/Allergies Home Medications ?Medication ?Instructions ?Recorded ?Confirmed ?Last Taken ?Type citalopram 20 mg tablet 20 mg PO DAILY 01/05/21 10/27/24 10/26/24 History lisinopril 20 mg tablet 20 mg PO DAILY 01/05/21 10/27/24 10/27/24 History acetaminophen 325 mg tablet 325 mg PO QID PRN Pain (Scale 04/09/22 10/27/24 07/28/24 History (Tylenol) Score 1-3) cholecalciferol (vitamin D3) 25 25 mcg PO DAILY 06/11/23 10/27/24 10/27/24 History mcg (1,000 unit) capsule esomeprazole magnesium 20 mg 20 mg PO DAILY 06/11/23 10/27/24 10/27/24 History capsule,delayed release hydrocodone 5 mg-acetaminophen 325 1 tab PO Q6H PRN pain 30 days #60 02/18/24 10/27/24 07/28/24 Rx mg tablet tabs amitriptyline 25 mg tablet 25 mg PO DAILY 07/02/24 10/27/2410/26/25 History Allergies Allergy/AdvReac Type Severity Reaction Status Date / Time No Known Allergies Allergy Verified 10/28/24 08:00 Current Medications Generic Name Dose Route Start Last Admin Trade Name Derrek PRN Reason Stop Dose Admin Sodium Chloride 1,000 mls @ 30 mls/hr 10/28/24 08:00 10/28/24 08:34 Sodium Chloride 0.9% IV 10/29/24 07:59 30 mls/hr .Q24H SHAILA Administration PFSH Anesthesia Medical History History of melanoma Chronic kidney disease Degenerative joint disease of spine Degenerative arthritis Peripheral neuropathy due to chemotherapy Dyslipidemia GERD (gastroesophageal reflux disease) Breast cancer HTN (hypertension) Anxiety Surgical History History of melanoma excision (02/01/21) Wide excision of right upper back melanoma with axillary sentinel lymph node biopsy S/P breast biopsy, right 02/24/2016 and 09/13/2016 History of colonoscopy Social History Smoking and tobacco/nicotine status: former use of tobacco/nicotine Quit status (tobacco/nicotine): has quit using Year quit tobacco: 1999 Former quit date comment: 5 years total use Data Anesthesia Cardiac Studies: Echocardiogram 10/14/24 Echocardiogram Limited Views 07/03/23
[2024-10-28] MEDS: ceFAZolin 2,000 mg SDV 2000 MG IVP (12:06)
[2024-10-28] MEDS: BUPivacaine 0.25% INJ 30 mL INJECTION (12:09)
[2024-10-28] MEDS: lidocaine-epi 1% 20 mL INJ INJECTION (12:09)
[2024-10-28] MEDS: heparin, porcine 1,000 unit/mL INJ 10 mL 6000 UNIT IRRIGATION (12:14)
--- NOTE | 2024-10-28 12:17 | P.OP_ITS ---
Operative Report Date of procedure: October 28, 2024 Pre-op diagnosis: Breast cancer Post-op diagnosis: same Post-op findings: Tip of catheter at atriocaval junction confirmed with intraoperative fluoroscopy Procedure done: Port-A-Cath placement Implants: Port-A-Cath Specimens removed/disposition: N/A Surgeon: Dex Greenfield MD Color Control Supervisor: N/A Anesthesia: MAC Estimated blood loss (mL): 20 Complications: N/A Findings: Tip of catheter at atriocaval junction confirmed with intraoperative fluoroscopy. Attempted right internal jugular access without success given small caliber vessel. Condition: stable Disposition: same day Brief History: 73-year-old female who presented for port placement given history of breast cancer. Discussed risk and benefits and patient agreed to proceed with Port-A-Cath placement. Procedure: Patient was brought into the operating room and a timeout was carried out. Procedure was done under MAC. Patient was placed supine with the arms tucked and in Trendelenburg. Patient was prepped and draped in the usual sterile fashion. Using ultrasound guidance the right internal jugular vein visualized and access was attempted. Access was unsuccessful given small vessel caliber. The left internal jugular was then visualized using ultrasound and it was successfully accessed. A guidewire was then placed down to the atriocaval junction using fluoroscopy. The finder needle was removed and the guidewire was secured. I then turned my attention to creating a pocket over the left chest. Local infiltration was done using plain lidocaine and bupivacaine at the site of the pocket and throughout the tunnel site. I confirmed adequate hemostasis at the pocket. I then proceeded to place the port that was already preassembled and flushed with heparinized saline and the chest pocket. I tunneled the catheter from the chest to the neck at the site where I accessed the internal jugular vein. I measured and adjusted the length of the catheter so it would reach the atrial caval junction. At this point, I used a dilator to dilate the tract into the internal jugular vein using fluoroscopy. I removed the guidewire and proceeded to thread the central venous catheter through the introducer. In the process, I removed the sheath as a completely pushed the catheter into the internal jugular vein. I then confirmed adequate placement of the catheter by performing intraoperative interpretation of fluoroscopy. The tip of the catheter was confirmed to be placed in the atriocaval junction. There were no kinks noted throughout the trajectory of the catheter. I then proceeded to test the port and was satisfied with its functionality. I proceeded to flushed the catheter without any issues. I then hep-locked the port. Skin was closed using deep dermal 3-0 Vicryl, subcuticular 4-0 Monocryl, and Dermabond. Right sided neck incisions were also closed using Dermabond. Patient was then transferred to PACU without any complications.
--- NOTE | 2024-10-28 13:30 | ANE.PACU2 ---
Inpatient post-anesthesia follow up: Airway intact: Yes Vital signs: Temperature 97.5 F Pulse Rate 85 Respiratory Rate 17 Blood Pressure 163/88 Pulse Oximetry 95 Oxygen Delivery Me thod Room Air Oxygen Flow Rate Fraction of Inspir ed Oxygen Hydration adequate: Yes Nausea and vomiting: No Pain level: 1 Mental status: Baseline
== END 2024-10-28 13:30 | disposition home or self-care (01) ==
PROVIDERS: PCP Family Medicine; Visit Provider Student in an Organized Health Care Education/Training Program
PROC: (CPT 36561; principal; 2024-10-28 09:45)
DX: C50.919 Malignant neoplasm of unspecified site of unspecified female breast (principal); K21.9 Gastro-esophageal reflux disease without esophagitis; K44.9 Diaphragmatic hernia without obstruction or gangrene; I12.9 Hypertensive chronic kidney disease with stage 1 through stage 4 chronic kidney disease, or unspecified chronic kidney disease; N18.9 Chronic kidney disease, unspecified; E78.5 Hyperlipidemia, unspecified; G62.9 Polyneuropathy, unspecified; Z87.891 Personal history of nicotine dependence; F41.9 Anxiety disorder, unspecified
CPT/HCPCS: 36561; 76000; 77001; C1788; J0690; J1644; J2704; J3010; J3490; J7030; J9999

== ENCOUNTER 2024-11-02 08:53 | Outpatient (CLI) | payer MEDICARE, SELFPAY ==
[2024-11-02 09:53] LABS: Basophils # 0.1 10^3/uL (0.0-0.1); Basophils % 1.3 %; Eosinophils # 0.2 10^3/uL (0.0-0.8); Eosinophils % 3.8 %; Hematocrit 37.7 % (36-47); Lymphocytes % 47.9 %; Mean Corpuscular HGB Conc 33.2 g/dL (30-55); Mean Corpuscular Volume 84.5 fl (85-98); Monocytes # 0.5 10^3/uL (0.2-0.9); Monocytes % 7.6 %; Neutrophils # 2.48 10^3/uL (1.8-7.7); Neutrophils % 39.1 %; Nucleated Red Blood Cells % 0 %; Platelet Count 185 10^3/cmm (157-399); Red Blood Count 4.46 10^6/uL (3.85-5.65); White Blood Count 6.34 10^3/uL (3.29-11.43)
[2024-11-02 10:13] LABS: Anion Gap 17.4 (5-19); Blood Urea Nitrogen 16 mg/dL (8-23); Calcium 9.5 mg/dL (8.5-10.5); Carbon Dioxide 23 mmol/L (22-29); Chloride 104 mmol/L (98-107); Glucose 111 mg/dL (65-115); Phosphorus 2.8 mg/dL (2.5-4.5); Potassium 4.4 mmol/L (3.5-5.1); Sodium 140 mmol/L (136-145)
[2024-11-02 10:14] LABS: Creatinine Urine, Random 97 mg/dL (28-217); Microalbum Creatinine Ratio Ur 10 mg/dL (0-20); Microalbumin Random Urine 1 ug/dL (0-20)
== END 2024-11-02 08:54 | disposition home or self-care (01) ==
PROVIDERS: PCP Family Medicine; Visit Provider Registered Nurse
DX: N18.32 Chronic kidney disease, stage 3b (principal)
CPT/HCPCS: 36415; 80069; 82044; 85025

== ENCOUNTER → 2024-11-12 09:35 | Outpatient (BNVA) | payer MEDICARE, SELFPAY | PROVIDERS: PCP Family Medicine; Visit Provider Student in an Organized Health Care Education/Training Program | DX: Z98.890 Other specified postprocedural states (principal) | CPT/HCPCS: 99213 ==

== ENCOUNTER 2024-12-02 07:24 | Oncology outpatient (recurring) (ONCR) | payer MEDICARE, SELFPAY ==
[2024-12-02] VITALS (8 sets, daily range): BP systolic 129–180; BP diastolic 73–94; PULSE 74–101; RESP 20–24; TEMP 36.6; O2SAT 90–97
[2024-12-02 07:48] LABS: Hematocrit 37.3 % (36-47); Hemoglobin 11.90 g/dL (11.27-16.99); Mean Corpuscular HGB Conc 31.9 g/dL (30-55); Mean Corpuscular Hemoglobin 27.9 pg (27-33); Mean Corpuscular Volume 87.6 fl (85-98); Nucleated Red Blood Cells % 0 %; Platelet Count 184 10^3/cmm (157-399); Red Blood Count 4.26 10^6/uL (3.85-5.65); White Blood Count 6.69 10^3/uL (3.29-11.43)
[2024-12-02 08:09] LABS: Alanine Aminotransferase 21 U/L (0-33); Albumin Level 3.8 g/dL (3.5-5.2); Alkaline Phosphatase 99 U/L (35-105); Anion Gap 16.8 (5-19); Aspartate Amino Transferase 22 U/L (0-32); Blood Urea Nitrogen 20 mg/dL (8-23); Calcium 9.1 mg/dL (8.5-10.5); Carbon Dioxide 23 mmol/L (22-29); Chloride 107 mmol/L (98-107); Creatinine Clr Calc Pharmacy 37.0000; Globulin 2.8 g/dL (1.3-4.6); Glucose 119 mg/dL (65-115); Osmolality Calculated 298 mOsm/kg (285-295); Potassium 4.8 mmol/L (3.5-5.1); Sodium 142 mmol/L (136-145); Total Protein 6.6 g/dL (6.6-8.7)
[2024-12-02] MEDS: diphenhydrAMINE 50 mg/mL SDV 1mL IVP (09:56)
[2024-12-02] MEDS: pertuzumab 840 MG in sodium chloride 0.9% 250 ML 278 MG IV (10:43)
[2024-12-02] MEDS: TRASTUZUMAB ANNS IV (12:13)
[2024-12-02] MEDS: SODIUM CHLORIDE 0.9% IV (12:13)
[2024-12-02] MEDS: methylPREDNISolone sod succ 40 mg/mL INJ IVP ×2 (13:11→13:28)
[2024-12-02] MEDS: ondansetron 2 mg/ML SDV 2 mL 8 MG IVP (13:15)
--- NOTE | 2024-12-02 13:36 | PC.PHAR ---
1314: received verbal order from Oly for demerol IVP, patient having reaction. removed from pyxis and gave to Tori for administration
--- NOTE | 2024-12-02 13:39 | PC.PHAR ---
after demerol admin, patient continued to shake. spoke to both Apryl and Loren. order to give another 40mg of solumedrol and another 25mg of demerol. removed the demerol from pyxis and retreved the solumedrol from pharmacy. gave to tejinder for administration.
== END 2024-12-02 23:59 | disposition home or self-care (01) ==
PROVIDERS: Nurse Practitioner Family; PCP Family Medicine; Visit Provider Internal Medicine
DX: Z51.12 Encounter for antineoplastic immunotherapy (principal); C50.111 Malignant neoplasm of central portion of right female breast; C43.59 Malignant melanoma of other part of trunk; Z79.899 Other long term (current) drug therapy; Z87.891 Personal history of nicotine dependence; T45.1X5A Adverse effect of antineoplastic and immunosuppressive drugs, initial encounter
CPT/HCPCS: 80053; 82306; 85025; 96361; 96375; 96409; 96413; 99215; J1200; J2175; J2405; J2919; J3490; J7030; J7050; J9306; J9999; Q5117

== ENCOUNTER 2024-12-02 15:05 | Observation (INO) | payer MEDICARE, SELFPAY ==
[2024-12-02 15:16] VITALS: BP 127/71; PULSE 108; RESP 26; TEMP 37.1; O2SAT 98
--- NOTE | 2024-12-02 15:39 | W.ED.ALLEREA ---
HPI - Allergic Reaction General: Chief complaint: Allergic Reaction Stated complaint: Alleric Reaction to chemo rapid o2 drop Time Seen by Provider: 12/02/24 15:26 History of Present Illness: HPI narrative: 73-year-old female presents emergency room with complaints of reaction to chemotherapy. She was at cancer center receiving treatment for breast cancer and had a reaction. They reported for a time her oxygen saturations dropped to 87 to 90%. She was given 650 Tylenol 20 of Pepcid 50 of Benadryl 25 of Demerol 1 DuoNeb treatment Solu-Medrol 80 mg and Zofran 8 mg. She was also given 2 L of normal saline on arrival here she is on 4 L by nasal cannula satting at 100%. She states she feels sleepy but otherwise is much better. Her previous oncology notes reviewed. She denies recent fever sweats chills cough or shortness of breath no chest pain Associated symptoms: Deny abdominal pain Related Data Home Medications ?Medication ?Instructions ?Recorded ?Confirmed citalopram 20 mg tablet 20 mg PO DAILY 01/05/21 12/02/24 lisinopril 20 mg tablet 20 mg PO DAILY 01/05/21 12/02/24 acetaminophen 325 mg tablet 325 mg PO QID PRN Pain (Scale 04/09/22 12/02/24 (Tylenol) Score 1-3) cholecalciferol (vitamin D3) 25 25 mcg PO DAILY 06/11/23 12/02/24 mcg (1,000 unit) capsule esomeprazole magnesium 20 mg 20 mg PO DAILY 06/11/23 12/02/24 capsule,delayed release amitriptyline 25 mg tablet 25 mg PO DAILY 07/02/24 12/02/24 Previous Rx's ?Medication ?Instructions ?Recorded hydrocodone 5 mg-acetaminophen 325 1 tab PO Q6H PRN pain 30 days #60 02/18/24 mg tablet tabs ondansetron HCl 4 mg tablet 4 mg PO Q6H PRN moderate nausea 12/02/24 and vomiting #30 tabs prochlorperazine maleate 10 mg 10 mg PO Q6H PRN Mild nausea and 12/02/24 tablet (Compazine) vomiting #30 tabs Allergies Allergy/AdvReac Type Severity Reaction Status Date / Time No Known Allergies Allergy Verified 12/02/24 07:54 Review of Systems Const: Denies: fever(s) or chills Card: Denies: chest pain Resp: Denies: dyspnea GI: Denies: abdominal pain : Denies: dysuria, urinary frequency or urinary urgency Musc: Denies: neck pain or back pain Skin/Breast: Denies: rash PFSH ED PFSH: Medical History History of melanoma Chronic kidney disease Degenerative joint disease of spine Degenerative arthritis Peripheral neuropathy due to chemotherapy Dyslipidemia GERD (gastroesophageal reflux disease) Breast cancer HTN (hypertension) Anxiety Surgical History History of melanoma excision (02/01/21) Wide excision of right upper back melanoma with axillary sentinel lymph node biopsy S/P breast biopsy, right 02/24/2016 and 09/13/2016 History of colonoscopy Social History Smoking and tobacco/nicotine status: former use of tobacco/nicotine Quit status (tobacco/nicotine): has quit using Year quit tobacco: 1999 Former quit date comment: 5 years total use Physical Exam Const: GENERAL APPEARANCE: cooperative ORIENTATION/CONSCIOUSNESS: Yes awake, Yes oriented to person, Yes oriented to place and Yes oriented to time HENMT: COMMON NORMALS: normocephalic, atraumatic and hearing grossly normal bilaterally HEAD & SCALP: normocephalic and atraumatic Resp: COMMON NORMALS: normal respiratory effort, No retractions, No use of accessory muscles and clear to auscultation bilaterally AUSCULTATION: clear to auscultation bilaterally Cardio: COMMON NORMALS: regular rate, regular rhythm and No murmurs present (Cardio) RATE: regular rate RHYTHM: regular rhythm GI: COMMON NORMALS: Soft to palpation and No hepatosplenomegaly present AUSCULTATION: Yes normoactive bowel sounds PALPATION: Yes Soft to palpation, No Tenderness to palpation present (GI), No Guarding due to palpation present (GI) and Yes No hepatosplenomegaly present Extremity: COMMON NORMALS: normal to inspection, capillary refill normal, no clubbing, cyanosis or edema, no calf tenderness and no pedal edema Neuro: SENSORIUM/ORIENTATION: Yes oriented to person, Yes oriented to place and Yes oriented to time Skin: COMMON NORMALS: no rashes or lesions noted GENERAL SKIN EXAM: no rashes or lesions noted Course Vital Signs: Vital signs: Vital Signs Temperature 98.7 F 12/02/24 15:16 Pulse Rate 104 H 12/02/24 17:34 Respiratory Rate 16 12/02/24 17:02 Blood Pressure 117/57 12/02/24 17:34 Pulse Oximetry 96 12/02/24 17:34 Oxygen Delivery Me thod Nasal Cannula 12/02/24 17:34 Oxygen Flow Rate 2 12/02/24 17:34 MDM - Allergic Reaction Medical Decision Making Patient continues to require 2 L normally she is not on any oxygen. Question of some opacities at the bases although on exam her lungs auscultate normally. Will repeat a chest x-ray with PA and lateral. Admit for observation for allergic reaction. Labs and imaging reviewed with the hospitalist. Medical Records I reviewed the patient's medical records. Lab Data I reviewed the patient's lab results. 12/02/24 16:17 12/02/24 16:17 Radiology Impressions Chest X-Ray 12/02/24 16:08 IMPRESSION: Hazy opacities in the left lung base. These may be due to overlying soft tissue or may represent consolidation. This can be confirmed with a lateral chest radiograph if clinically indicated. Laboratory Results WBC 6.90 10^3/uL (3.29-11.43) 12/02/24 16:17 RBC 3.95 10^6/uL (3.85-5.65) 12/02/24 16:17 Hgb 11.10 g/dL (11.27-16.99) L 12/02/24 16:17 Hct 35.4 % (36-47) L 12/02/24 16:17 MCV 89.6 fl (85-98) 12/02/24 16:17 MCH 28.1 pg (27-33) 12/02/24 16:17 MCHC 31.4 g/dL (30-55) 12/02/24 16:17 RDW 14.4 % (12.1-15.1) 12/02/24 16:17 Plt Count 119 10^3/cmm (157-399) L D 12/02/24 16:17 MPV 9.0 fL (7.4-10.4) 12/02/24 16:17 Neut % (Auto) 93.5 % 12/02/24 16:17 Lymph % (Auto) 4.9 % 12/02/24 16:17 [place] % (Auto) 0.4 % 12/02/24 16:17 Eos % (Auto) 0.3 % 12/02/24 16:17 Baso % (Auto) 0.3 % 12/02/24 16:17 Neut # (Auto) 6.45 10^3/uL (1.8-7.7) 12/02/24 16:17 Lymph # (Auto) 0.3 10^3/uL (0.8-4.8) L 12/02/24 16:17 [place] # (Auto) 0.0 10^3/uL (0.2-0.9) L 12/02/24 16:17 Eos # (Auto) 0.0 10^3/uL (0.0-0.8) 12/02/24 16:17 Baso # (Auto) 0.0 10^3/uL (0.0-0.1) 12/02/24 16:17 Nucleated RBC % (auto) 0 % 12/02/24 16:17 Nucleated RBCs # 0.0 /100WBC 12/02/24 16:17 Specimen Type Arterial 12/02/24 16:15 Sample Site Radial, left 12/02/24 16:15 ABG pH 7.35 (7.35-7.45) 12/02/24 16:15 ABG pCO2 33.2 mmHg (35-45) L 12/02/24 16:15 ABG pO2 57.0 mmHg (80.0-100.0) L 12/02/24 16:15 ABG PO2/FiO2 Ratio 271 12/02/24 16:15 ABG HCO3 18.1 mmol/L (22-26) L 12/02/24 16:15 ABG O2 Saturation 88.3 12/02/24 16:15 ABG Base Excess -6.7 mmol/L (-2.0-2.0) L 12/02/24 16:15 Mckinley Test Pos 12/02/24 16:15 A-a O2 Gradient 6.6 mmHg (5-10) 12/02/24 16:15 Hematocrit 36.2 % (37-47) L 12/02/24 16:15 Hgb O2 Saturation 86.2 % (95-100) L 12/02/24 16:15 Carboxyhemoglobin 0.9 %THgb (0.4-20.1) 12/02/24 16:15 Methemoglobin 1.5 % (0.4-1.5) 12/02/24 16:15 Total Hemoglobin 11.8 g/dL (12-16) L 12/02/24 16:15 Sodium 142.0 mmol/L (131-143) 12/02/24 16:15 Potassium 3.7 mmol/L (3.5-5.0) 12/02/24 16:15 Glucose 137.0 mg/dL (70-115) H 12/02/24 16:15 Ionized Calcium 1.2 mmol/L (1.1-1.4) 12/02/24 16:15 O2 Delivery Device Room air 12/02/24 16:15 FiO2 21.0 % 12/02/24 16:15 Rounding Machine Tender ID [place] 12/02/24 16:15 Sodium 142 mmol/L (136-145) 12/02/24 16:17 Potassium 3.9 mmol/L (3.5-5.1) 12/02/24 16:17 Chloride 110 mmol/L (98-107) H 12/02/24 16:17 Carbon Dioxide 18 mmol/L (22-29) L 12/02/24 16:17 Anion Gap 17.9 (5-19) 12/02/24 16:17 BUN 19 mg/dL (8-23) 12/02/24 16:17 Creatinine 1.2 mg/dL (0.5-0.9) H 12/02/24 16:17 GFR Calculation Not Reportable 12/02/24 16:17 Glucose 130 mg/dL (65-115) H 12/02/24 16:17 Calculated Osmolality 298 mOsm/kg (285-295) H 12/02/24 16:17 Calcium 7.9 mg/dL (8.5-10.5) L 12/02/24 16:17 Total Bilirubin 0.3 mg/dL (0.15-1.2) 12/02/24 16:17 AST 47 U/L (0-32) H 12/02/24 16:17 ALT 41 U/L (0-33) H 12/02/24 16:17 Alkaline Phosphatase 88 U/L (35-105) 12/02/24 16:17 Total Protein 5.8 g/dL (6.6-8.7) L 12/02/24 16:17 Albumin 3.4 g/dL (3.5-5.2) L 12/02/24 16:17 Globulin 2.4 g/dL (1.3-4.6) 12/02/24 16:17 All radiology interpretation(s) finalized by discharge Discharge Plan Discharge Patient Disposition: Placed in Observation Clinical Impression: Allergic reaction, Breast cancer, Hypoxia Coding Level of Care Code ED Diesel Engine Ii Pipe Fitter for Oli Travis
--- NOTE | 2024-12-02 16:08 | XRR_ITS ---
PROCEDURE INFORMATION: Exam: XR Chest Exam date and time: 12/02/2024 4:22 PM Age: 73 years old Clinical indication: Cough and dyspnea; Additional info: Dyspnea/cough TECHNIQUE: Imaging protocol: Radiologic exam of the chest. Views: 1 view. COMPARISON: CT angio chest PE protcl [id number] 08/17/2021 8:50 AM FINDINGS: Tubes, catheters and devices: Left subcutaneous chest port with the catheter tip terminating near the confluence of the left innominate vein and the SVC. Lungs: Hazy opacities in the left lung base. Pleural spaces: Unremarkable. No pleural effusion. No pneumothorax. Heart/Mediastinum: Unremarkable. No cardiomegaly. Bones/joints: Unremarkable. XR/XR chest 1V portable [id number] IMPRESSION: Hazy opacities in the left lung base. These may be due to overlying soft tissue or may represent consolidation. This can be confirmed with a lateral chest radiograph if clinically indicated.
[2024-12-02 16:26] LABS: ABG PCO2 33.2 mmHg (35-45); ABG PH Result 7.35 (7.35-7.45); Alveolar-Arterial Oxygen Gradi 6.6 mmHg (5-10); Arterial Blood Gas Hematocrit 36.2 % (37-47); Blood Gas Allen Test Pos; Blood Gas Operator Identificat WALCI; Blood Gas Sample Site Radial, left; Blood Gas Sample Type Arterial; Carboxyhemoglobin 0.9 %THgb (0.4-20.1); Glucose Level-ABG 137.0 mg/dL (70-115); HCO3 ABG 18.1 mmol/L (22-26); Ionized Calcium Level - ABG 1.2 mmol/L (1.1-1.4); Methemoglobin 1.5 % (0.4-1.5); Oxygen Saturation ABG 88.3; PO2 ABG 57.0 mmHg (80.0-100.0); PO2 FiO2 Ratio Arterial Blood 271; Potassium Level - ABG 3.7 mmol/L (3.5-5.0); Sodium Level - ABG 142.0 mmol/L (131-143)
[2024-12-02 16:27] LABS: Hematocrit 35.4 % (36-47); Hemoglobin 11.10 g/dL (11.27-16.99); Mean Corpuscular HGB Conc 31.4 g/dL (30-55); Mean Corpuscular Hemoglobin 28.1 pg (27-33); Mean Corpuscular Volume 89.6 fl (85-98); Nucleated Red Blood Cells % 0 %; Platelet Count 119 10^3/cmm (157-399); Red Blood Count 3.95 10^6/uL (3.85-5.65); White Blood Count 6.90 10^3/uL (3.29-11.43)
--- NOTE | 2024-12-02 16:27 | ECG_ITS ---
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 Measurements Intervals [place] Rate: 98 P: 33 IA: 139 QRS: -16 QRSD: 78 T: 62 QT: 353 QTc: 452 Interpretive Statements SINUS RHYTHM LOW QRS VOLTAGE IN PRECORDIAL LEADS [QRS DEFLECTION < 1.0 mV IN CHEST LEADS] PATTERN CONSISTENT WITH PULMONARY DISEASE NONSPECIFIC T-WAVE ABNORMALITY Compared to ECG 09/12/2016 13:47:57 Low QRS voltage now present T-wave abnormality now present Myocardial infarct finding no longer present Electronically Signed On 12-03-2024 10:23:42 CDT by Phil Hernandez M.D. [email or web address]
[2024-12-02 16:37] VITALS: BP 116/53; PULSE 98; O2SAT 91
[2024-12-02 16:45] LABS: Alanine Aminotransferase 41 U/L (0-33); Albumin Level 3.4 g/dL (3.5-5.2); Alkaline Phosphatase 88 U/L (35-105); Anion Gap 17.9 (5-19); Aspartate Amino Transferase 47 U/L (0-32); Blood Urea Nitrogen 19 mg/dL (8-23); Calcium 7.9 mg/dL (8.5-10.5); Carbon Dioxide 18 mmol/L (22-29); Chloride 110 mmol/L (98-107); Creatinine Clr Calc Pharmacy 37.0000; Globulin 2.4 g/dL (1.3-4.6); Glucose 130 mg/dL (65-115); Osmolality Calculated 298 mOsm/kg (285-295); Potassium 3.9 mmol/L (3.5-5.1); Sodium 142 mmol/L (136-145); Total Protein 5.8 g/dL (6.6-8.7)
[2024-12-02 17:02] VITALS: PULSE 95; RESP 16; O2SAT 95
[2024-12-02 17:34] VITALS: BP 117/57; PULSE 104; O2SAT 96
--- NOTE | 2024-12-02 17:39 | XRR_ITS ---
PROCEDURE INFORMATION: Exam: XR Chest Exam date and time: 12/02/2024 5:53 PM Age: 73 years old Clinical indication: Dyspnea and other: Hypoxia; Additional info: Dyspnea, hypoxia - abdnormal portable cxr TECHNIQUE: Imaging protocol: Radiologic exam of the chest. Views: 2 views. COMPARISON: CR XR chest 1V portable [id number] 12/02/2024 4:22 PM FINDINGS: Tubes, catheters and devices: Subcutaneous left chest port is unchanged in position. Lungs: Hazy subsegmental left lower lobe opacities. Pleural spaces: Probable trace left pleural effusion. Heart/Mediastinum: Unremarkable. No cardiomegaly. Bones/joints: Unremarkable. XR/XR chest 2V* [id number] IMPRESSION: Hazy subsegmental left lower lobe opacities, differential includes infection versus atelectasis.
--- NOTE | 2024-12-02 17:53 | PM.HP ---
Providers/Chief Complaint Admitting Physician: Dr. Carlson Primary Care Provider: Arben Prado Chief Complaint: Adverse Reaction to chemo - rapid o2 drop History of Present Illness Florencia Stearns is a 73 year old female presenting from her chemo transfusion clinic after adverse reaction to chemo treatment. PMHx is significant for breast cancer. She has had right mastectomy and chemo/radiation, finished in 2012. Per patient, her oncologist has recommended to have further preventative chemo and she started a new regimen with a new agent today. She did not have significant issues with prior chemo infusions, but on this infusion she had rapid onset of hypoxia and tremors. Per patient, she did not receive much of the planned chemo for this infusion. She was brought to the ER from the infusion center for further evaluation. Review of Systems Const: Reports: other (tremor) Eyes: Denies: change in vision ENMT: Denies: throat pain or hoarseness Card: Denies: chest pain or palpitations Resp: Reports: dyspnea GI: Denies: abdominal pain, nausea or vomiting : Denies: difficulty voiding, dysuria, urinary frequency, urinary urgency or urinary hesitancy Musc: Denies: neck pain or back pain Skin/Breast: Denies: rash, pruritus or erythema Neuro: Denies: headache(s) or sensory changes Psych: Denies: anxiety or depression Medications/Allergies Home Medications ?Medication ?Instructions ?Recorded ?Confirmed ?Last Taken ?Type citalopram 20 mg tablet 20 mg PO DAILY 01/05/21 12/02/24 10/26/24 History lisinopril 20 mg tablet 20 mg PO DAILY 01/05/21 12/02/24 10/27/24 History acetaminophen 325 mg tablet 325 mg PO QID PRN Pain (Scale 04/09/22 12/02/24 07/28/24 History (Tylenol) Score 1-3) cholecalciferol (vitamin D3) 25 25 mcg PO DAILY 06/11/23 12/02/24 10/27/24 History mcg (1,000 unit) capsule esomeprazole magnesium 20 mg 20 mg PO DAILY 06/11/23 12/02/24 10/27/24 History capsule,delayed release hydrocodone 5 mg-acetaminophen 325 1 tab PO Q6H PRN pain 30 days #60 02/18/24 12/02/24 07/28/24 Rx mg tablet tabs amitriptyline 25 mg tablet 25 mg PO DAILY 07/02/24 12/02/24 10/26/24 History ondansetron HCl 4 mg tablet 4 mg PO Q6H PRN moderate nausea 12/02/24 12/02/24 Unknown Rx and vomiting #30 tabs prochlorperazine maleate 10 mg 10 mg PO Q6H PRN Mild nausea and 12/02/24 12/02/24 Unknown Rx tablet (Compazine) vomiting #30 tabs Allergies Allergy/AdvReac Type Severity Reaction Status Date / Time No Known Allergies Allergy Verified 12/02/24 07:54 PFSH Acute PFSH: Medical History (Updated 12/02/24 @ 17:56 by Parish Murphy DO) History of melanoma Chronic kidney disease Degenerative joint disease of spine Degenerative arthritis Peripheral neuropathy due to chemotherapy Dyslipidemia GERD (gastroesophageal reflux disease) Breast cancer HTN (hypertension) Anxiety Surgical History History of melanoma excision (02/01/21) Wide excision of right upper back melanoma with axillary sentinel lymph node biopsy S/P breast biopsy, right 02/24/2016 and 09/13/2016 History of colonoscopy Social History Smoking and tobacco/nicotine status: former use of tobacco/nicotine Quit status (tobacco/nicotine): has quit using Year quit tobacco: 1999 Former quit date comment: 5 years total use Vitals/I&O/Wt Last Vital Signs Temp 98.7 F 12/02/24 15:16 Pulse 104 H 12/02/24 17:34 Resp 16 12/02/24 17:02 BP 117/57 12/02/24 17:34 Pulse Ox 96 12/02/24 17:34 O2 Del Method Nasal Cannula 12/02/24 17:34 O2 Flow Rate 2 12/02/24 17:34 Weight last 48 hrs Weight 70.76 kg Physical Exam Const: COMMON NORMALS: no acute distress, average body habitus and no limitations HENMT: COMMON NORMALS: normocephalic and atraumatic Eye: COMMON NORMALS: Equal, round and reactive pupils present and EOMs intact bilaterally Neck/C-Spine: COMMON NORMALS: full ROM and no lymphadenopathy Lymph: LYMPHATIC: no lymphadenopathy noted Chest: OTHER: left sided port with access in place, prior right mastectomy Resp: COMMON NORMALS: normal respiratory effort, No retractions, No use of accessory muscles and clear to auscultation bilaterally Cardio: COMMON NORMALS: regular rate, regular rhythm, No gallops present (Cardio), No murmurs present (Cardio) and No rub (Cardio) GI: COMMON NORMALS: Soft to palpation, non-tender and no masses Extremity: COMMON NORMALS: normal to inspection and full ROM GENERAL: Yes edema (nonpitting in BL LE) Neuro: COMMON NORMALS: patient oriented x3 and CN's II-XII intact bilaterally Psych: COMMON NORMALS: mental status grossly normal, Normal thought process present, normal affect and speech normal Skin: COMMON NORMALS: no rashes or lesions noted, no wounds, turgor normal, no jaundice, no petechiae and no mottling Data 12/02/24 16:17 12/02/24 16:17 A&P Assessment and plan 1. Hypoxia: Plan: 73 year old female presenting with hypoxia Hypoxia following chemo infusion - does not use O2 at home - no history of lung issues - initial CXR with hazy opacities in left lung base - PA/lateral pending - report of ongoing chronic SOB from prior chemo and memory issues. - she was treated in infusion clinic for adverse reaction prior to going to eR HTN - can hold BP meds for now, BP not elevated CKD - unknown stage, GFR unreportable - creatinin at 1.2, appears to be near chronic baseline - monitor H/O BRCA Melanoma - completed right mastectomy, chemo/radiation in 2012 - excision of melanoma on back Peripheral neuropathy - 2/2 prior chemo PPx: SCDs, lovenox Diet: regular Disposition - possibly able to D/C in AM if able to wean O2 and no other issues. PDMP PDMP Reviewed: Not Reviewed Attestations Medical Necessity Statement*: Anticipate observation for hypoxia with possible D/C in AM. Time Spent in Patient Care: 16 - 35 minutes Coding Level of Care Code Acute Code for Chg Fwd Diagnoses Hypoxia R09.02
[2024-12-02 18:08] LABS: Troponin(5th) Baseline 10 ng/L (0-10)
[2024-12-02 18:33] LABS: Glucose Urine UA Negative (Normal); Nitrate Urine Negative (Negative); Specific Gravity, Urine 1.019 (1.005-1.030)
[2024-12-02 18:37] LABS: Add Urine Microscopic? YES
[2024-12-02 18:39] VITALS: BP 101/55; PULSE 96; O2SAT 96
[2024-12-02 18:53] LABS: Troponin 5 2HR 13.63 ng/L (0-10); Troponin 5 2HR Delta 3.63 ABS# (0-10)
[2024-12-02 19:59] VITALS: BP 112/59; PULSE 92; RESP 16; TEMP 36.8; O2SAT 95
--- NOTE | 2024-12-02 21:32 | ECG_ITS ---
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 Measurements Intervals [place] Rate: 94 P: 38 [place]: 153 QRS: -20 QRSD: 78 T: 50 QT: 356 QTc: 446 Interpretive Statements SINUS RHYTHM NONSPECIFIC ST & T-WAVE ABNORMALITY Compared to ECG 12/02/2024 16:27:51 No significant changes Electronically Signed On 12-03-2024 10:28:43 CDT by Phil Hernandez M.D. [email or web address]
[2024-12-02 22:38] LABS: Troponin 5 6HR 8.93 ng/L (0-10)
[2024-12-02 22:53] LABS: Troponin 5 6HR Delta -1.07 ng/L (0-12)
--- NOTE | 2024-12-02 23:22 | ECG_ITS ---
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
[2024-12-02] MEDS: FUROsemide 10 mg/mL SDV 4mL 40 MG IVP (23:53)
[2024-12-03] VITALS: BP 116/65; PULSE 89; RESP 16; TEMP 37; O2SAT 93
[2024-12-03 03:43] VITALS: BP 110/66; PULSE 79; RESP 16; TEMP 36.9; O2SAT 94
[2024-12-03 03:53] LABS: Alanine Aminotransferase 49 U/L (0-33); Albumin Level 3.7 g/dL (3.5-5.2); Alkaline Phosphatase 73 U/L (35-105); Anion Gap 19.1 (5-19); Aspartate Amino Transferase 45 U/L (0-32); Blood Urea Nitrogen 19 mg/dL (8-23); Calcium 8.7 mg/dL (8.5-10.5); Carbon Dioxide 18 mmol/L (22-29); Chloride 107 mmol/L (98-107); Creatinine Clr Calc Pharmacy 37.1179; Globulin 2.9 g/dL (1.3-4.6); Glucose 154 mg/dL (65-115); Osmolality Calculated 295 mOsm/kg (285-295); Potassium 4.1 mmol/L (3.5-5.1); Sodium 140 mmol/L (136-145); Total Protein 6.6 g/dL (6.6-8.7)
[2024-12-03 07:52] VITALS: BP 101/57; PULSE 88; RESP 17; TEMP 36.5; O2SAT 97
--- NOTE | 2024-12-03 09:33 | PC.CHAP ---
Pastoral Care Encounter/Spiritual Assessment Type of Contact [] Declined sales broker visit [] Patient/Family/Request visit [] Outpatient visit [] Follow-up visit [] Physician referral [] Code/Alert [] Routine visit [] Staff referral [] Actively dying [] Patient sleeping [] Family support [] [] Out of room [] Palliative care [] [] Receiving care in room [] Pre-surgical visit [] Trauma [] Long length of stay [] ICU visit [x] Other:Contact precautions. No visit. Relational/Emotional Strength [] Patient feels connected with others/family/visitors/staff [] Distress [] Loneliness/isolation [] Abandonment Spirituality of Patient [] Person of Gretchen [] Attends Confucianism of their Gretchen [] Believes in Prayer [] Reads Bible or Muslim materials [] There are Spiritual issues to be addressed Employment Adjudicator Interventions [] Prayer [] Active listening [] Non-anxious presence [] Spiritual/emotional support [] Crisis/trauma care [] Spiritual counseling [] Bereavement support [] Provided bereavement packet [] Provided Bible/devotional materials [] Provided toy/stuffed animal, coloring book to patient or family member [] Provided Communion [] Anointing/[place] [] Salvation [] Completed spiritual assessment [] Other: Impact on Illness or Injury [] Angry [] Fearful [] Anxious [] Often cries [] Exhaustion [] Unable to work [] Unable to attend mandaeism [] Unable to walk/stand [] Unable to read [] Unable to drive [] Unable to eat/drink [] Unable to sleep [] Unable to be with family [] Patient intubated [] Other: Summary Time spent with patient
--- NOTE | 2024-12-03 10:23 | PM.DCS ---
Discharge Providers Date of Admission: 12/02/24 18:48 Date of Discharge: December 03, 2024 Attending Provider at Admission: Chris Carlson MD Attending Provider at Discharge: Chris Carlson MD Primary Care Provider: Arben Prado Diagnoses at Discharge Discharge Diagnosis 1. Hypoxia: Reason for Visit Reason for Visit: Adverse Reaction to chemo - rapid o2 drop Brief History: 73 year old female presenting with hypoxia Hospital Course Hospital Course Acute Hypoxia following chemo infusion - does not use O2 at home - no history of lung issues - initial CXR with hazy opacities in left lung base - PA/lateral pending - report of ongoing chronic SOB from prior chemo and memory issues. - she was treated in infusion clinic for adverse reaction prior to going to ER - now off O2, no issues. HTN - can hold BP meds for now, BP not elevated CKD - unknown stage, GFR unreportable - creatinin at 1.2, appears to be near chronic baseline - monitor H/O BRCA Melanoma - completed right mastectomy, chemo/radiation in 2012 - excision of melanoma on back - follow up with heme/onc as OP for further treatment recommendations. Peripheral neuropathy - 2/2 prior chemo PPx: SCDs, lovenox Diet: regular Disposition - Discharge planning for today. PDMP Physical Exam Const: COMMON NORMALS: no acute distress, average body habitus, patient oriented x3 and no limitations HENMT: COMMON NORMALS: normocephalic and atraumatic HEAD & SCALP: normocephalic and atraumatic Eye: COMMON NORMALS: Equal, round and reactive pupils present and EOMs intact bilaterally PUPIL: Yes Equal, round and reactive pupils present Neck/C-Spine: COMMON NORMALS: full ROM and no lymphadenopathy Lymph: LYMPHATIC: no lymphadenopathy noted Chest: OTHER: left sided port with access in place, prior right mastectomy Resp: COMMON NORMALS: normal respiratory effort, No retractions, No use of accessory muscles and clear to auscultation bilaterally AUSCULTATION: clear to auscultation bilaterally Cardio: COMMON NORMALS: regular rate, regular rhythm, No gallops present (Cardio), No murmurs present (Cardio) and No rub (Cardio) RATE: regular rate RHYTHM: regular rhythm GI: COMMON NORMALS: Soft to palpation, non-tender and no masses PALPATION: Yes Soft to palpation Extremity: COMMON NORMALS: normal to inspection and full ROM GENERAL: Yes edema (nonpitting in BL LE) Neuro: COMMON NORMALS: patient oriented x3 and CN's II-XII intact bilaterally Psych: COMMON NORMALS: mental status grossly normal, Normal thought process present, normal affect and speech normal SPEECH: Yes normal speech THOUGHT PROCESS: Normal thought process present Skin: COMMON NORMALS: no rashes or lesions noted, no wounds, turgor normal, no jaundice, no petechiae and no mottling GENERAL SKIN EXAM: no rashes or lesions noted and turgor normal Discharge Data Studies Completed and Pending Completed Studies During Hospitalization Category Date Time Status XR chest 1V portable [id number] Stat Exams 12/02/24 16:08 Completed XR chest 2V* [id number] Stat Exams 12/02/24 17:39 Completed Radiology Impressions Chest X-Ray 12/02/24 17:39 IMPRESSION: Hazy subsegmental left lower lobe opacities, differential includes infection versus atelectasis. Laboratory Results WBC 6.90 10^3/uL (3.29-11.43) 12/02/24 16:17 RBC 3.95 10^6/uL (3.85-5.65) 12/02/24 16:17 Hgb 11.10 g/dL (11.27-16.99) L 12/02/24 16:17 Hct 35.4 % (36-47) L 12/02/24 16:17 MCV 89.6 fl (85-98) 12/02/24 16:17 MCH 28.1 pg (27-33) 12/02/24 16:17 MCHC 31.4 g/dL (30-55) 12/02/24 16:17 RDW 14.4 % (12.1-15.1) 12/02/24 16:17 Plt Count 119 10^3/cmm (157-399) L D 12/02/24 16:17 MPV 9.0 fL (7.4-10.4) 12/02/24 16:17 Neut % (Auto) 93.5 % 12/02/24 16:17 Lymph % (Auto) 4.9 % 12/02/24 16:17 [place] % (Auto) 0.4 % 12/02/24 16:17 Eos % (Auto) 0.3 % 12/02/24 16:17 Baso % (Auto) 0.3 % 12/02/24 16:17 Neut # (Auto) 6.45 10^3/uL (1.8-7.7) 12/02/24 16:17 Lymph # (Auto) 0.3 10^3/uL (0.8-4.8) L 12/02/24 16:17 [place] # (Auto) 0.0 10^3/uL (0.2-0.9) L 12/02/24 16:17 Eos # (Auto) 0.0 10^3/uL (0.0-0.8) 12/02/24 16:17 Baso # (Auto) 0.0 10^3/uL (0.0-0.1) 12/02/24 16:17 Nucleated RBC % (auto) 0 % 12/02/24 16:17 Nucleated RBCs # 0.0 /100WBC 12/02/24 16:17 Specimen Type Arterial 12/02/24 16:15 Sample Site Radial, left 12/02/24 16:15 ABG pH 7.35 (7.35-7.45) 12/02/24 16:15 ABG pCO2 33.2 mmHg (35-45) L 12/02/24 16:15 ABG pO2 57.0 mmHg (80.0-100.0) L 12/02/24 16:15 ABG PO2/FiO2 Ratio 271 12/02/24 16:15 ABG HCO3 18.1 mmol/L (22-26) L 12/02/24 16:15 ABG O2 Saturation 88.3 12/02/24 16:15 ABG Base Excess -6.7 mmol/L (-2.0-2.0) L 12/02/24 16:15 [place] Test Pos 12/02/24 16:15 A-a O2 Gradient 6.6 mmHg (5-10) 12/02/24 16:15 Hematocrit 36.2 % (37-47) L 12/02/24 16:15 Hgb O2 Saturation 86.2 % (95-100) L 12/02/24 16:15 Carboxyhemoglobin 0.9 %THgb (0.4-20.1) 12/02/24 16:15 Methemoglobin 1.5 % (0.4-1.5) 12/02/24 16:15 Total Hemoglobin 11.8 g/dL (12-16) L 12/02/24 16:15 Sodium 142.0 mmol/L (131-143) 12/02/24 16:15 Potassium 3.7 mmol/L (3.5-5.0) 12/02/24 16:15 Glucose 137.0 mg/dL (70-115) H 12/02/24 16:15 Ionized Calcium 1.2 mmol/L (1.1-1.4) 12/02/24 16:15 O2 Delivery Device Room air 12/02/24 16:15 FiO2 21.0 % 12/02/24 16:15 Compressor Station Chief Engineer ID [place] 12/02/24 16:15 Sodium 140 mmol/L (136-145) 12/03/24 03:21 Potassium 4.1 mmol/L (3.5-5.1) 12/03/24 03:21 Chloride 107 mmol/L (98-107) 12/03/24 03:21 Carbon Dioxide 18 mmol/L (22-29) L 12/03/24 03:21 Anion Gap 19.1 (5-19) H 12/03/24 03:21 BUN 19 mg/dL (8-23) 12/03/24 03:21 Creatinine 1.2 mg/dL (0.5-0.9) H 12/03/24 03:21 GFR Calculation Not Reportable 12/03/24 03:21 Glucose 154 mg/dL (65-115) H 12/03/24 03:21 Calculated Osmolality 295 mOsm/kg (285-295) 12/03/24 03:21 Calcium 8.7 mg/dL (8.5-10.5) 12/03/24 03:21 Total Bilirubin 0.2 mg/dL (0.15-1.2) 12/03/24 03:21 AST 45 U/L (0-32) H 12/03/24 03:21 ALT 49 U/L (0-33) H 12/03/24 03:21 Alkaline Phosphatase 73 U/L (35-105) 12/03/24 03:21 Troponin T Baseline 10 ng/L (0-10) 12/02/24 16:17 Troponin T 120 Minute 13.63 ng/L (0-10) H 12/02/24 18:10 Delta Troponin T 3.63 ABS# (0-10) 12/02/24 18:10 Troponin T Hi Sens 6Hr 8.93 ng/L (0-10) 12/02/24 21:42 Troponin T Hi Sens 6Hr Delta -1.07 ng/L (0-12) L 12/02/24 21:42 Total Protein 6.6 g/dL (6.6-8.7) 12/03/24 03:21 Albumin 3.7 g/dL (3.5-5.2) 12/03/24 03:21 Globulin 2.9 g/dL (1.3-4.6) 12/03/24 03:21 Urine Color Yellow (Yellow) 12/02/24 18:20 Urine Appearance Clear (CLEAR) 12/02/24 18:20 Urine pH 5.5 (5-7) 12/02/24 18:20 Ur Specific [place] 1.019 (1.005-1.030) 12/02/24 18:20 Urine Protein Negative (Negative) 12/02/24 18:20 Urine Glucose (UA) Negative (Normal) 12/02/24 18:20 Urine Ketones Negative (Negative) 12/02/24 18:20 Urine Blood Negative (Negative) 12/02/24 18:20 Urine Nitrate Negative (Negative) 12/02/24 18:20 Urine Bilirubin Negative (Negative) 12/02/24 18:20 Urine Urobilinogen 1.0 mg/dL (Negative) 12/02/24 18:20 Ur Leukocyte Esterase 2+ (Negative) A 12/02/24 18:20 Urine RBC 0-2 /hpf (0-2) 12/02/24 18:20 Urine WBC 6-10 /hpf (0-5) 12/02/24 18:20 Ur Squamous Epith Cells 6-10 /hpf (0-5) 12/02/24 18:20 Amorphous Sediment Not Reportable 12/02/24 18:20 Urine Bacteria 1+ /hpf (NONE) H 12/02/24 18:20 Hyaline Casts 0.81 /lpf 12/02/24 18:20 Vitals Last Vital Signs Temp 97.7 F 12/03/24 07:52 Pulse 88 12/03/24 07:52 Resp 17 12/03/24 07:52 BP 101/57 12/03/24 07:52 Pulse Ox 97 12/03/24 07:52 O2 Del Method Nasal Cannula 12/03/24 07:52 O2 Flow Rate 2 12/02/24 19:59 Discharge Plan Discharge Patient Disposition: Home Condition: Stable Prescriptions: Continued lisinopril 20 mg tablet 20 mg PO QAM citalopram 20 mg tablet 20 mg PO QPM cholecalciferol (vitamin D3) 25 mcg (1,000 unit) capsule 25 mcg PO QAM ondansetron HCl 4 mg tablet 4 mg PO Q6H PRN (Reason: moderate nausea and vomiting) Qty: 30 3RF prochlorperazine maleate [Compazine] 10 mg tablet 10 mg PO Q6H PRN (Reason: Mild nausea and vomiting) Qty: 30 3RF acetaminophen [Tylenol] 325 mg tablet 325 mg PO QID PRN (Reason: Pain (Scale Score 1-3)) oxycodone 5 mg tablet 5 mg PO Q6H PRN (Reason: Pain) amitriptyline 25 mg tablet 25 mg PO BEDTIME Discharge Order = DC NOW: Discharge Order (Routine); Ordered 12/03/24 Ordered By: Chris Carlson Referrals: Arben Prado [Primary Care Provider, Family Practice] Discharge Diet: Usual diet Discharge Activity: Resume usual activity Patient Instructions: Opioid Safety, Patient Portal & Lee Instructions Discharge Attestations Time Spent in Discharge Care*: greater than 30 min Quality Metrics Clinical Quality Measures [ No reported AMI, CVA or VTE this stay] Coding Level of Care Code Acute Code for Chg Fwd Diagnoses Hypoxia R09.02
--- NOTE | 2024-12-03 10:35 | PC.NURSE ---
Discharge Note Patient discharged to home via private vehicle accompanied by . Discharge instructions reviewed with patient and/or employee's representative. Mobile pharmacy medications and/or prescriptions provided. Belongings/home medications returned.
[2024-12-03 10:36] VITALS: BP 101/57; PULSE 88; RESP 17; TEMP 36.5; O2SAT 97
[2024-12-03 11:23] VITALS: BP 127/59; PULSE 77; RESP 18; TEMP 36.5; O2SAT 98
--- NOTE | 2024-12-03 11:38 | PC.NURSE ---
Flushed patients PAC with Heparin and saline and removed line. Placed 2x2 and tegaderm.
--- OUTSIDE RECORDS SUMMARY | 2024-12-04 02:51 | XMS_ITS ---
Author Organization [facility] Address [address] [facility] [place] [place] [address] Care Team Providers Care Commercial Diver Name Role Phone Arben Prado MD Primary Care Provider [phone] Active Problems Problem Noted Date Diagnosed Date Acute colitis 09/24/2018 Nausea and vomiting 09/24/2018 Acute diarrhea 09/24/2018 ANTOINETTE (acute kidney injury) 09/24/2018 Anxiety state 07/31/2017 Hyperlipidemia 10/23/2016 Malignant neoplasm of right female breast 2016 Recurrent major depressive disorder, in full rem ission 10/11/2016 Benign hypertension 12/15/2015 Current Treatment and Therapy Plans No current plan information found. Past Treatment and Therapy Plans No past plan information found. Lifetime Dose Tracking * Chemical Lifetime Dose Automatic Entry Manual Entr y Effective Dose 11.3 mSv 11.3 mSv 0 mSv Total DLP 621 DLP 621 DLP 0 DLP CTDIvol Max 17.8 mGy 17.8 mGy 0 mGy CTDIvol Min 17.8 mGy 17.8 mGy 0 mGy Resolved Problems Problem Noted Date Diagnosed Date Resolved Date Bacteremia 04/04/2013 02/06/2015 Pneumonia, organism unspecified(486) 04/03/2013 02/06/2015
--- OUTSIDE RECORDS SUMMARY | 2024-12-04 02:51 | XMS_ITS | Encounter Summary ---
Author Organization [facility] Address [address] [place] [address] Care Team Providers Care Cdl Driver Name Role Phone Arben Prado MD Primary Care Provider [phone] [phone] Encounter Details Date Type Department Care Team (Late Contact Info) Description 02/23/2021 Lab Requisition [facility] [place] [address] [address] Steve Oglesby NP [address] [facility] [address] [place] [address] Social History Tobacco Use Types Packs/Day Years Used Date Smoking Tobacco: Former Cigarettes Q uit: 03/26/2013 Smokeless Tobacco: Never Alcohol Use Standard Drinks/Week Comments No 0 (1 standard drink = 0.6 oz pur e alcohol) Comments No Sex and Gender Information Value Date Recorded Sex Assigned at Not on file Legal Sex Female 3:34 PM TELEVISION 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 No / Unsure 02/23/2021 8:39 AM CDT documented as of this encounter Plan of Treatment Upcoming Encounters Date Type Department Care Team (Late Contact Info) Description 12/09/2024 3:40 PM CDT Office Visit [facility] [place] [address] [facility] [address] [place] [phone] Reena Mary FNP [address] [phone] documented as of this encounter Procedures Procedure Name Priority Date/Time Associated Diagnosis Comments CBC WITH DIFFERENTIAL Stat 02/23/2021 12:30 PM CDT C-REACTIVE PROTEIN Stat 02/23/2021 12 :30 PM CDT BRAIN NATRIURETIC PEPTIDE, BNP OR PROBNP Stat 02/23/2021 12:30 PM CDT COMPREHENSIVE METABOLIC PANEL Stat 02/23/2021 12:30 PM CDT documented in this encounter Results * (ABNORMAL) C-REACTIVE PROTEIN (02/23/2021 12:30 PM CDT) CRP 9.1(H) <5.0 mg/L 02/23/2021 1:00 PM CDT [facility] Blood BLOOD SPECIMEN / Unknown Venipuncture / Unknown 02/23/2021 12:30 PM CDT 02/23/2021 12:39 PM CDT tSeve Oglesby MULTIPLE PUNCH PRESS OPERATOR CHEMISTRY ORDERABLES Final R esult [facility] # [id number] [address] [address] * (ABNORMAL) COMPREHENSIVE METABOLIC PANEL (02/23/2021 12:30 PM CDT) SODIUM 137 136 - 145 mmol/L 02/23/2021 1:00 PM CDT [facility] POTASSIUM 4.1 3.5 - 5.1 mmol/L 02/23/2021 1:00 PM CDT [facility] CHLORIDE 101 98 - 107 mmol/L 02/23/2021 1:00 PM CDT [facility] CO2 21(L) 22 - 29 mmol/L 02/23/2021 1:00 PM [facility] CALCIUM 9.7 8.8 - 10.2 mg/dL 02/23/2021 1:00 PM [facility] BUN 20 8 - 23 mg/dL 02/23/2021 1:00 PM [facility] CREATININE 1.23(H) 0.51 - 0.95 mg/dL 02/23/2021 1:00 PM [facility] Comment:The GFR result is no t clinically significant on patients <18 or >70 years of age. GLUCOSE 104(H) 74 - 99 mg/dL 02/23/2021 1:00 PM [facility] TOTAL PROTEIN 7.6 6.6 - 8.7 g/dL 02/23/2021 1:00 PM [facility] ALBUMIN 4.2 3.5 - 5.2 g/dL 02/23/2021 1:00 PM [facility] BILIRUBIN TOTAL 0.4 <=1.2 mg/dL 02/23/2021 1:00 PM [facility] ALKALINE PHOSPHATASE 120(H) 35 - 104 U/L 02/23/2021 1:00 PM [facility] AST 20 10 - 35 U/L 02/23/2021 1:00 PM [facility] ALT 19 10 - 35 U/L 02/23/2021 1:00 PM [facility] GFR 43 mL/min/1.7 3 sq meter 02/23/2021 1:00 PM [facility] Comment: eGFR has not been validated for use in the elderly (> 70 years of age), women, patients with serious co-morbid conditions, or persons with extremes of body size or muscle mass and should also be interpreted with caution in patients with acute kidney failure, dialysis dependent patients, patients reporting exceptional dietary intake (e.g. vegetarian diet, high protein diets, creatine supplementation), and patients with severe liver disease. Based on National Kidney Disease Education Program If patient is , please refer to the GFR result. GFR, 52 mL/min/1.7 3 sq meter 02/23/2021 1:00 PM [facility] ANION GAP 15 12 - 20 mmol/L 02/23/2021 1:00 PM CDT [facility] Blood BLOOD SPECIMEN / Unknown Venipuncture / Unknown 02/23/2021 12:30 PM CDT 02/23/2021 12:39 PM CDT Steve Oglesby NP CHEMISTRY ORDERABLES Final R esult [facility] CLIA # [id number] [address] [place] [address] * (ABNORMAL) CBC WITH DIFFERENTIAL (02/23/2021 12:30 PM CDT) WBC 9.1 4.0 - 10.0 K/uL 02/23/2021 12:53 PM [facility] RBC 4.59 3.93 - 5.22 M/uL 02/23/2021 12:53 PM [facility] HEMOGLOBIN 13.3 11.2 - 15.7 g/dL 02/23/2021 12:53 PM [facility] HEMATOCRIT 40.7 34.1 - 44.9 % 02/23/2021 12:53 PM [facility] MCV 88.7 79.4 - 94.8 fL 02/23/2021 12:53 PM [facility] MCH 29.0 25.6 - 32.2 pg 02/23/2021 12:53 PM [facility] MCHC 32.7 32.2 - 35.5 g/dL 02/23/2021 12:53 PM [facility] RDW 13.2 11.0 - 14.5 % 02/23/2021 12:53 PM [facility] RDW-STDEV 43.1 36.9 - 56.9 fL 02/23/2021 12:53 PM [facility] PLATELETS 230 163 - 337 K/uL 02/23/2021 12:53 PM [facility] MPV 8.4(L) 10.0 - 14.8 fL 02/23/2021 12:53 PM CDT [facility] NEUTROPHILS 54 34 - 71 % 02/23/2021 12:53 PM CDT [facility] LYMPHOCYTES 37 19 - 52 % 02/23/2021 12:53 PM CDT [facility] MONOCYTES 7 5 - 13 % 02/23/2021 12:53 PM CDT [facility] EOSINOPHILS 1 1 - 6 % 02/23/2021 12:53 PM CDT [facility] BASOPHILS 1 0 - 1 % 02/23/2021 12:53 PM CDT [facility] IMMATURE GRANULOCYTES 0 % 02/23/2021 12:53 PM CDT [facility] NEUTROPHIL ABSOLUTE 4.85 1.56 - 6.13 K/uL 02/23/2021 12:53 PM CDT [facility] LYMPHOCYTE ABSOLUTE 3.36 1.20 - 3.40 K/uL 02/23/2021 12:53 PM CDT [facility] MONOCYTE ABSOLUTE 0.63(H) 0.24 - 0.36 K/uL 02/23/2021 12:53 PM CDT [facility] EOSINOPHIL ABSOLUTE 0.12 0.04 - 0.36 K/uL 02/23/2021 12:53 PM CDT [facility] BASOPHILS ABSOLUTE 0.08 0.01 - 0.08 K/uL 02/23/2021 12:53 PM CDT [facility] IMMATURE GRANULOCYTES ABSOLUTE 0.04 K/uL 02/23/2021 12:53 PM T [facility] Blood BLOOD SPECIMEN / Unknown Venipuncture / Unknown 02/23/2021 12:30 PM CDT 02/23/2021 12:39 PM CDT Steve Oglesby NP HEMATOLOGY ORDERABLES Final Result [facility] CLIA # [id number] [address] [place] [address] * (ABNORMAL) BRAIN NATRIURETIC PEPTIDE, BNP OR PROBNP (02/23/2021 12:30 PM CDT) PROBNP, N TERMINAL 147(H) 0 - 125 pg/mL 02/23/2021 12:59 PM CDT [facility] Blood BLOOD SPECIMEN / Unknown Venipuncture / Unknown 02/23/2021 12:30 PM CDT 02/23/2021 12:39 PM CDT Steve Oglesby MULTIPLE PUNCH PRESS OPERATOR CHEMISTRY ORDERABLES Final R esult [facility] CLIA # [id number] [address] [place] [address] documented in this encounter Visit Diagnoses Not on filedocumented in this encounter Additional Health Concerns Infection Onset Date Last Indicated Resolved Time Influenza 01/24/2023 01/24/2023 05/16/2023 1:16 AM TELEVISION REPAIRER Assessment Noted Time PHQ-9 Depression Total Score: 1 08/02/19 21 8:00 AM CDT documented as of this encounter Care Teams Cdl Driver Relationship Specialty Start Date End Date Arben Prado MD [address] [facility] [place] [phone] PCP - General Family Practice 03/16/22 documented as of this encounter
--- OUTSIDE RECORDS SUMMARY | 2024-12-04 02:51 | XMS_ITS | Encounter Summary ---
Author Organization [facility] Address [address] [place] [address] Phone Care Team Providers Care Hospital Personnel Director Name Role Phone Diane Mcmullen MD Primary Care Provider [phone] Encounter Details Date Type Department Care Team (Late st Contact Info) Description 11/08/2021 Orders Only [facility] [address] [facility] [address] [place] [address] Decreased renal function Social History Tobacco Use Types Packs/Day Years Used Date Smoking Tobacco: Never Assessed Comments Unknown Sex and Gender Information Value Date Recorded Sex Assigned at Not on file Legal Sex Female 1:19 PM EDT Gender Identity Not on file Sexual Orientation Not on file documented as of this encounter Plan of Treatment Upcoming Encounters Date Type Department Care Team (Late st Contact Info) Description 04/27/2025 2:00 PM BREAKER OFF Office Visit [facility] [address] [place] [address] Ashleigh Alba NP [address] [place] [address] documented as of this encounter Visit Diagnoses Diagnosis Decreased renal function documented in this encounter Care Teams Hospital Personnel Director Relationship Specialty Start Date End Date Diane Mcmullen MD [address] [phone] PCP - General Family Medicine 11/08/21 documented as of this encounter
--- OUTSIDE RECORDS SUMMARY | 2024-12-04 02:51 | XMS_ITS | Encounter Summary ---
Author Organization [facility] Address [address] [place] [address] Care Team Providers Care A/C Tech Name Role Phone Arben Prado MD Primary Care Provider [phone] Encounter Details Date Type Department Care Team (Latest Contact Info) Description 05/28/2006 Outpatient Historical [facility] Family Medicine- [address] [place] [address] Raul Padilla, [place] NO ADDRESS ON FILE Contact Dermatitis and Other Eczema, due to Unspecified Cause (Primary Dx); Other Diseases of Nasal Cavity and Sinuses Social History Tobacco Use Types Packs/Day Years Used Date Smoking Tobacco: Never Assessed Comments Unknown Sex and Gender Information Value Date Recorded Sex Assigned at Not on file Legal Sex Female 6:22 AM ACCOUNT LEADER Gender Identity Not on file Sexual Orientation Not on file documented as of this encounter Plan of Treatment Not on file documented as of this encounter Visit Diagnoses Diagnosis Contact dermatitis and other eczema, due to unspecified cause- Primary Other diseases of nasal cavity and sinuses(478.19) Other diseases of nasal cavity and sinuses documented in this encounter Care Teams A/C Tech Relationship Specialty Start Date End Date Arben Prado MD [address] [facility] [address] [place] [address] PCP - General Family Practice 02/18/18 documented as of this encounter
--- OUTSIDE RECORDS SUMMARY | 2024-12-04 02:51 | XMS_ITS | Encounter Summary ---
Author Organization [facility] Address [address] [place] [address] Care Team Providers Care Gas Brazer Name Role Phone Arben Prado MD Primary Care Provider [phone] Encounter Details Date Type Department Care Team (Latest Contact Info) Description 08/15/2005 Outpatient Historical [facility] Family Medicine- [address] [place] [address] Raul Padilla, [place] NO ADDRESS ON FILE Lumbago (Primary Dx); Unspecified Acute Reaction to Stress; Anxiety State, Unspecified Social History Tobacco Use Types Packs/Day Years Used Date Smoking Tobacco: Never Assessed Comments Unknown Sex and Gender Information Value Date Recorded Sex Assigned at Not on file Legal Sex Female 6:22 AM LEARNING AND DEVELOPMENT 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
--- OUTSIDE RECORDS SUMMARY | 2024-12-04 02:51 | XMS_ITS | Encounter Summary ---
Author Organization [facility] Address [address] [place] [address] Care Team Providers Care Montessori Lead Teacher Name Role Phone Arben Prado MD Primary Care Provider [phone] Encounter Details Date Type Department Care Team (Latest Contact Info) Description 02/26/2006 Outpatient Historical [facility] Family Medicine- [address] [place] [address] Raul Padilla, [place] NO ADDRESS ON FILE Acute Sinusitis, Unspecified (Primary Dx); Headache Social History Tobacco Use Types Packs/Day Years Used Date Smoking Tobacco: Never Assessed Comments Unknown Sex and Gender Information Value Date Recorded Sex Assigned at Not on file Legal Sex Female 6:22 AM DRAWING KILN SUPERVISOR Gender Identity Not on file Sexual Orientation Not on file documented as of this encounter Plan of Treatment Not on file documented as of this encounter Visit Diagnoses Diagnosis Acute sinusitis, unspecified- Primary Headache(784.0) Headache documented in this encounter Care Teams Montessori Lead Teacher Relationship Specialty Start Date End Date Arben Prado MD [address] [facility] [address] [place] [address] PCP - General Family Practice 02/18/18 documented as of this encounter
--- OUTSIDE RECORDS SUMMARY | 2024-12-04 02:51 | XMS_ITS | Clinical Summary ---
Author Organization [facility] [place] Address [address] [place] [address] Care Team Providers Care Associate Professor Of Sociology Name Role Phone Arben Prado MD Primary Care Provider +1 -[phone] Allergies Active Allergy Reactions Criticality Noted Date Comments Penicillins Rash Low 06/08/2011 Pcbicgj-Mbe-Arp Reductase Inhibitors Muscle Pain Low 09/24/2018 Medications pantoprazole (PROTONIX) 40 mg Tablet, Delayed Release (E.C.) Take 40 mg by mouth daily. Active OTHER Vitamin d 3 25mcg daily . Active diphenhydrAMINE (BENADRYL) 25 mg tablet Take 25 mg by mouth every 6 hours as needed for Allergies. Active HYDROcodone-aceta minophen (NORCO) 5-325 mg tablet Take 1 Tablet by mouth every 4 hours as needed for Pain, Moderate. Active acetaminophen (TYLENOL) 500 mg tablet Take 1 Tablet (500 mg) by mouth every 6 hours as needed for Pain. 60 Tablet 9 Active prochlorperazine maleate (COMPAZINE) 5 mg tablet Take 1 Tablet (5 mg) by mouth every 6 hours as needed for Nausea/Emesis. 45 Tablet 9 Active exemestane (AROMASIN) 25 mg Tablet Take 1 Tablet by mouth daily. 9 Active fluticasone propionate (FLONASE) 50 mcg/spray [place], Suspension nasal inhaler Administer 2 Sprays in each nostril daily. 16 Gram 1 9 Active cyclobenzaprine (FLEXERIL) 10 mg tabletIndications :Muscle spasm Take 1 Tablet (10 mg) by mouth nightly as needed for Discomfort or Spasm. 30 Tablet 3 0 Active amitriptyline (ELAVIL) 25 mg tablet TAKE 1 TABLET BY MOUTH ONCE DAILY AT BEDTIME 90 Tablet 1 1 Active lovastatin (MEVACOR) 10 mg tablet Take 1 Tablet (10 mg) by mouth daily with supper. 30 Tablet 5 1 Active citalopram (CeleXA) 20 mg tabletIndications :Recurrent major depressive disorder, in full remission TAKE 1 TABLET BY MOUTH ONCE DAILY AT BEDTIME 90 Tablet 1 Active lisinopriL (PRINIVIL) 20 mg tabletIndications :Benign hypertension TAKE 1 TABLET BY MOUTH ONCE DAILY 30 Tablet 1 Active Active Problems Problem Noted Date Diagnosed Date Acute colitis 09/24/2018 Nausea and vomiting 09/24/2018 Acute diarrhea 09/24/2018 ANTOINETTE (acute kidney injury) 09/24/2018 Anxiety state 07/31/2017 Hyperlipidemia 10/23/2016 Malignant neoplasm of right female breast 2016 Recurrent major depressive disorder, in full rem ission 10/11/2016 Benign hypertension 12/15/2015 Resolved Problems Problem Noted Date Diagnosed Date Resolved Date Bacteremia 04/04/2013 02/06/2015 Pneumonia, organism unspecified(486) 04/03/2013 02/06/2015 Immunizations Immunization Administration Dates Next Due (TDVAX)(7 YRS UP) TETANUS AN D DIPHTHERIA TOXOIDS, ADSORBED (2 LF OF TETANUS TOXOID AND 2 LF OF DIPHTHERIA TOXOID), 0.5ML (PF), IM 08/29/2004 Family History Medical History Relation Name Comments Heart Disease Father Unknown Maternal Grandfather Unknown Maternal Grandmother Stroke Mother Heart Disease Paternal Grandfather Unknown Paternal Grandmother Diabetes Sister Healthy Sister Hypertension Sister Breast Cancer Neg Hx Colon Cancer Neg Hx Relation Name Status Comments Father Maternal Grandfather Maternal Grandmother Mother Paternal Grandfather Paternal Grandmother Sister Alive Social History Tobacco Use Types Packs/Day Years Used Date Smoking Tobacco: Former Cigarettes 0.5 16 1 05/26/1996 - 03/26/2013 Smokeless Tobacco: Never Tobacco Cessation:Ready to Q uit: No; Counseling Given: Yes Alcohol Use Standard Drinks/Week Comments No 0 (1 standard drink = 0.6 oz pur e alcohol) Comments No Sex and Gender Information Value Date Recorded Sex Assigned at Not on file Legal Sex Female 6:22 AM AUTO DETAILER Gender Identity Not on file Sexual Orientation Not on file Occupation Industry Job Start Date Job End Date Not on file Not on file Not on file Not on file Last Filed Vital Signs Vital Sign Reading Time Taken Comments Blood Pressure 117/78 08/01/2020 8:12 AM CDT Pulse 69 08/01/2020 8:12 AM CDT Temperature 36.3 C (97.4 F) 08/01/2020 8:12 AM CDT Respiratory Rate 17 08/01/2020 8:12 AM CDT Oxygen Saturation 98% 08/01/2020 8:12 AM CDT Inhaled Oxygen Concentration - - Weight 79 kg (174 lb 3.2 oz) 08/01/2020 8:12 AM CDT Height 154.9 cm (5' 1 ) 08/01/2020 8:12 AM CDT Body Mass Index 32.91 08/01/2020 8:12 AM CDT Plan of Treatment Health Maintenance Due Date Last Done Comments FIT/ DNA Q 3 YEARS (AUTO ORDER) 12/06/1967 FLEX SIG/CT COLONOGRAPHY Q 5 YEARS (AUTO ORDER) 12/06/1967 FIT-DNA Q 3 years 1994 Flex Sig/CT Colonography Q 5 years 1994 PNEUMOCOCCAL VACCINE 50+ YEA RS (1 of 1 - PCV) 12/06/1999 ZOSTER VACCINE (1 of 2) 12/06/1999 FIT/FOBT Q 1 YEAR (AUTO ORDER) 01/09/2001 01/10/2000 FIT/FOBT Q 1 year 01/09/2001 01/10/2000 DTAP/TDAP/TD VACCINES (1 - Tdap) 08/30/2004 08/30/19 05 RSV VACCINE (60+ or ) (1 - Risk 60-74 years 1-dose series) 2009 OSTEOPOROSIS SCREENING 2014 Medicare Advantage (OR) Preventative Visit/Annual Wellness Visit 05/06/2024 10/11/2016, 06/17/2015 BREAST CANCER SCREENING 06/13/2024 06/13/19 24, 03/05/2022, 07/28/2021, Additional history exists INFLUENZA VACCINE (#1) 2024 1, 06/01/2019, 06/01/2019, Additional history exists COLORECTAL CANCER SCREENING (AUTO ORDER) 07/07/2034 07/07/2024 COLORECTAL SCREENING 07/07/2034 07/07/2024 Colorectal Cancer Screening (AUTO ORDER) 07/07/2034 Colorectal Cancer Screening 07/07/2034 Procedures Procedure Name Priority Date/Time Associated Diagnosis Comments MAMMO DIAGNOSTIC BILATERAL W OR WO CAD Routine 05/12/2019 from Last 3 Months or Most Recently Relevant to Health Maintenance Results * MAMMO DIAGNOSTIC BILATERAL W OR WO CAD (05/12/2019) Anatomical Region Laterality Modality Breast Bilateral Mammography us Abstract Spg Provider MAMMO ORDERABLES Final Res ult from Last 3 Months or Most Recently Relevant to Health Maintenance Insurance [facility] [employer] M[employer] PPO D-SNP Advance Directives For more information, please contact: [phone] * Full Code (Latest Code Status on File) Date Activated Date Inactivated Comments 09/24/2018 10:35 AM 09/28/2018 5:53 PM * Full Code Date Activated Date Inactivated Comments 04/03/2013 4:14 AM 04/05/2013 4:09 PM Care Teams Associate Professor Of Sociology Relationship Specialty Start Date End Date Arben Prado MD [address] [facility] [address] [place] [address] PCP - General Family Practice 02/18/18
--- OUTSIDE RECORDS SUMMARY | 2024-12-04 02:51 | XMS_ITS | Encounter Summary ---
Author Organization [facility] Address [address] [place] [address] Care Team Providers Care Oracle Ascp Consultant Name Role Phone Arben Prado MD Primary Care Provider +1 [phone] Encounter Details Date Type Department Care Team (Latest Contact Info) Description 03/22/1998 Outpatient Historical [facility] Family Medicine- [address] [place] [address] Yamil Palma, NO ADDRESS ON FILE Acute sinusitis, unspecified (Primary Dx) Social History Tobacco Use Types Packs/Day Years Used Date Smoking Tobacco: Never Assessed Comments Unknown Sex and Gender Information Value Date Recorded Sex Assigned at Not on file Legal Sex Female 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
--- OUTSIDE RECORDS SUMMARY | 2024-12-04 02:51 | XMS_ITS | Encounter Summary ---
Author Organization [facility] Address [address] [place] [address] Care Team Providers Care Car Head Liner Installer Name Role Phone Arben Prado MD Primary Care Provider +1 [phone] Encounter Details Date Type Department Care Team (Latest Contact Info) Description 08/01/1998 Outpatient Historical [facility] Family Medicine [address] [address] Yamil Palma DO NO ADDRESS ON FILE Acute pharyngitis (Primary Dx) Social History Tobacco Use Types Packs/Day Years Used Date Smoking Tobacco: Never Assessed Comments Unknown Sex and Gender Information Value Date Recorded Sex Assigned at Not on file Legal Sex Female 6:22 AM PERMANENT MOLD SUPERVISOR Gender Identity Not on file Sexual Orientation Not on file documented as of this encounter Plan of Treatment Not on file documented as of this encounter Visit Diagnoses Diagnosis Acute pharyngitis- Primary documented in this encounter Care Teams Car Head Liner Installer Relationship Specialty Start Date End Date Arben Prado MD [address] [address] PCP - General Family Practice 02/18/18 documented as of this encounter
--- OUTSIDE RECORDS SUMMARY | 2024-12-04 02:51 | XMS_ITS | Encounter Summary ---
Author Organization [facility] Address [address] [place] [address] Care Team Providers Care Prepress Stripper Name Role Phone Arben Prado MD Primary Care Provider +1 [phone] Encounter Details Date Type Department Care Team (Latest Contact Info) Description 05/25/2005 Outpatient Historical [facility] Medicine [address] [phone] Omi Tolbert MD [address] [facility] [address] [place] [phone] ACUTE URI NOS (Primary Dx) Social History Tobacco Use Types Packs/Day Years Used Date Smoking Tobacco: Never Assessed Comments Unknown Sex and Gender Information Value Date Recorded Sex Assigned at Not on file Legal Sex Female 6:22 AM MOLD WASHER Gender Identity Not on file Sexual Orientation Not on file documented as of this encounter Plan of Treatment Not on file documented as of this encounter Visit Diagnoses Diagnosis Acute upper respiratory infections of unspecified site- Primary documented in this encounter Care Teams Prepress Stripper Relationship Specialty Start Date End Date Arben Prado MD [address] [phone] PCP - General Family Practice 02/18/18 documented as of this encounter
--- OUTSIDE RECORDS SUMMARY | 2024-12-04 02:52 | XMS_ITS | Encounter Summary ---
Author Organization [facility] Address [address] [place] [address] Care Team Providers Care Fbi Special Agent Name Role Phone Arben Prado MD Primary Care Provider +1 -[phone] Encounter Details Date Type Department Care Team (Latest Contact Info) Description 05/10/1999 Outpatient Historical [facility] Family Medicine [address] [phone] Corin Figueroa NO ADDRESS ON FILE Tension headache (Primary Dx); Temporomandibular joint disorders, unspecified; Depressive disorder, not elsewhere classified Social History Tobacco Use Types Packs/Day Years Used Date Smoking Tobacco: Never Assessed Comments Unknown Sex and Gender Information Value Date Recorded Sex Assigned at Not on file Legal Sex Female 6:22 AM SALES CLERK FOOD Gender Identity Not on file Sexual Orientation Not on file documented as of this encounter Plan of Treatment Not on file documented as of this encounter Visit Diagnoses Diagnosis Tension headache- Primary Temporomandibular joint disorders, unspecified Depressive disorder, not elsewhere classified documented in this encounter Care Teams Fbi Special Agent Relationship Specialty Start Date End Date Arben Prado MD [address] [address] PCP - General Family Practice 02/18/18 documented as of this encounter
--- OUTSIDE RECORDS SUMMARY | 2024-12-04 02:52 | XMS_ITS | Encounter Summary ---
Author Organization [facility] Address [address] [place] [address] Care Team Providers Care Cardiographer Name Role Phone Arben Prado MD Primary Care Provider +1 [phone] Encounter Details Date Type Department Care Team (Latest Contact Info) Description 01/25/2004 Outpatient Historical [facility] Family Medicine- [address] [place] [address] Raul Padilla, PA NO ADDRESS ON FILE JOINT PAIN-UNSPEC (Primary Dx); OTHER MALAISE AND FATIGUE; Skin sensation disturb; SCREENING-LIPOID DISORDERS Social History Tobacco Use Types Packs/Day Years Used Date Smoking Tobacco: Never Assessed Comments Unknown Sex and Gender Information Value Date Recorded Sex Assigned at Not on file Legal Sex Female 6:22 AM SPEED BELT SANDER Gender Identity Not on file Sexual Orientation Not on file documented as of this encounter Plan of Treatment Not on file documented as of this encounter Visit Diagnoses Diagnosis Pain in joint, site unspecified- Primary Other malaise and fatigue Skin sensation disturb Disturbance of skin sensation Screening for lipoid disorders documented in this encounter Care Teams Cardiographer Relationship Specialty Start Date End Date Arben Prado MD [address] [facility] [address] [place] [address] PCP - General Family Practice 02/18/18 documented as of this encounter
--- OUTSIDE RECORDS SUMMARY | 2024-12-04 02:52 | XMS_ITS | Encounter Summary ---
Author Organization [facility] Address [address] [place] [address] Care Team Providers Care Geographic Information System Surveyor Name Role Phone Arben Prado MD Primary Care Provider +1 [phone] Encounter Details Date Type Department Care Team (Latest Contact Info) Description 05/26/2003 Outpatient Historical [facility] Family Medicine- [address] [place] [address] Yamil Palma, NO ADDRESS ON FILE CHEST PAIN NEC (Primary Dx); ADJ REACT-ANXIOUS MOOD Social History Tobacco Use Types Packs/Day Years Used Date Smoking Tobacco: Never Assessed Comments Unknown Sex and Gender Information Value Date Recorded Sex Assigned at Not on file Legal Sex Female 6:22 AM CLERICAL GRADER Gender Identity Not on file Sexual Orientation Not on file documented as of this encounter Plan of Treatment Not on file documented as of this encounter Visit Diagnoses Diagnosis Other chest pain- Primary Adjustment disorder with anxiety documented in this encounter Care Teams Geographic Information System Surveyor Relationship Specialty Start Date End Date Arben Prado MD [address] [facility] [address] [place] [phone] PCP - General Family Practice 02/18/18 documented as of this encounter
--- OUTSIDE RECORDS SUMMARY | 2024-12-04 02:52 | XMS_ITS | Encounter Summary ---
Author Organization [facility] Address [address] [place] [facility] [place] [address] Care Team Providers Care Fitter / Welder Name Role Phone Arben Prado MD Primary Care Provider +1 -[phone] Encounter Details Date Type Department Care Team (Latest Contact Info) Description 03/21/2004 Outpatient Historical [facility] Family Medicine- [address] [place] [phone] Mariela Joyner NP NO ADDRESS ON FILE MYALGIA AND MYOSITIS NOS (Primary Dx) Social History Tobacco Use Types Packs/Day Years Used Date Smoking Tobacco: Never Assessed Comments Unknown Sex and Gender Information Value Date Recorded Sex Assigned at Not on file Legal Sex Female 6:22 AM COBOL ENGINEER Gender Identity Not on file Sexual Orientation Not on file documented as of this encounter Plan of Treatment Not on file documented as of this encounter Visit Diagnoses Diagnosis Myalgia and myositis, unspecified- Primary Mylagia and myositis, unspecified documented in this encounter Care Teams Fitter / Welder Relationship Specialty Start Date End Date Arben Prado MD [address] [facility] [address] [place] [phone] PCP - General Family Practice 02/18/18 documented as of this encounter
--- OUTSIDE RECORDS SUMMARY | 2024-12-04 02:52 | XMS_ITS | Encounter Summary ---
Author Organization [facility] Address [address] [facility] [place] [address] Care Team Providers Care Petroleum Sampler Name Role Phone Arben Prado MD Primary Care Provider +1 -[phone] Encounter Details Date Type Department Care Team (Latest Contact Info) Description 02/04/[address] [facility] Family Medicine- [address] [place] [phone] Yamil Palma, DO NO ADDRESS ON FILE Unspecified symptom associated with female genital organs (Primary Dx); Absence of menstruation Social History Tobacco Use Types Packs/Day Years Used Date Smoking Tobacco: Never Assessed Comments Unknown Sex and Gender Information Value Date Recorded Sex Assigned at Not on file Legal Sex Female 6:22 AM UNCLAIMED PROPERTY MANAGER Gender Identity Not on file Sexual Orientation Not on file documented as of this encounter Plan of Treatment Not on file documented as of this encounter Visit Diagnoses Diagnosis Unspecified symptom associated with female genital organs- Primary Absence of menstruation documented in this encounter Care Teams Petroleum Sampler Relationship Specialty Start Date End Date Arben Prado MD [address] [facility] [address] [place] [address] PCP - General Family Practice 02/18/18 documented as of this encounter
--- OUTSIDE RECORDS SUMMARY | 2024-12-04 02:52 | XMS_ITS | Encounter Summary ---
Author Organization [facility] Address [address] [place] [address] Care Team Providers Care Roll Forming Machine Set Up Mechanic Name Role Phone Arben Prado MD Primary Care Provider +1 -[phone] Encounter Details Date Type Department Care Team (Latest Contact Info) Description 11/21/1999 Outpatient Historical [facility] Family Medicine [address] [phone] Yamil Palma DO NO ADDRESS ON FILE Urinary tract infection, site not specified (Primary Dx); Acute upper respiratory infections of unspecified site Social History Tobacco Use Types Packs/Day Years Used Date Smoking Tobacco: Never Assessed Comments Unknown Sex and Gender Information Value Date Recorded Sex Assigned at Not on file Legal Sex Female 6:22 AM RECEIVING SUPERVISOR Gender Identity Not on file Sexual Orientation Not on file documented as of this encounter Plan of Treatment Not on file documented as of this encounter Visit Diagnoses Diagnosis Urinary tract infection, site not specified- Primary Acute upper respiratory infections of unspecified site documented in this encounter Care Teams Roll Forming Machine Set Up Mechanic Relationship Specialty Start Date End Date Arben Prado MD [address] [address] PCP - General Family Practice 02/18/18 documented as of this encounter
--- OUTSIDE RECORDS SUMMARY | 2024-12-04 02:52 | XMS_ITS | Encounter Summary ---
Author Organization [facility] Address [address] [place] [address] Care Team Providers Care Otr Hazmat Company Driver Name Role Phone Arben Prado MD Primary Care Provider +1 -[phone] Encounter Details Date Type Department Care Team (Late st Contact Info) Description 01/25/2004 Outpatient Historical [facility] Family Medicine- [address] [place] [phone] Raul Padilla, PA NO ADDRESS ON FILE Social History Tobacco Use Types Packs/Day Years Used Date Smoking Tobacco: Never Assessed Comments Unknown Sex and Gender Information Value Date Recorded Sex Assigned at Not on file Legal Sex Female 6:[address] ENGINEER Gender Identity Not on file Sexual Orientation Not on file documented as of this encounter Plan of Treatment Not on file documented as of this encounter Visit Diagnoses Not on filedocumented in this encounter Care Teams Otr Hazmat Company Driver Relationship Specialty Start Date End Date Arben Prado MD [address] [facility] [address] [place] [address] PCP - General Family Practice 02/18/18 documented as of this encounter
--- OUTSIDE RECORDS SUMMARY | 2024-12-04 02:52 | XMS_ITS | Encounter Summary ---
Author Organization [facility] Address [address] [place] [facility] [place] [address] Care Team Providers Care Precision Machine Operator Name Role Phone Arben Prado MD Primary Care Provider +1 -[phone] Encounter Details Date Type Department Care Team (Latest Contact Info) Description 03/08/2004 Outpatient Historical [facility] Family Medicine- [address] [place] [address] Mariela Joyner NP NO ADDRESS ON FILE ABN BLOOD CHEMISTRY NEC (Primary Dx) Social History Tobacco Use Types Packs/Day Years Used Date Smoking Tobacco: Never Assessed Comments Unknown Sex and Gender Information Value Date Recorded Sex Assigned at Not on file Legal Sex Female 6:22 AM YARN WASHER Gender Identity Not on file Sexual Orientation Not on file documented as of this encounter Plan of Treatment Not on file documented as of this encounter Visit Diagnoses Diagnosis Other abnormal blood chemistry- Primary documented in this encounter Care Teams Precision Machine Operator Relationship Specialty Start Date End Date Arben Prado MD [address] [facility] [address] [place] [address] PCP - General Family Practice 02/18/18 documented as of this encounter
--- OUTSIDE RECORDS SUMMARY | 2024-12-04 02:52 | XMS_ITS | Encounter Summary ---
Author Organization [facility] Address [address] [place] [address] Care Team Providers Care Peoplesoft Hcm Developer Name Role Phone Arben Prado MD Primary Care Provider +1 -[phone] Encounter Details Date Type Department Care Team (Late st Contact Info) Description 07/18/2004 Outpatient Historical [facility] Family Medicine- [address] [place] [phone] Raul Padilla, PA NO ADDRESS ON FILE Social History Tobacco Use Types Packs/Day Years Used Date Smoking Tobacco: Never Assessed Comments Unknown Sex and Gender Information Value Date Recorded Sex Assigned at Not on file Legal Sex Female 6:22 AM STEM FRAZER Gender Identity Not on file Sexual Orientation Not on file documented as of this encounter Plan of Treatment Not on file documented as of this encounter Procedures Procedure Name Priority Date/Time Associated Diagnosis Comments ALT Routine 07/18/2004 9:00 AM STEM FRAZER CK Routine 07/18/2004 9:00 AM STEM FRAZER LIPID PANEL Routine 07/18/2004 9:00 AM STEM FRAZER documented in this encounter Results * (ABNORMAL) CK (07/18/2004 9:00 AM STEM FRAZER) CK 139(H) 0 - 133 IU/L INTERFACE SYSTEM 07/18/2004 9:00 AM STEM FRAZER Raul ASHRAF CHEMISTRY ORDERABLES Final Re sult INTERFACE SYSTEM Refer to clinic/hospital department * ALT (07/18/2004 9:00 AM STEM FRAZER) ALT 21 9 - 52 IU/L INTERFAC E SYSTEM 07/18/2004 9:00 AM STEM FRAZER Raul ASHRAF CHEMISTRY ORDERABLES Final Re sult INTERFACE SYSTEM Refer to clinic/hospital department * (ABNORMAL) LIPID PANEL (07/18/2004 9:00 AM STEM FRAZER) CHOLESTEROL 246(H) 75 - 200 mg/dL INTERFACE SYSTEM TRIGLYCERIDE 115 0 - 200 mg/dL INTERFACE SYSTEM CALCULATED TOTAL CHOLESTEROL TO HDL RATIO 4.64(H) 3.27 - 4.44 INTERFACE SYSTEM HDL 53 40 - 60 mg/dL INTERFACE SYSTEM LDL CALCULATED 170(H) 0 - 130 mg/dL INTERFACE SYSTEM 07/18/2004 9:00 AM STEM FRAZER Raul ASHRAF CHEMISTRY ORDERABLES Final Re sult Performing Organization Address [facility] Co de Phone Number INTERFACE SYSTEM Refer to clinic/hospital department documented in this encounter Visit Diagnoses Not on filedocumented in this encounter Care Teams Peoplesoft Hcm Developer Relationship Specialty Start Date End Date Arben Prado MD [address] [phone] PCP - General Family Practice 02/18/18 documented as of this encounter
--- OUTSIDE RECORDS SUMMARY | 2024-12-04 02:52 | XMS_ITS | Encounter Summary ---
Author Organization [facility] Address [address] [place] [address] Care Team Providers Care Tie Up Worker Name Role Phone Arben Prado MD Primary Care Provider +1 [phone] Encounter Details Date Type Department Care Team (Latest Contact Info) Description 03/31/1999 Outpatient Historical [facility] Family Medicine [address] [address] Yamil Palma DO NO ADDRESS ON FILE Headache(784.0) (Primary Dx) Social History Tobacco Use Types Packs/Day Years Used Date Smoking Tobacco: Never Assessed Comments Unknown Sex and Gender Information Value Date Recorded Sex Assigned at Not on file Legal Sex Female 6:22 AM HR SHARED SERVICES CONSULTANT Gender Identity Not on file Sexual Orientation Not on file documented as of this encounter Plan of Treatment Not on file documented as of this encounter Visit Diagnoses Diagnosis Headache(784.0)- Primary Headache documented in this encounter Care Teams Tie Up Worker Relationship Specialty Start Date End Date Arben Prado MD [address] [address] PCP - General Family Practice 02/18/18 documented as of this encounter
--- OUTSIDE RECORDS SUMMARY | 2024-12-04 02:52 | XMS_ITS | Encounter Summary ---
Author Organization [facility] Address [address] [place] [address] Care Team Providers Care Cabin Cleaning Supervisor Name Role Phone Arben Prado MD Primary Care Provider +1 [phone] Encounter Details Date Type Department Care Team (Latest Contact Info) Description 07/12/2004 Outpatient Historical [facility] Family Medicine- [address] [place] [address] Raul Padilla, PA NO ADDRESS ON FILE ACUTE URI NOS (Primary Dx); Pain in limb Social History Tobacco Use Types Packs/Day Years Used Date Smoking Tobacco: Never Assessed Comments Unknown Sex and Gender Information Value Date Recorded Sex Assigned at Not on file 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
--- OUTSIDE RECORDS SUMMARY | 2024-12-04 02:52 | XMS_ITS | Encounter Summary ---
Author Organization [facility] Address [address] [place] [address] Care Team Providers Care Microsoft Dynamics Developer Name Role Phone Arben Prado MD Primary Care Provider [phone] [phone] Encounter Details Date Type Department Care Team (Latest Contact Info) Description 12/25/2002 Outpatient Historical [facility] Family Medicine- [address] [phone] Omi Tolbert MD [address] [facility] [address] [place] [address] JOINT PAIN-UNSPEC (Primary Dx); ALLERGY, UNSPECIFIED Social History Tobacco Use Types Packs/Day Years Used Date Smoking Tobacco: Never Assessed Comments Unknown Sex and Gender Information Value Date Recorded Sex Assigned at Not on file 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
--- OUTSIDE RECORDS SUMMARY | 2024-12-04 02:52 | XMS_ITS | Clinical Summary ---
Author Organization [facility] Address [address] [place] [address] Care Team Providers Care Wall Covering Contractor Name Role Phone Diane Mcmullen MD Primary Care Provider [phone] Allergies Active Allergy Reactions Criticality Noted Date Comments Penicillins Rash Low 06/08/2011 Statins Other (see comments) Low 09/24/2018 Medications amitriptyline (ELAVIL) 25 MG tablet Take 1 tablet by mouth every night 08/02/19 21 Active citalopram (CeleXA) 20 MG tablet Take 1 tablet by mouth every night 08/16/19 21 Active acetaminophen (TYLENOL) 500 MG tablet Take 500 mg by mouth 1 (one) time each day if needed for moderate pain Will take if the 8 hour isn't enough 09/29/19 19 Active HYDROcodone-acet aminophen (NORCO) 5-325 MG per tablet Take 1 tablet by mouth every 4 (four) hours if needed for severe pain Alternating with acetaminophen 09/25/19 19 Active Cholecalciferol (Vitamin D3) 25 MCG (1000 UT) capsule Take 25 mcg by mouth 1 (one) time each day Active exemestane (AROMASIN) 25 MG chemo tablet Take 25 mg by mouth 1 (one) time each day Take after a meal. Try to take at the same time each day. Active lisinopril 10 MG tabletIndication s:Essential (primary) hypertension Take 1 tablet (10 mg total) by mouth 1 (one) time each day 10/15/19 24 Active Additional Information Patient taking differently: 20 mgOral Daily, Reported on 11/02/2024 oxyCODONE (ROXICODONE) 5 MG immediate release tablet Take 5 mg by mouth every 6 (six) hours if needed 07/30/19 25 Active lidocaine (LIDODERM) 5 % patch Apply 1 patch topically in the morning. 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 Monitor for progression of disease. [facility] - Chronic Kidney Disease - [facility] Prediabetes 12/30/2020 Recurrent major depression in full remission 12/2016 Overview (04/05/2022): Last Assessment & Plan: Stable. Continue current treatment. Every [facility] - Depression ([facility]) Resolved Problems Problem Noted Date Diagnosed Date Resolved Date H/O Malignant melanoma 10/18/202104/05 Malignant neoplasm of right female breast 10/11/2016 04/05/2022 Encounters Date Type Department Care Team Description 11/03/2024 Documentation Only [facility] [address] [place] [phone] Karen Stovall MA 11/03/2024 Documentation Only [facility] [address] [place] [address] Karen Stovall MA 11/02/2024 10:30 AM CDT Office Visit [facility] [address] [place] [address] Ashleigh Alba NP Stage 3b chronic kidney disease (HCC) (Primary Dx) 11/02/2024 Results Follow-Up [facility] [address] [address] Wilman Karensara Bernard MA 11/02/2024 Documentation Only [facility] [address] [address] Karen Stovall MA 10/19/2024 Telephone [facility] [address] [address] Zayda Youssef MD from Last 3 Months Family History Medical History Relation Comments Cancer Father Heart disease Father Stroke Mother Relation Status Comments Father Mother Paternal Grandfather Sister Social History Tobacco Use Types Packs/Day Years Used Date Smoking Tobacco: Former Cigarettes Q uit: 2013 Smokeless Tobacco: Never Tobacco Cessation:Counseling Given: Not Answered Alcohol Use Standard Drinks/Week Comments Never 0 (1 standard drink = 0.6 oz pur e alcohol) Comments Unknown Sex and Gender Information Value Date Recorded Sex Assigned at Not on file Legal Sex Female 1:19 PM EDT Gender Identity Not on file Sexual Orientation Not on file Last Filed Vital Signs Vital Sign Reading Time Taken Comments Blood Pressure 114/62 11/02/2024 10:26 AM CDT Pulse 68 11/02/2024 10:26 AM CDT Temperature - - Respiratory Rate - - Oxygen Saturation 95% 11/02/2024 10:26 AM CDT Inhaled Oxygen Concentration - - Weight 71.4 kg (157 lb 6.4 oz) 11/02/2024 10:26 AM CDT Height 154.9 cm (5' 1 ) 11/02/2024 10:26 AM CDT Body Mass Index 29.74 11/02/2024 10:26 AM CDT Plan of Treatment Upcoming Encounters Date Type Department Care Team (Late st Contact Info) Description 04/27/2025 2:00 PM CARPET CUTTER Office Visit [facility] [address] [place] [address] Ashleigh Alba NP [address] [address] Health Maintenance Due Date Last Done Comments Breast Cancer Screening 1950 Pneumococcal Vaccine: 50+ Ye ars (1 of 2 - PCV) 1968 Colorectal Cancer Screening: Annual FOBT 1998 Colorectal Cancer Screening: Sigmoidoscopy 1998 Influenza Vaccine (#1) 2025 Colorectal Cancer Screening: Colonoscopy 07/07/2034 07/07/2024 Hepatitis B Vaccine Aged Out No longe r eligible based on patient's age to complete this topic Procedures Procedure Name Priority Date/Time Associated Diagnosis Comments URINE ALBUMIN / CREATININE RATIO Routine 11/02/2024 9:35 AM CDT Stage 3b chronic kidney disease (HCC) CBC Routine 11/02/2024 9:35 AM CDT Stage 3b chronic kidney disease (HCC) RENAL FUNCTION PANEL Routine 11/02/2024 9:35 AM CDT Stage 3b chronic kidney disease (HCC) PTH, INTACT Routine 10/26/2024 10:05 AM CDT Stage 3b chronic kidney disease (HCC) Deficiency of vitamin D3 from Last 3 Months Results * Urine Albumin / Creatinine Ratio (11/02/2024 9:35 AM CDT) Albumin, Urine 1 mg/dL PRINT /EXTERNAL (NON-INTERFACE D LABS) Creatinine, Urine Random 97 mg/dL PRINT/EXTERNAL (NON-INTERFACE D LABS) Alb/Creat Ratio, Ur 10 mg/g Creat PRINT/EXTERNAL (NON-INTERFACE D LABS) Urine Urine specimen obtained by clean catch procedure / Unknown 11/02/2024 9:35 AM CDT Narrative PRINT/EXTERNAL (NON-INTERFACED LABS) - 11/02/2024 1:41 PM CDT [facility] Clinical Laboratory [address] [place] [address] Dr. Eber Molina, Recycling Collections Driver us Ashleigh Alba NP LAB URINE ORDERABLES Alka marco antonio Result PRINT/EXTERNAL (NON-INTERFACED LABS) * CBC (11/02/2024 9:35 AM CDT) Pathologist [facility] WBC 6.34 K/uL PRINT/EXTE RNAL (NON-INTERFACE D LABS) Red Blood Cell Count 4.46 PRINT/EXTERNAL (NON-INTERFACE D LABS) Hemoglobin 12.50 g/dL PRINT/EXT ERNAL (NON-INTERFACE D LABS) Hematocrit 37.7 % PRINT/EXT ERNAL (NON-INTERFACE D LABS) MCV 84.5 PRINT/EXTE RNAL (NON-INTERFACE D LABS) MCH 28.0 PRINT/EXTE RNAL (NON-INTERFACE D LABS) MCHC 33.2 PRINT/EXTE RNAL (NON-INTERFACE D LABS) RDW 14.0 PRINT/EXTE RNAL (NON-INTERFACE D LABS) Platelet Count 185 PRINT /EXTERNAL (NON-INTERFACE D LABS) MPV 9.0 PRINT/EXTE RNAL (NON-INTERFACE D LABS) Absolute Neutrophils 2.48 PRINT/EXTERNAL (NON-INTERFACE D LABS) Absolute Lymphocytes 3.0 PRINT/EXTERNAL (NON-INTERFACE D LABS) Absolute Monocytes 0.5 PRINT/EXTERNAL (NON-INTERFACE D LABS) Absolute Eosinophils 0.2 PRINT/EXTERNAL (NON-INTERFACE D LABS) Absolute Basophils 0.1 PRINT/EXTERNAL (NON-INTERFACE D LABS) Neutrophils 39.1 K/uL PRINT/EX TERNAL (NON-INTERFACE D LABS) Lymphocytes 47.9 PRINT/EX TERNAL (NON-INTERFACE D LABS) Monocytes 7.6 PRINT/EXTE RNAL (NON-INTERFACE D LABS) Eosinophils 3.9 PRINT/EX TERNAL (NON-INTERFACE D LABS) Basophils 3.4 PRINT/EXTE RNAL (NON-INTERFACE D LABS) Blood Venous blood / Unknown 11/02/2024 9:35 AM CDT us Ashleigh Alba NP LAB BLOOD ORDERABLES Alka bernard Result PRINT/EXTERNAL (NON-INTERFACED LABS) * Renal Function Panel (11/02/2024 9:35 AM CDT) Pathologist [facility] Glucose 111 mg/dL PRINT/EXTE RNAL (NON-INTERFACE D LABS) BUN 16 mg/dL PRINT/EXTE RNAL (NON-INTERFACE D LABS) Creatinine 1.0 mg/dL PRINT/EXT ERNAL (NON-INTERFACE D LABS) Sodium 140 mEq/L PRINT/EXTE RNAL (NON-INTERFACE D LABS) Potassium 4.4 mEq/L PRINT/EXTE RNAL (NON-INTERFACE D LABS) Chloride 104 PRINT/EXTE RNAL (NON-INTERFACE D LABS) Carbon Dioxide 23 mmol/L PRINT /EXTERNAL (NON-INTERFACE D LABS) Calcium 9.5 mg/dL PRINT/EXTE RNAL (NON-INTERFACE D LABS) Phosphorus, Serum 2.8 mg/dL PRINT/EXTERNAL (NON-INTERFACE D LABS) Albumin (Blood) 4.0 g/dL PRIN T/EXTERNAL (NON-INTERFACE D LABS) eGFR 59 PRINT/EXTE RNAL (NON-INTERFACE D LABS) Comment:NKF calculation Blood Venous blood / Unknown 11/02/2024 9:35 AM CDT Ashleigh Alba NP LAB BLOOD ORDERABLES Edit ed Result - Final PRINT/EXTERNAL (NON-INTERFACED LABS) * PTH, intact (10/26/2024 10:05 AM CDT) Parathyroid Hormone, Intact 59 16 - 77 pg/mL [facility] Comment: Interpretive Guide Intact PTH Calcium ------- Normal Parathyroid Normal Normal Hypoparathyroidism Low or Low Normal Low Hyperparathyroidism Primary Normal or High High Secondary High Normal or Low Tertiary High High Non-Parathyroid Hypercalcemia Low or Low Normal High Blood specimen (specimen) Venous blood / Unknown 10/26/2024 10:05 AM CDT 10/27/2024 8:46 AM CDT Narrative [facility] - 10/28/2024 1:09 PM CDT FASTING: UNKNOWN Resulting Agency Comment Performing Organization Information: Site ID: [place] Name: [email or web address] Address: [id number] [address] Director: Bijan Jackson MD us [address] [facility] LAB BLOOD ORDERABLES Final Resu lt JAZMINE ST[facility]co [facility] [id number] [id number] from Last 3 Months Insurance BCBS [place] MCR Adv ([id number]) Care Teams Wall Covering Contractor Relationship Specialty Start Date End Date Diane Mcmullen MD [address] [address] PCP - General Family Medicine 11/08/21
--- OUTSIDE RECORDS SUMMARY | 2024-12-04 02:52 | XMS_ITS | Encounter Summary ---
Author Organization [facility] Address [address] [place] [address] Care Team Providers Care Roll Line Operator Name Role Phone Arben Prado MD Primary Care Provider [phone] [phone] Encounter Details Date Type Department Care Team (Latest Contact Info) Description 02/29/2004 Outpatient Historical [facility] Family Medicine- [address] [place] [address] Raul Padilla, PA NO ADDRESS ON FILE MYALGIA AND MYOSITIS NOS (Primary Dx); HYPERLIPIDEMIA NEC/NOS; CHEST PAIN NOS; AFTERCARE DETENTION USE MEDICATN Social History Tobacco Use Types Packs/Day Years Used Date Smoking Tobacco: Never Assessed Comments Unknown Sex and Gender Information Value Date Recorded Sex Assigned at Not on file Legal Sex Female 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 Gender Identity Not on file Sexual Orientation Not on file documented as of this encounter Plan of Treatment Not on file documented as of this encounter Visit Diagnoses Diagnosis Myalgia and myositis, unspecified- Primary Mylagia and myositis, unspecified Other and unspecified hyperlipidemia Chest pain, unspecified Encounter for long-term (current) use of other medications documented in this encounter Care Teams Roll Line Operator Relationship Specialty Start Date End Date Arben Prado MD [address] [facility] [address] [place] [address] PCP - General Family Practice 02/18/18 documented as of this encounter
--- OUTSIDE RECORDS SUMMARY | 2024-12-04 02:52 | XMS_ITS | Encounter Summary ---
Author Organization [facility] Address [address] [place] [address] Care Team Providers Care Bead Wire Insulator Name Role Phone Arben Prado MD Primary Care Provider +1 [phone] Encounter Details Date Type Department Care Team (Latest Contact Info) Description 12/12/2001 Outpatient Historical [facility] Family Medicine [address] [phone] Omi Tolbert MD [address] [facility] [address] [place] [address] ANXIETY STATE NOS (Primary Dx) Social History Tobacco Use Types Packs/Day Years Used Date Smoking Tobacco: Never Assessed Comments Unknown Sex and Gender Information Value Date Recorded Sex Assigned at Not on file Legal Sex Female 6:22 AM HAZ TECH Gender Identity Not on file Sexual Orientation Not on file documented as of this encounter Plan of Treatment Not on file documented as of this encounter Visit Diagnoses Diagnosis Anxiety state, unspecified- Primary documented in this encounter Care Teams Bead Wire Insulator Relationship Specialty Start Date End Date Arben Prado MD [address] [phone] PCP - General Family Practice 02/18/18 documented as of this encounter
--- OUTSIDE RECORDS SUMMARY | 2024-12-04 02:52 | XMS_ITS | Encounter Summary ---
Author Organization [facility] Address [address] [place] [address] Care Team Providers Care Research Chemist Name Role Phone Arben Prado MD Primary Care Provider +1 [phone] Encounter Details Date Type Department Care Team (Latest Contact Info) Description 03/18/2002 Outpatient Historical [facility] Family Medicine- [address] [place] [address] Yamil Palma, NO ADDRESS ON FILE ACUTE PHARYNGITIS (Primary Dx) Social History Tobacco Use Types Packs/Day Years Used Date Smoking Tobacco: Never Assessed Comments Unknown Sex and Gender Information Value Date Recorded Sex Assigned at Not on file 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
--- OUTSIDE RECORDS SUMMARY | 2024-12-04 02:52 | XMS_ITS | Encounter Summary ---
Author Organization [facility] Address [address] [place] [address] Care Team Providers Care Liquid Center Assembler Name Role Phone Arben Prado MD Primary Care Provider +1 [phone] Encounter Details Date Type Department Care Team (Latest Contact Info) Description 12/03/2001 Outpatient Historical [facility] Family Medicine [address] [phone] Omi Tolbert MD [address] [facility] [address] [place] [address] ANXIETY STATE NOS (Primary Dx) Social History Tobacco Use Types Packs/Day Years Used Date Smoking Tobacco: Never Assessed Comments Unknown Sex and Gender Information Value Date Recorded Sex Assigned at Not on file 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
--- OUTSIDE RECORDS SUMMARY | 2024-12-04 02:52 | XMS_ITS | Encounter Summary ---
Author Organization [facility] Address [address] [place] [address] Care Team Providers Care Director Voice Name Role Phone Arben Prado MD Primary Care Provider +1 [phone] Encounter Details Date Type Department Care Team (Late st Contact Info) Description 02/29/2004 Outpatient Historical [facility] Family Medicine- [address] [place] [address] Raul Padilla, PA NO ADDRESS ON FILE Social History Tobacco Use Types Packs/Day Years Used Date Smoking Tobacco: Never Assessed Comments Unknown Sex and Gender Information Value Date Recorded Sex Assigned at Not on file Legal Sex Female 6:22 AM FACTORY HAND Gender Identity Not on file Sexual Orientation Not on file documented as of this encounter Plan of Treatment Not on file documented as of this encounter Visit Diagnoses Not on filedocumented in this encounter Care Teams Director Voice Relationship Specialty Start Date End Date Arben Prado MD [address] [facility] [address] [place] [address] PCP - General Family Practice 02/18/18 documented as of this encounter
--- OUTSIDE RECORDS SUMMARY | 2024-12-04 02:52 | XMS_ITS | Encounter Summary ---
Author Organization [facility] Address [address] [place] [address] Care Team Providers Care Engraver Automatic Name Role Phone Arben Prado MD Primary Care Provider +1 [phone] Encounter Details Date Type Department Care Team (Latest Contact Info) Description 03/13/1999 Outpatient Historical [facility] Family Medicine- [address] [place] [address] Corin Figuerao NO ADDRESS ON FILE Acute sinusitis, unspecified (Primary Dx); Influenza with other respiratory manifestations Social History Tobacco Use Types Packs/Day Years Used Date Smoking Tobacco: Never Assessed Comments Unknown Sex and Gender Information Value Date Recorded Sex Assigned at Not on file 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
--- OUTSIDE RECORDS SUMMARY | 2024-12-04 02:52 | XMS_ITS | Encounter Summary ---
Author Organization [facility] Address [address] [place] [address] Care Team Providers Care Speech Language Assistant Name Role Phone Arben Prado MD Primary Care Provider +1 [phone] Encounter Details Date Type Department Care Team (Latest Contact Info) Description 08/24/2003 Outpatient Historical [facility] Family Medicine- [address] [place] [address] Omi Tolbert MD [address] [facility] [address] [place] [address] ALLERGY, UNSPECIFIED (Primary Dx); ACUTE BRONCHITIS Social History Tobacco Use Types Packs/Day Years Used Date Smoking Tobacco: Never Assessed Comments Unknown Sex and Gender Information Value Date Recorded Sex Assigned at Not on file Legal Sex Female 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
--- OUTSIDE RECORDS SUMMARY | 2024-12-04 02:52 | XMS_ITS | Encounter Summary ---
Author Organization [facility] Address [address] [place] [address] Care Team Providers Care Dog Catcher Name Role Phone Arben Prado MD Primary Care Provider +1 -[phone] Encounter Details Date Type Department Care Team (Latest Contact Info) Description 07/01/[address] 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
--- OUTSIDE RECORDS SUMMARY | 2024-12-04 02:52 | XMS_ITS | Encounter Summary ---
Author Organization [facility] Address [address] [place] [address] Care Team Providers Care Natural Foods Clerk Name Role Phone Arben Prado MD Primary Care Provider +1 [phone] Encounter Details Date Type Department Care Team (Latest Contact Info) Description 09/05/2004 Outpatient Historical [facility] Family Medicine- [address] [place] [address] Raul Padilla, PA NO ADDRESS ON FILE OPEN WOUND OF FINGER (Primary Dx); HYPERLIPIDEMIA NEC/NOS Social History Tobacco Use Types Packs/Day Years Used Date Smoking Tobacco: Never Assessed Comments Unknown Sex and Gender Information Value Date Recorded Sex Assigned at Not on file Legal Sex Female 6: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
--- OUTSIDE RECORDS SUMMARY | 2024-12-04 02:52 | XMS_ITS | Encounter Summary ---
Author Organization [facility] Address [address] [place] [address] Care Team Providers Care Bookie Name Role Phone Arben Prado MD Primary Care Provider +1 -[phone] Encounter Details Date Type Department Care Team (Latest Contact Info) Description 04/03/2005 Outpatient Historical [facility] Medicine- [address] [phone] Raul Padilla, PA NO ADDRESS ON FILE SYMPTOMATIC FEMALE CLIMACTERIC STATE (Primary Dx); CHRONIC SINUSITIS NOS Social History Tobacco Use Types Packs/Day Years Used Date Smoking Tobacco: Never Assessed Comments Unknown Sex and Gender Information Value Date Recorded Sex Assigned at Not on file Legal Sex Female 6:22 AM TREASURY DIRECTOR Gender Identity Not on file Sexual Orientation Not on file documented as of this encounter Plan of Treatment Not on file documented as of this encounter Visit Diagnoses Diagnosis Symptomatic menopausal or female climacteric states- Primary Unspecified sinusitis (chronic) documented in this encounter Care Teams Bookie Relationship Specialty Start Date End Date Arben Prado MD [address] [address] PCP - General Family Practice 02/18/18 documented as of this encounter
--- OUTSIDE RECORDS SUMMARY | 2024-12-04 02:52 | XMS_ITS | Encounter Summary ---
Author Organization [facility] Address [address] [place] [address] Care Team Providers Care Truss Puller Helper Name Role Phone Arben Prado MD Primary Care Provider +1 -[phone] Encounter Details Date Type Department Care Team (Latest Contact Info) Description 08/29/2004 Outpatient Historical [facility] Family Medicine- [address] [place] [address] Raul Padilla, PA NO ADDRESS ON FILE OPEN WOUND OF FINGER (Primary Dx) Social History Tobacco Use Types Packs/Day Years Used Date Smoking Tobacco: Never Assessed Comments Unknown Sex and Gender Information Value Date Recorded Sex Assigned at Not on file Legal Sex Female 6:22 AM HUMAN RESOURCES TRAINER Gender Identity Not on file Sexual Orientation Not on file documented as of this encounter Plan of Treatment Not on file documented as of this encounter Visit Diagnoses Diagnosis Open wound of finger(s) , without mention of complication- Primary documented in this encounter Care Teams Truss Puller Helper Relationship Specialty Start Date End Date Arben Prado MD [address] [phone] PCP - General Family Practice 02/18/18 documented as of this encounter
--- OUTSIDE RECORDS SUMMARY | 2024-12-04 02:52 | XMS_ITS | Encounter Summary ---
Author Organization [facility] Address [address] [place] [address] Care Team Providers Care Shagger Name Role Phone Arben Prado MD Primary Care Provider +1 [phone] Encounter Details Date Type Department Care Team (Late st Contact Info) Description 04/10/2005 Outpatient Historical [facility] Family Medicine- [address] [place] [address] Social History Tobacco Use Types Packs/Day Years Used Date Smoking Tobacco: Never Assessed Comments Unknown Sex and Gender Information Value Date Recorded Sex Assigned at Not on file Legal Sex Female 6:22 AM HAIR OR BEAUTY 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
--- OUTSIDE RECORDS SUMMARY | 2024-12-04 02:52 | XMS_ITS | Encounter Summary ---
Author Organization [facility] Address [address] [place] [address] Care Team Providers Care Jtac Name Role Phone Arben Prado MD Primary Care Provider +1 -[phone] Encounter Details Date Type Department Care Team (Latest Contact Info) Description 08/22/2004 Outpatient Historical [facility] Family Medicine- [address] [place] [address] Raul Padilla, PA NO ADDRESS ON FILE HYPERLIPIDEMIA NEC/NOS (Primary Dx); AFTERCARE PENITENTIARY USE MEDICATN Social History Tobacco Use Types Packs/Day Years Used Date Smoking Tobacco: Never Assessed Comments Unknown Sex and Gender Information Value Date Recorded Sex Assigned at Not on file Legal Sex Female 6:22 AM BEAUTY OPERATOR Gender Identity Not on file Sexual Orientation Not on file documented as of this encounter Plan of Treatment Not on file documented as of this encounter Visit Diagnoses Diagnosis Other and unspecified hyperlipidemia- Primary Encounter for long-term (current) use of other medications documented in this encounter Care Teams Jtac Relationship Specialty Start Date End Date Arben Prado MD [address] [facility] [address] [place] [phone] PCP - General Family Practice 02/18/18 documented as of this encounter
--- OUTSIDE RECORDS SUMMARY | 2024-12-04 02:52 | XMS_ITS | Encounter Summary ---
Author Organization [facility] Address [address] [place] [address] Care Team Providers Care Public Aid Eligibility Assistant Name Role Phone Arben Prado MD Primary Care Provider +1 [phone] Encounter Details Date Type Department Care Team (Late st Contact Info) Description 03/08/2004 Outpatient Historical [facility] Family Medicine- [address] [place] [address] Raul Padilla, PA NO ADDRESS ON FILE Social History Tobacco Use Types Packs/Day Years Used Date Smoking Tobacco: Never Assessed Comments Unknown Sex and Gender Information Value Date Recorded Sex Assigned at Not on file Legal Sex Female 6:22 AM LIGHT CLEANER Gender Identity Not on file Sexual Orientation Not on file documented as of this encounter Plan of Treatment Not on file documented as of this encounter Visit Diagnoses Not on filedocumented in this encounter Care Teams Public Aid Eligibility Assistant Relationship Specialty Start Date End Date Arben Prado MD [address] [facility] [address] [place] [address] PCP - General Family Practice 02/18/18 documented as of this encounter
--- OUTSIDE RECORDS SUMMARY | 2024-12-04 02:52 | XMS_ITS | Clinical Summary ---
Author Organization [facility] Address [address] [place] [address] Care Team Providers Care Superintendent Colliery Name Role Phone Arben Prado MD Primary Care Provider +1 [phone] Allergies Active Allergy Reactions Criticality Noted Date Comments Penicillins Rash Low 06/08/2011 Fubnith-Rcu-Pnm Reductase Inhibitors Muscle Pain Low 09/24/2018 Medications cholecalciferol, Vitamin D3, (VITAMIN D3) 25 mcg (1,000 unit) Capsule Take 25 mcg by mouth daily. Active exemestane (AROMASIN) 25 mg tablet Take 25 mg by mouth daily. 2 Active HYDROcodone-acetami nophen (NORCO) 5-325 mg tabletIndications:M yalgia due to statin,Neuropathy Take 1 Tablet by mouth every 8 hours as needed for Pain. Max Daily Amount: 3 Tablets 30 Tablet 3 Active lidocaine (LIDODERM) 5 % Adhesive Patch, MedicatedIndication s:Left hip pain Apply 1 Patch to affected area every 24 hours. 30 Patch 3 5 Active acetaminophen (TYLENOL) 500 mg tabletIndications:O steoarthritis of left hip, unspecified osteoarthritis type Take 1 Tablet (500 mg) by mouth every 6 hours as needed for Pain. 60 Tablet 5 Active tiZANidine (ZANAFLEX) 2 mg Tablet Take 1 Tablet (2 mg) by mouth every 8 hours as needed for Spasm, Pain or Discomfort. 30 Tablet 2 5 Active lisinopriL (PRINIVIL) 20 mg tabletIndications:B enign hypertension Take 1 Tablet (20 mg) by mouth daily. 100 Tablet 3 5 Active oxyCODONE (ROXICODONE) 5 mg tablet TAKE ONE TABLET BY MOUTH EVERY 6 HOURS NEEDED FOR PAIN for FIVE DAYS 5 Active amitriptyline (ELAVIL) 25 mg tabletIndications:A cute intractable headache, unspecified headache type Take 1 Tablet (25 mg) by mouth daily at bedtime. 100 Tablet 2 5 Active citalopram (CeleXA) 20 mg tabletIndications:R ecurrent major depressive disorder, in full remission Take 1 Tablet (20 mg) by mouth daily at bedtime. 100 Tablet 2 5 Active Active Problems Problem Noted Date Diagnosed Date Carcinoma of central portion of female breast, r ight 06/01/2024 Malignant melanoma of other part of trunk 2024 History of melanoma 10/18/2021 Stage 3b chronic kidney disease 10/18/2021 Assessment & Plan (10/18/2021 3:03 PM CDT): Lab Results Component Value Date GFR 43 02/23/2021 GFR 35 01/20/2021 GFR 35 08/01/2020 GFR 36 05/23/2020 GFR 45 (L) 10/21/2018 Stable. Monitor for progression of disease. Every Word Counts - Chronic Kidney Disease - [facility] Prediabetes 12/30/2020 Nausea and vomiting 09/24/2018 Acute colitis 09/24/2018 Acute diarrhea 09/24/2018 ANTOINETTE (acute kidney injury) 09/24/2018 Anxiety state 07/31/2017 Hyperlipidemia 10/23/2016 Recurrent major depressive disorder, in full rem ission 10/11/2016 Assessment & Plan (10/18/2021 3:03 PM CDT): Stable. Continue current treatment. Every Word Counts - Depression ([facility]) History of breast cancer 10/11/2016 Benign hypertension 12/15/2015 Resolved Problems Problem Noted Date Diagnosed Date Resolved Date Bacteremia 04/04/2013 02/06/2015 Pneumonia, organism unspecified(486) 04/03/2013 02/06/2015 Encounters Date Type Department Care Team Description 12/03/[address] [facility] HIM [address] [place] [phone] Provider, Abstract 11/18/2024 External Device Data [facility] ABSTRACTION Provider, Abstract 11/17/2024 External Device Data [facility] Provider, Abstract 10/26/2024 10:50 AM CDT - 10/26/2024 11:59 PM CDT Hospital Encounter [facility] Outpatient Laboratory Services [place] [address] [facility] [address] [place] [phone] [address] NP Discharge Disposition: Home or Self Care 10/20/2024 External Device Data [facility] [place]STRACTION Provider, Abstract 10/19/[address] [phone] Arben Prado MD Acute intractable headache, unspecified headache type; Recurrent major depressive disorder, in full remission 10/13/[address] [phone] Ciera Guevara, ROMA Recurrent major depressive disorder, in full remission 09/24/2024 External Device Data [facility] Provider, Abstract 09/23/2024 External Device Data [facility] Provider, Abstract from Last 3 Months Immunizations Immunization Administration Dates Next Due (TDVAX)(7 [...] Smoking Tobacco: Former Cigarettes Q uit: 03/26/2013 Passive Smoke Exposure: Past Smokeless Tobacco: Never Tobacco Cessation:Counseling Given: No Alcohol Use Standard Drinks/Week Comments No 0 (1 standard drink = 0.6 oz pur e alcohol) Comments No Sex and Gender Information Value Date Recorded Sex Assigned at Not on file Legal Sex Female 3:34 PM INDUSTRIAL ENGINEER Gender Identity Not on file Sexual Orientation Not on file Last Filed Vital Signs Vital Sign Reading Time Taken Comments Blood Pressure 110/72 08/24/2024 10:38 AM CDT Pulse 73 08/24/2024 10:38 AM CDT Temperature 36.7 C (98 F) 08/24/2024 10:38 AM CDT Respiratory Rate 18 08/24/2024 10:38 AM CDT Oxygen Saturation 100% 08/24/2024 10:38 AM CDT Inhaled Oxygen Concentration - - Weight 71.7 kg (158 lb) 08/24/2024 10:38 AM CDT Height 153.7 cm (5' 0.5 ) 08/24/2024 10:38 AM CD T Body Mass Index 30.35 08/24/2024 10:38 AM CDT Plan of Treatment Upcoming Encounters Date Type Department Care Team (Late st Contact Info) Description 12/09/2024 3:40 PM CDT Office Visit [facility] [address] [address] TyraReena mccullough, [facility] [address] [address] Health Maintenance Due Date Last Done Comments FIT/ DNA Q 3 YEARS (AUTO ORDER) 12/06/1967 FIT/FOBT Q 1 YEAR (AUTO ORDER) 12/06/1967 FIT-DNA Q 3 years 1994 FIT/FOBT Q 1 year 1994 Flex Sig/CT Colonography Q 5 years 1994 PNEUMOCOCCAL VACCINE 50+ YEA RS (1 of 1 - PCV) 12/06/1999 ZOSTER VACCINE (1 of 2) 12/06/1999 DTAP/TDAP/TD VACCINES (1 - Tdap) 08/30/2004 08/30/19 05 RSV VACCINE (60+ or ) (1 - Risk 60-74 years 1-dose series) 2009 OSTEOPOROSIS SCREENING 2014 [place] Preventative Visit/Annual Wellness Visit 05/06/2024 09/03/2023, 06/22/2022, 10/18/2021, Additional history exists BREAST CANCER SCREENING 06/13/2024 06/13/19 24, 03/05/2022, 07/28/2021, Additional history exists INFLUENZA VACCINE (#1) 2024 4, 02/12/2024, 01/24/2023, Additional history exists FLEX SIG/CT COLONOGRAPHY Q 5 YEARS (AUTO ORDER) 07/07/2029 07/07/2024, 07/07/2024 COLORECTAL CANCER SCREENING (AUTO ORDER) 07/07/2034 07/07/2024 COLORECTAL SCREENING 07/07/2034 07/07/2024 Colorectal Cancer Screening (AUTO ORDER) 07/07/2034 Colorectal Cancer Screening 07/07/2034 Procedures Procedure Name Priority Date/Time Associated Diagnosis Comments COMPREHENSIVE METABOLIC PANEL Routine 12/02/2024 10:26 AM CDT REFERENCE LAB PROCESSING FEE Routine 10/26/2024 11:01 AM CDT Stage 3b chronic kidney disease (CMS/HCC) ENDOSCOPY, COLON, DIAGNOSTIC Routine 07/07/2024 9:19 AM INDUSTRIAL ENGINEER MAMMO DIAGNOSTIC UNI RIGHT W OR WO CAD Routine 06/13/2023 1:13 PM INDUSTRIAL ENGINEER from Last 3 Months or Most Recently Relevant to Health Maintenance Results * COMPREHENSIVE METABOLIC PANEL (12/02/2024 10:26 AM CDT) Blood us Abstract Provider CHEMISTRY ORDERABLES Final Res ult * REFERENCE LAB PROCESSING FEE (10/26/2024 11:01 AM CDT) REFERENCE LAB SENDOUT Sent to Ref Lab 10/26/2024 1:02 PM CDT [facility] Other, specify BLOOD SPECIMEN / Unknown Collection / Unknown 10/26/2024 11:01 AM CDT 10/26/2024 11:01 AM CDT us [address] NP CHEMISTRY ORDERABLES Final Resul t [facility] CLIA # [id number] [address] [place] [address] * ENDOSCOPY, COLON, DIAGNOSTIC (07/07/2024 9:19 AM INDUSTRIAL ENGINEER) Arben Prado MD GI PROCEDURE ORDERABLES F inal Result * MAMMO DIAGNOSTIC UNI RIGHT W OR WO CAD (06/13/2023 1:13 PM INDUSTRIAL ENGINEER) Anatomical Region Laterality Modality Breast Right Mammography Abstract Provider MAMMO ORDERABLES Edited Result - Final from Last 3 Months or Most Recently Relevant to Health Maintenance Insurance BCBS MEDICARE HMO Care Teams Superintendent Colliery Relationship Specialty Start Date End Date Arben Prado MD [address] [facility] [place] [address] PCP - General Family Practice 03/16/22
--- OUTSIDE RECORDS SUMMARY | 2024-12-04 02:52 | XMS_ITS | Encounter Summary ---
Author Organization [facility] Address [address] [place] [address] Care Team Providers Care Compliance Aide Name Role Phone Arben Prado MD Primary Care Provider +1 -[phone] Encounter Details Date Type Department Care Team (Latest Contact Info) Description 09/09/2001 Outpatient Historical [facility] Medicine- [address] [phone] Omi Tolbert MD [address] [phone] Periapical abscess (Primary Dx) Social History Tobacco Use Types Packs/Day Years Used Date Smoking Tobacco: Never Assessed Comments Unknown Sex and Gender Information Value Date Recorded Sex Assigned at Not on file Legal Sex Female 6:22 AM RETORT FURNACE HELPER Gender Identity Not on file Sexual Orientation Not on file documented as of this encounter Plan of Treatment Not on file documented as of this encounter Visit Diagnoses Diagnosis Periapical abscess- Primary Periapical abscess without sinus documented in this encounter Care Teams Compliance Aide Relationship Specialty Start Date End Date Arben Prado MD [address] [address] PCP - General Family Practice 02/18/18 documented as of this encounter
--- OUTSIDE RECORDS SUMMARY | 2024-12-04 02:52 | XMS_ITS | Encounter Summary ---
Author Organization [facility] Address [address] [place] [address] Care Team Providers Care Medical Equipment Repairer Name Role Phone Arben Prado MD Primary Care Provider +1 -[phone] Encounter Details Date Type Department Care Team (Latest Contact Info) Description 07/18/2004 Outpatient Historical [facility] Family Medicine- [address] [place] [address] Raul Padilla, PA NO ADDRESS ON FILE AFTERCARE MANAGER OF CORPORATE USE MEDICATN (Primary Dx); SCREENING-LIPOID DISORDERS Social History Tobacco Use Types Packs/Day Years Used Date Smoking Tobacco: Never Assessed Comments Unknown Sex and Gender Information Value Date Recorded Sex Assigned at Not on file Legal Sex Female 6:22 AM SPACECRAFT SYSTEMS ENGINEER Gender Identity Not on file Sexual Orientation Not on file documented as of this encounter Plan of Treatment Not on file documented as of this encounter Visit Diagnoses Diagnosis Encounter for long-term (current) use of other medications- Primary Screening for lipoid disorders documented in this encounter Care Teams Medical Equipment Repairer Relationship Specialty Start Date End Date Arben Prado MD [address] [facility] [address] [place] [address] PCP - General Family Practice 02/18/18 documented as of this encounter
--- OUTSIDE RECORDS SUMMARY | 2024-12-04 02:52 | XMS_ITS | Encounter Summary ---
Author Organization [facility] Address [address] [place] [address] Care Team Providers Care Plane Tableman Name Role Phone Arben Prado MD Primary Care Provider +1 -[phone] Encounter Details Date Type Department Care Team (Latest Contact Info) Description 04/09/2000 Outpatient Historical [facility] Family Medicine- [address] [place] [address] Yamil Palma, DO NO ADDRESS ON FILE Acute upper respiratory infections of unspecified site (Primary Dx) Social History Tobacco Use Types Packs/Day Years Used Date Smoking Tobacco: Never Assessed Comments Unknown Sex and Gender Information Value Date Recorded Sex Assigned at Not on file Legal Sex Female 6:22 AM SHEET ROCK LAYER Gender Identity Not on file Sexual Orientation Not on file documented as of this encounter Plan of Treatment Not on file documented as of this encounter Visit Diagnoses Diagnosis Acute upper respiratory infections of unspecified site- Primary documented in this encounter Care Teams Plane Tableman Relationship Specialty Start Date End Date Arben Prado MD [address] [phone] PCP - General Family Practice 02/18/18 documented as of this encounter
--- OUTSIDE RECORDS SUMMARY | 2024-12-04 02:52 | XMS_ITS | Encounter Summary ---
Author Organization [facility] Address [address] [place] [address] Care Team Providers Care Group Chief Operator Name Role Phone Arben Prado MD Primary Care Provider +1 -[phone] Encounter Details Date Type Department Care Team (Latest Contact Info) Description 01/19/2000 Outpatient Historical [facility] Medicine [address] [phone] Yamil Palma DO NO ADDRESS ON FILE Other and unspecified ovarian cyst (Primary Dx); Abdominal pain, unspecified site; Dysmenorrhea Social History Tobacco Use Types Packs/Day Years Used Date Smoking Tobacco: Never Assessed Comments Unknown Sex and Gender Information Value Date Recorded Sex Assigned at Not on file Legal Sex Female 6:22 AM ADMINISTRATIVE AIDE Gender Identity Not on file Sexual Orientation Not on file documented as of this encounter Plan of Treatment Not on file documented as of this encounter Visit Diagnoses Diagnosis Other and unspecified ovarian cyst- Primary Abdominal pain, unspecified site Dysmenorrhea documented in this encounter Care Teams Group Chief Operator Relationship Specialty Start Date End Date Arben Prado MD [address] [address] PCP - General Family Practice 02/18/18 documented as of this encounter
--- OUTSIDE RECORDS SUMMARY | 2024-12-04 02:52 | XMS_ITS | Encounter Summary ---
Author Organization [facility] Address [address] [place] [address] Care Team Providers Care Long Wall Mining Machine Tender Name Role Phone Arben Prado MD Primary Care Provider +1 [phone] Encounter Details Date Type Department Care Team (Late st Contact Info) Description 08/22/2004 Outpatient Historical [facility] Family Medicine- [address] [place] [phone] Raul Padilla, PA NO ADDRESS ON FILE Social History Tobacco Use Types Packs/Day Years Used Date Smoking Tobacco: Never Assessed Comments Unknown Sex and Gender Information Value Date Recorded Sex Assigned at Not on file Legal Sex Female 6:22 AM SLD TEACHER Gender Identity Not on file Sexual Orientation Not on file documented as of this encounter Plan of Treatment Not on file documented as of this encounter Procedures Procedure Name Priority Date/Time Associated Diagnosis Comments CK Routine 08/22/2004 9:45 AM CDT HEPATIC FUNCTION PANEL Routine 08/22/2004 9:45 AM CDT LIPID PANEL Routine 08/22/2004 9:45 AM CDT documented in this encounter Results * (ABNORMAL) CK (08/22/2004 9:45 AM CDT) CK 223(H) 0 - 133 IU/L INTERFACE SYSTEM 08/22/2004 9:45 AM CDT Raul ASHRAF CHEMISTRY ORDERABLES Final Re sult Performing Organization Address City/[facility] Co de Phone Number INTERFACE SYSTEM Refer to clinic/hospital department * LIPID PANEL (08/22/2004 9:45 AM CDT) CALCULATED TOTAL CHOLESTEROL TO HDL RATIO 3.41 3.27 - 4.44 INTERFACE SYSTEM HDL 54 40 - 60 mg/dL INTERFACE SYSTEM LDL CALCULATED 109 0 - 130 mg/dL INTERFACE SYSTEM CHOLESTEROL 184 75 - 200 mg/dL INTERFACE SYSTEM TRIGLYCERIDE 105 0 - 200 mg/dL INTERFACE SYSTEM 08/22/2004 9:45 AM CDT Raul ASHRAF CHEMISTRY ORDERABLES Final Re sult Performing Organization Address [facility] de Phone Number INTERFACE SYSTEM Refer to clinic/hospital department * (ABNORMAL) HEPATIC FUNCTION PANEL (08/22/2004 9:45 AM CDT) BILIRUBIN DIRECT 0.0 0.0 - 0.4 mg/dL (inactive) INTERFACE SYSTEM ALKALINE PHOSPHATASE 187(H) 38 - 126 IU/L INTERFACE SYSTEM TOTAL PROTEIN 7.4 6.3 - 8.2 g/dL INTERFACE SYSTEM ALBUMIN 3.9 3.5 - 5.0 g/dL INTERFACE SYSTEM AST 26 14 - 36 IU/L INTERFACE SYSTEM ALT 23 9 - 52 IU/L INTERFACE SYSTEM BILIRUBIN TOTAL 0.3 0.2 - 1.4 mg/dL INTERFACE SYSTEM 08/22/2004 9:45 AM CDT Raul ASHRAF CHEMISTRY ORDERABLES Final Re sult INTERFACE SYSTEM Refer to clinic/hospital department documented in this encounter Visit Diagnoses Not on filedocumented in this encounter Care Teams Long Wall Mining Machine Tender Relationship Specialty Start Date End Date Arben Prado MD [address] [facility] [address] [place] [phone] PCP - General Family Practice 02/18/18 documented as of this encounter
--- OUTSIDE RECORDS SUMMARY | 2024-12-04 02:52 | XMS_ITS | Encounter Summary ---
Author Organization [facility] Address [address] [place] [address] Care Team Providers Care Cigarette Making Machine Operator Name Role Phone Arben Prado MD Primary Care Provider [phone] [phone] Encounter Details Date Type Department Care Team (Latest Contact Info) Description 01/10/2000 Outpatient Historical [facility] Medicine [address] [phone] Yamil Palma, NO ADDRESS ON FILE Unspecified symptom associated with female genital organs (Primary Dx); Gynecologic examination; Vaginitis and vulvovaginitis, unspecified Social History Tobacco Use Types Packs/Day Years Used Date Smoking Tobacco: Never Assessed Comments Unknown Sex and Gender Information Value Date Recorded Sex Assigned at Not on file Legal Sex Female 6:22 AM STEAM CLEANER Gender Identity Not on file Sexual Orientation Not on file documented as of this encounter Plan of Treatment Not on file documented as of this encounter Visit Diagnoses Diagnosis Unspecified symptom associated with female genital organs- Primary Gynecologic examination Gynecological examination Vaginitis and vulvovaginitis, unspecified documented in this encounter Care Teams Cigarette Making Machine Operator Relationship Specialty Start Date End Date Arben Prado MD [address] [phone] PCP - General Family Practice 02/18/18 documented as of this encounter
--- OUTSIDE RECORDS SUMMARY | 2024-12-04 02:52 | XMS_ITS | Encounter Summary ---
Author Organization [facility] Address [address] [place] [address] Care Team Providers Care Supervisor Photostat Name Role Phone Arben Prado MD Primary Care Provider +1 [phone] Encounter Details Date Type Department Care Team (Latest Contact Info) Description 11/28/1999 Outpatient Historical [facility] Family Medicine- [address] [place] [phone] Yamil Palma, DO NO ADDRESS ON FILE Acute upper respiratory infections of unspecified site (Primary Dx) Social History Tobacco Use Types Packs/Day Years Used Date Smoking Tobacco: Never Assessed Comments Unknown Sex and Gender Information Value Date Recorded Sex Assigned at Not on file Legal Sex Female 6:22 AM WHOLESALE REPRESENTATIVE Gender Identity Not on file Sexual Orientation Not on file documented as of this encounter Plan of Treatment Not on file documented as of this encounter Visit Diagnoses Diagnosis Acute upper respiratory infections of unspecified site- Primary documented in this encounter Care Teams Supervisor Photostat Relationship Specialty Start Date End Date Arben Prado MD [address] [phone] PCP - General Family Practice 02/18/18 documented as of this encounter
--- OUTSIDE RECORDS SUMMARY | 2024-12-04 02:52 | XMS_ITS ---
Author Organization [facility] Address [address] [place] [address] Care Team Providers Care Welfare Officer Name Role Phone Arben Prado MD Primary Care Provider +1 [phone] Active Problems Problem Noted Date Diagnosed Date [...] Word Counts - [facility] Prediabetes 12/30/2020 Nausea and vomiting 09/24/2018 Acute colitis 09/24/2018 Acute diarrhea 09/24/2018 ANTOINETTE (acute kidney injury) 09/24/2018 Anxiety state 07/31/2017 Hyperlipidemia 10/23/2016 Recurrent major depressive disorder, in full rem ission 10/11/2016 Assessment & Plan (10/18/2021 3:03 PM CDT): Stable. Continue current treatment. Every Word Counts - [facility] History of breast cancer 10/11/2016 Benign hypertension 12/15/2015 Current Treatment and Therapy Plans No current plan information found. Past Treatment and Therapy Plans No past plan information found. Lifetime Dose Tracking * Chemical Lifetime Dose Automatic Entry Manual Entr y Effective Dose 11.3 mSv 0 mSv 11.3 mSv Total DLP 621 DLP 0 DLP 621 DLP CTDIvol Max 17.8 mGy 0 mGy 17.8 mGy CTDIvol Min 17.8 mGy 0 mGy 17.8 mGy Resolved Problems Problem Noted Date Diagnosed Date Resolved Date Bacteremia 04/04/2013 02/06/2015 Pneumonia, organism unspecified(486) 04/03/2013 02/06/2015
--- OUTSIDE RECORDS SUMMARY | 2024-12-04 02:52 | XMS_ITS | Encounter Summary ---
Author Organization [facility] Address [address] [place] [address] Care Team Providers Care Lens Block Gauger Name Role Phone Arben Prado MD Primary Care Provider [phone] [phone] Encounter Details Date Type Department Care Team (Latest Contact Info) Description 08/05/2001 Outpatient Historical [facility] Family Medicine- [address] [place] [phone] Yamil Palma, NO ADDRESS ON FILE ACUTE SINUSITIS NOS (Primary Dx) Social History Tobacco Use Types Packs/Day Years Used Date Smoking Tobacco: Never Assessed Comments Unknown Sex and Gender Information Value Date Recorded Sex Assigned at Not on file 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
--- OUTSIDE RECORDS SUMMARY | 2024-12-04 02:52 | XMS_ITS | Encounter Summary ---
Author Organization [facility] Address [address] [place] [address] Care Team Providers Care Director Medicare Sales Name Role Phone Arben Prado MD Primary Care Provider +1 [phone] Encounter Details Date Type Department Care Team (Latest Contact Info) Description 12/20/2000 Outpatient Historical [facility] Medicine[address] [phone] Yamil Palma DO NO ADDRESS ON FILE Dermatitis due to plant (Primary Dx) Social History Tobacco Use Types Packs/Day Years Used Date Smoking Tobacco: Never Assessed Comments Unknown Sex and Gender Information Value Date Recorded Sex Assigned at Not on file 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
--- OUTSIDE RECORDS SUMMARY | 2024-12-04 02:52 | XMS_ITS | Encounter Summary ---
Author Organization [facility] Address [address] [place] [address] Care Team Providers Care Bread Icer Name Role Phone Arben Prado MD Primary Care Provider +1 [phone] Encounter Details Date Type Department Care Team (Latest Contact Info) Description 08/11/2002 Outpatient Historical [facility] Family Medicine- [address] [place] [phone] Yamil Palma, DO NO ADDRESS ON FILE ACUTE STRESS REACT NOS (Primary Dx); CERVICALGIA; ALLERGY, UNSPECIFIED Social History Tobacco Use Types Packs/Day Years Used Date Smoking Tobacco: Never Assessed Comments Unknown Sex and Gender Information Value Date Recorded Sex Assigned at Not on file 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
--- OUTSIDE RECORDS SUMMARY | 2024-12-04 02:52 | XMS_ITS | Encounter Summary ---
Author Organization [facility] Address [address] [place] [address] Care Team Providers Care Practice Performance Manager Name Role Phone Arben Prado MD Primary Care Provider +1 [phone] Encounter Details Date Type Department Care Team (Late st Contact Info) Description 03/21/[address] 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
== END 2024-12-03 11:39 | disposition home or self-care (01) ==
LOC: ER 17:56 → MEDSURG 18:49
PROVIDERS: Admitting Provider Internal Medicine; Emergency Provider Family Medicine; PCP Family Medicine; Visit Provider Internal Medicine
DX: R09.02 Hypoxemia (principal); Z79.891 Long term (current) use of opiate analgesic; I12.9 Hypertensive chronic kidney disease with stage 1 through stage 4 chronic kidney disease, or unspecified chronic kidney disease; N18.9 Chronic kidney disease, unspecified; T45.1X5A Adverse effect of antineoplastic and immunosuppressive drugs, initial encounter; C50.919 Malignant neoplasm of unspecified site of unspecified female breast; E78.5 Hyperlipidemia, unspecified; G62.82 Radiation-induced polyneuropathy; K21.9 Gastro-esophageal reflux disease without esophagitis; F41.9 Anxiety disorder, unspecified; Z87.891 Personal history of nicotine dependence; Z90.11 Acquired absence of right breast and nipple
CPT/HCPCS: 36415; 36600; 71045; 71046; 80048; 80051; 80053; 81001; 82330; 82805; 84484; 85025; 93005; 94640; 96372; 96374; 99285; G0378; J1642; J1650; J1938; J9999

== ENCOUNTER → 2024-12-31 13:23 | Outpatient (BNVA) | payer MEDICARE, SELFPAY | PROVIDERS: PCP Family Medicine; Visit Provider Student in an Organized Health Care Education/Training Program | DX: Z95.828 Presence of other vascular implants and grafts (principal) | CPT/HCPCS: 99213 ==

== ENCOUNTER 2025-04-22 12:43 | Outpatient (CLI) | payer MEDICARE, SELFPAY ==
[2025-04-22 13:34] LABS: Hematocrit 39.0 % (36-47); Hemoglobin 13.10 g/dL (11.27-16.99); Mean Corpuscular HGB Conc 33.6 g/dL (30-55); Mean Corpuscular Hemoglobin 29.0 pg (27-33); Mean Corpuscular Volume 86.5 fl (85-98); Nucleated Red Blood Cells % 0 %; Platelet Count 209 10^3/cmm (157-399); Red Blood Count 4.51 10^6/uL (3.85-5.65); White Blood Count 6.67 10^3/uL (3.29-11.43)
[2025-04-22 14:08] LABS: Creatinine Urine, Random 85 mg/dL (28-217); Microalbum Creatinine Ratio Ur 12 mg/dL (0-20)
[2025-04-22 14:10] LABS: Albumin Level 4.1 g/dL (3.5-5.2); Anion Gap 20.5 (5-19); Blood Urea Nitrogen 17 mg/dL (8-23); Calcium 9.1 mg/dL (8.5-10.5); Calcium 9.2 mg/dL (8.5-10.5); Carbon Dioxide 20 mmol/L (22-29); Chloride 100 mmol/L (98-107); Glucose 91 mg/dL (65-115); Potassium 4.5 mmol/L (3.5-5.1); Sodium 136 mmol/L (136-145)
== END 2025-04-22 12:44 | disposition home or self-care (01) ==
PROVIDERS: PCP Family Medicine; Visit Provider Registered Nurse
DX: N18.32 Chronic kidney disease, stage 3b (principal)
CPT/HCPCS: 36415; 80069; 82044; 82310; 83970; 85025